=== PATIENT | female | born 1955 | race Caucasian/White ===

== ENCOUNTER 2016-09-06 08:35 | Outpatient (RCR) | payer MEDICAID ==
[~2016-09-06 08:35] MED LIST: ASCO500T PO; ATOR1TAB21 PO; CALC600T57 PO; GABA-279 PO; GLIP5TAB15 PO; LEVA500T PO; LIDO2.5C15 EXT; LOMO2.5T PO; LORA10TA2 PO; LORT5TAB PO; METF-415 PO; METO10TA2 PO; MINO100C PO; OMEP20CA3 PO; POTA10CA PO; VALT500T PO; VITA400C2 PO
== END 2016-10-04 ==
LOC: M ONCR 08:35
PROVIDERS: ATTEND Radiology Radiation Oncology
DX: C50.212 Malignant neoplasm of upper-inner quadrant of left female breast (principal)

== ENCOUNTER 2016-09-11 05:21 | Emergency (ER) | payer MEDICAID ==
[2016-09-11 06:33] LABS: BASO # 0.2 K/mm3 (0.0-0.2); BASO % 1.3 % (0.0-1.0); EOS # 0.2 K/mm3 (0.0-0.50); EOS % 1.3 % (0.0-3.0); LARGE UNSTAINED CELL # 0.3 K/mm3 (0.0-0.4); LARGE UNSTAINED CELL % 2.2 % (0.0-4.0); LYMPH % 12.5 % (24.0-44.0); MEAN CORPUSCULAR HEMOGLOBIN 31.2 pg (27.0-33.0); MEAN CORPUSCULAR HGB CONC 35.1 g/dl (32.0-36.5); MONO # 0.7 K/mm3 (0.0-0.8); MONO % 5.1 % (0.0-5.0); NEUTROPHILS # 10.5 K/mm3 (1.8-7.7); NEUTROPHILS % 77.7 % (36.0-66.0); PLATELET COUNT, AUTOMATED 200 k/mm3 (150-450); WHITE BLOOD COUNT 13.6 K/mm3 (4.0-10.0)
[2016-09-11 06:39] LABS: ALBUMIN 4.1 GM/DL (3.2-5.2); ALBUMIN/GLOBULIN RATIO 1.17 (1.00-1.93); ALKALINE PHOSPHATASE 181 U/L (45-117); ALT/SGPT 24 U/L (12-78); AMYLASE 82 U/L (25-115); ANION GAP 14 MEQ/L (8-16); AST/SGOT 48 U/L (15-37); BILIRUBIN,DIRECT 0.2 MG/DL (0.0-0.2); BILIRUBIN,TOTAL 1.1 MG/DL (0.2-1.0); BLOOD UREA NITROGEN 21 MG/DL (7-18); CALCIUM LEVEL 9.5 MG/DL (8.8-10.2); CARBON DIOXIDE LEVEL 24 MEQ/L (21-32); CHLORIDE LEVEL 104 MEQ/L (98-107); CREATININE FOR GFR 0.91 MG/DL (0.55-1.02); GLOMERULAR FILTRATION RATE > 60.0 (>45); GLUCOSE, FASTING 235 MG/DL (80-110); POTASSIUM SERUM 3.5 MEQ/L (3.5-5.1); SODIUM LEVEL 142 MEQ/L (136-145); TOTAL PROTEIN 7.6 GM/DL (6.4-8.2)
[2016-09-11] MEDS ORDERED: methylPREDNISolone INJ 125 MG/2 ML VIAL (J2930) As Ordered ONE (07:10)
[2016-09-11] MEDS ORDERED: diphenhydrAMINE INJ 50MG/ML VIAL (J1200) As Ordered ONE (07:10)
[2016-09-11] MEDS ORDERED: FAMOTIDINE/NS 20 MG/50 ML BAG (S0028) As Ordered ONE (07:10)
--- NOTE | 2016-09-11 10:22 | EDDOCDS ---
Physician Documentation [facility] Name: Estrellita Ferrari Age: 61 yrs Sex: Female : 1955 Arrival Date: 09/11/2016 Time: 05:21 Bed 13 Private MD: Disposition: 09/11/16 10:03 Discharged to Home/Self Care. Impression: Vomiting, Diarrhea, unspecified, Urticaria, unspecified. - Condition is Stable. - Discharge Instructions: Diarrhea, Hives, Nausea and Vomiting. - Prescriptions for Benadryl 25 mg Oral Capsule - take 1 capsule by ORAL route every 8 hours As needed; 20 tablet. Pepcid 20 mg Oral Tablet - take 1 tablet by ORAL route every 12 hours for 5 days; 10 tablet. Prednisone 20 mg Oral Tablet - take 3 tablet by ORAL route once daily for 5 days; 15 tablet. ZOFRAN ODT 4 mg - dissolve 1 tablet by ORAL route 4 times per day As needed do not chew, do not swallow whole; 10 tablet. - Medication Reconciliation, Local Pharmacy Hours form. - Follow up: Charlee Glass MD; When: 1 - 2 days. - Problem is new. - Symptoms have improved. - Notes: follow up with both of your doctors. return if worsening symptoms Historical: - Allergies: Flagyl; PENICILLINS; SULFA (SULFONAMIDES); breast removal lymph gland removal left side; - Home Meds: 1. Glucotrol Oral once daily 2. Invokana oral 1 tab once daily 3. metformin 500 mg Oral tab 4 tab daily 4. Vitamin C 500 mg Oral tab daily 5. Vitamin E 500mg Oral once daily 6. gabapentin 100 mg Oral tab three times a day 7. cholesterol med - PMHx: Cataracts; Diabetes - NIDDM: controlled; patent ductus; breast cancer; - PSHx: Cholecystectomy; Cataract Surgery- Bilateral; breast and lymph gland removal; - Social history: Smoking status: Patient states former smoker of tobacco. No barriers to communication noted, The patient speaks fluent Surinamese, Speaks appropriately for age. - Family history: No immediate family members are acutely ill. - : The pt / caregiver states he / she is not on anticoagulants. Home medication list is obtained from the patient. - Exposure Risk Screening:: None identified. Vital Signs: 09/11 05:31 BP 137 / 71; Pulse 121; Resp 20; Temp 96.3(T); Pulse Ox 100% on R/A; Weight 58.51 kg / kmg1 128.99 lbs; Height 5 ft. 3 in. (160.02 cm); 05:50 Pulse 108 MON; Pulse Ox 99% ; jc4 07:18 BP 130 / 70 (auto/); jc4 07:32 Pulse 90 MON; Pulse Ox 98% ; jc4 07:33 BP 120 / 58 (auto/); jc4 07:58 BP 123 / 59; Pulse 85; Resp 20; Temp 98.6(TE); Pulse Ox 98% on R/A; Pain 4/10; jc4 08:03 BP 112 / 57 (auto/); jc4 08:04 Pulse 86 MON; Pulse Ox 97% ; jc4 08:17 Pulse 90 MON; Pulse Ox 96% ; jc4 08:18 BP 117 / 56 (auto/); jc4 08:32 Pulse 92 MON; Pulse Ox 94% ; jc4 08:33 BP 119 / 56 (auto/); jc4 08:48 BP 118 / 59 (auto/); jc4 08:48 Pulse 94 MON; Pulse Ox 93% ; jc4 08:51 BP 118 / 59; Pulse 93; Resp 20; Pulse Ox 94% on R/A; Pain 0/10; jc4 09:03 BP 123 / 60 (auto/); jc4 09:03 Pulse 94 MON; Pulse Ox 93% ; jc4 09:18 BP 133 / 59 (auto/); jc4 09:18 Pulse 94 MON; Pulse Ox 92% ; jc4 09:33 BP 113 / 56 (auto/); jc4 09:35 Pulse 92 MON; Pulse Ox 93% ; jc4 09:48 BP 115 / 59 (auto/); jc4 09:48 Pulse 94 MON; Pulse Ox 94% ; jc4 10:20 BP 122 / 59; Pulse 90; Resp 20; Temp 98.5(TE); Pulse Ox 97% on R/A; Pain 0/10; jc4 05:31 Body Mass Index 22.85 (58.51 kg, 160.02 cm) kmg1 MDM: 06:19 IV Saline Lock ordered. mm11 06:19 Undress patient appropriately for examination ordered. mm11 06:19 Amylase Ordered. EDMS 06:19 Basic Metabolic Profile Ordered. EDMS 06:19 CBC with Diff Ordered. EDMS 06:19 Cardiac Injury Profile Ordered. EDMS 06:19 Lipase Ordered. EDMS 06:19 Liver Profile Ordered. EDMS 06:19 Troponin Ordered. EDMS 06:20 NOTHING BY MOUTH+DIET ordered. EDMS 06:48 Basic Metabolic Profile Reviewed. ml 06:48 CBC with Diff Reviewed. ml 06:48 Lipase Reviewed. ml 06:48 Liver Profile Reviewed. ml 06:48 Amylase Reviewed. ml 06:48 Cardiac Injury Profile Reviewed. ml 06:48 Troponin Reviewed. ml 06:49 NS 0.9% 1000 ml IV at bolus once ordered. ml 06:49 Ondansetron 4 mg IVP once ordered. ml 07:06 [employer]/Pulse Ox/q 15 min VS ordered. ml 07:06 Rhythm Strip to chart ordered. ml 07:06 diphenhydrAMINE 50 mg IVP once ordered. ml 07:06 Solu-MEDROL 125 mg IVP once ordered. ml 07:06 Famotidine 20 mg IVPB once over 30 mins; dilute in 50mL of NS ordered. ml 07:53 Financial registration complete. lg 09:33 [facility] Payment Agreement was scanned into [employer] and attached to record. lg Administered Medications: 07:05 Drug: NS 0.9% 1000 ml [sodium chloride 0.9 % intravenous solution] Route: IV; Rate: kmg1 bolus; Site: right antecubital; 08:51 Follow up: BP 118 / 59; Pulse 93 bpm; Resp 20 bpm; Pulse Ox 94% RA; Pain 0/10 Adult; IV jc4 Status: Completed infusion; IV Intake: 1000ml 07:09 Not Given (Patient denies nauseaa): Ondansetron 4 mg IVP once kmg1 07:24 Drug: Famotidine 20 mg [famotidine 10 mg/mL intravenous solution] Route: IVPB; Infused kmg1 Over: 30 mins; Site: right antecubital; 07:59 Follow up: IV Status: Completed infusion; IV Intake: 50ml jc4 07:25 Drug: diphenhydrAMINE 50 mg [diphenhydramine 50 mg/mL injection solution (1 mL)] Route: kmg1 IVP; Site: right antecubital; 07:25 Drug: Solu-MEDROL 125 mg [Solu-Medrol 500 mg intravenous solution (125 mg)] Route: IVP; kmg1 Site: right antecubital; Signatures: Dispatcher [employer] Micaela Pal MD MD ml Ian Bryson RN RN Sandeep Acuna, Pavan Browne lg Cesar Pinon DO DO mm11 Mar Reddy RN RN jc4 Yvonne Zepeda RN kmg1 The chart was reviewed and I authenticate all verbal orders and agree with the evaluation and treatment provided.Corrections: (The following items were deleted from the chart) 05:36 05:30 PSHx: breast removal and lymph gland removal; madan hager Attachments: 09:33 [facility] Payment Agreement lg MTDD
--- NOTE | 2016-09-11 10:22 | EDDOCDS ---
Nurse's Notes [facility] Name: Estrellita Ferrari Age: 61 yrs Sex: Female : 1955 Arrival Date: 09/11/2016 Time: 05:21 Bed 13 Private MD: Diagnosis: Vomiting;Diarrhea, unspecified;Urticaria, unspecified Presentation: 09/11 05:24 Presenting complaint: Patient states: she started with swelling and redness of the body cz a couple of hours ago, pt has history of breast cancer. Adult Sepsis Screening: The patient does not have new or worsening altered mentation. Patient's respiratory rate is less than 22. Systolic blood pressure is greater than 100. Patient has a qSOFA score of 0- Negative Sepsis Screen. Suicide/Homicide risk assessment- the patient denies having any suicidal and/or homicidal ideations and does not present with any other emotional, behavioral or mental health complaints. Status: Patient is not a public services librarian or dependent. Transition of care: patient was not received from another setting of care. 05:24 Acuity: ERICK Level 3 cz 05:24 Method Of Arrival: Walkin/Carried/Asstd cz Triage Assessment: 05:31 General: Appears uncomfortable. Pain: Denies pain. Pt Declines HIV testing. cz Historical: - Allergies: Flagyl; PENICILLINS; SULFA (SULFONAMIDES); breast removal lymph gland removal left side; - Home Meds: 1. Glucotrol Oral once daily 2. Invokana oral 1 tab once daily 3. metformin 500 mg Oral tab 4 tab daily 4. Vitamin C 500 mg Oral tab daily 5. Vitamin E 500mg Oral once daily 6. gabapentin 100 mg Oral tab three times a day 7. cholesterol med - PMHx: Cataracts; Diabetes - NIDDM: controlled; patent ductus; breast cancer; - PSHx: Cholecystectomy; Cataract Surgery- Bilateral; breast and lymph gland removal; - Social history: Smoking status: Patient states former smoker of tobacco. No barriers to communication noted, The patient speaks fluent Algerian, Speaks appropriately for age. - Family history: No immediate family members are acutely ill. - : The pt / caregiver states he / she is not on anticoagulants. Home medication list is obtained from the patient. - Exposure Risk Screening:: None identified. Screenin:57 Screening information is obtained from the patient. Fall risk: No risks identified. jc4 Assistance ADL's: requires no assistance with activities of daily living. Abuse/DV Screen: The patient / caregiver reports he/she is: not in a situation that causes fear, pain or injury. Nutritional screening: No deficits noted. Advance Directives: Currently, there is no health care proxy. There is no active DNR order. There is no living will. There is no Power of Cotton Roll Packer. home support is adequate. Assessment: 05:51 General: Appears in no apparent distress, comfortable, Behavior is appropriate for age, kmg1 cooperative. Respiratory: Airway is patent Respiratory effort is even, unlabored, Respiratory pattern is regular, symmetrical. GI: Abdomen is non- distended Bowel sounds present X 4 quads. Abd is soft and non tender X 4 quads. Reports nausea, vomiting. Derm: Rash noted that is red, raised, on chest, right arm and left arm Swollen area noted on left femoral area, left inguinal area, left iliac crest, left arm and left hand. 07:55 General: Appears in no apparent distress, comfortable, Behavior is cooperative. jc4 Neurological: Level of Consciousness is awake, alert, Oriented to person, place, time. EENT: no difficulty accommodating own saliva. Reports "feels a lump in my throat that doesn't want to go anywhere". Respiratory: Airway is patent Respiratory effort is even, unlabored, Respiratory pattern is regular, symmetrical. GI: Reports "feeling queasy". Derm: Skin is pink, warm & dry. redness and swelling noted to left arm. Redness noted to lower abdomen and left leg, patient states is improved since time of arrival. 08:31 General: Pt resting on stretcher with eyes closed. Respirations easy and full. No jc4 distress noted at this time. Significant other at bedside. IVF infusing well, site clear. Call santoro in reach. 09:48 General: Pt resting on stretcher. Denies any nausea, or abdominal cramping. Color pink, jc4 skin warm and dry. Respirations easy and full. control clerk - sinus rhythm without ectopy. Saline lock in place. Pt tolerating ice chips well. 10:19 General: Appears in no apparent distress, comfortable, Behavior is cooperative. Pain: jc4 Denies pain. Neurological: Level of Consciousness is awake, alert, Oriented to person, place, time. Respiratory: Airway is patent Respiratory effort is even, unlabored, Respiratory pattern is regular, symmetrical. GI: Denies cramping, nausea. Derm: Skin is pink, warm & dry. mild erythema noted to lower abdomen, left arm, left leg. Vital Signs: 05:31 BP 137 / 71; Pulse 121; Resp 20; Temp 96.3(T); Pulse Ox 100% on R/A; Weight 58.51 kg; kmg1 Height 5 ft. 3 in. (160.02 cm); 05:50 Pulse 108 MON; Pulse Ox 99% ; jc4 07:18 BP 130 / 70 (auto/); jc4 07:32 Pulse 90 MON; Pulse Ox 98% ; jc4 07:33 BP 120 / 58 (auto/); jc4 07:58 BP 123 / 59; Pulse 85; Resp 20; Temp 98.6(TE); Pulse Ox 98% on R/A; Pain 4/10; jc4 08:03 BP 112 / 57 (auto/); jc4 08:04 Pulse 86 MON; Pulse Ox 97% ; jc4 08:17 Pulse 90 MON; Pulse Ox 96% ; jc4 08:18 BP 117 / 56 (auto/); jc4 08:32 Pulse 92 MON; Pulse Ox 94% ; jc4 08:33 BP 119 / 56 (auto/); jc4 08:48 BP 118 / 59 (auto/); jc4 08:48 Pulse 94 MON; Pulse Ox 93% ; jc4 08:51 BP 118 / 59; Pulse 93; Resp 20; Pulse Ox 94% on R/A; Pain 0/10; jc4 09:03 BP 123 / 60 (auto/); jc4 09:03 Pulse 94 MON; Pulse Ox 93% ; jc4 09:18 BP 133 / 59 (auto/); jc4 09:18 Pulse 94 MON; Pulse Ox 92% ; jc4 09:33 BP 113 / 56 (auto/); jc4 09:35 Pulse 92 MON; Pulse Ox 93% ; jc4 09:48 BP 115 / 59 (auto/); jc4 09:48 Pulse 94 MON; Pulse Ox 94% ; jc4 10:20 BP 122 / 59; Pulse 90; Resp 20; Temp 98.5(TE); Pulse Ox 97% on R/A; Pain 0/10; jc4 05:31 Body Mass Index 22.85 (58.51 kg, 160.02 cm) kmg1 Vitals: 05:31 Log In Time: September 11, 2016 at 05:21. cz ED Course: 05:23 Patient visited by Deonna Medrano. gjb 05:23 Patient moved to Waiting gjb 05:28 Triage Initiated cz 05:32 Patient moved to 13 cz 06:11 Patient visited by Yvonne Zepeda, JOSE CARLOS. kmg1 06:20 Amylase Sent. kmg1 06:20 Basic Metabolic Profile Sent. kmg1 06:20 CBC with Diff Sent. kmg1 06:20 Cardiac Injury Profile Sent. kmg1 06:20 Lipase Sent. kmg1 06:20 Liver Profile Sent. kmg1 06:20 Troponin Sent. kmg1 06:20 Inserted saline lock: 20 gauge in right antecubital area. Labs drawn. (by ED staff). kmg1 Sent per order to lab. 06:21 Patient visited by Yvonne Zepeda RN. kmg1 06:59 Micaela Tapia MD is Attending Physician. ml 06:59 Patient visited by Micaela Tapia MD. ml 07:15 The patient / caregiver is instructed regarding the plan of care and ED course. jc4 07:54 Patient visited by Mar Reddy RN. jc4 08:00 Patient visited by Mar Reddy RN. jc4 08:31 Patient visited by Mar Reddy RN. jc4 08:50 Patient visited by Mar Reddy RN. jc4 09:33 [facility] Payment Agreement was scanned into [employer] and attached to record. lg 09:48 Patient visited by Mar Reddy RN. jc4 09:50 Patient visited by Mar Reddy RN. jc4 10:02 Charlee Glass MD is Referral Physician. ml 10:20 Discontinued lock intact, bleeding controlled, pressure dressing applied, No jc4 redness/swelling at site. No procedures done that require assistance. Administered Medications: 07:05 Drug: NS 0.9% 1000 ml [sodium chloride 0.9 % intravenous solution] Route: IV; Rate: kmg1 bolus; Site: right antecubital; 08:51 Follow up: BP 118 / 59; Pulse 93 bpm; Resp 20 bpm; Pulse Ox 94% RA; Pain 0/10 Adult; IV jc4 Status: Completed infusion; IV Intake: 1000ml 07:09 Not Given (Patient denies nauseaa): Ondansetron 4 mg IVP once kmg1 07:24 Drug: Famotidine 20 mg [famotidine 10 mg/mL intravenous solution] Route: IVPB; Infused kmg1 Over: 30 mins; Site: right antecubital; 07:59 Follow up: IV Status: Completed infusion; IV Intake: 50ml jc4 07:25 Drug: diphenhydrAMINE 50 mg [diphenhydramine 50 mg/mL injection solution (1 mL)] Route: kmg1 IVP; Site: right antecubital; 07:25 Drug: Solu-MEDROL 125 mg [Solu-Medrol 500 mg intravenous solution (125 mg)] Route: IVP; kmg1 Site: right antecubital; Intake: 07:59 IV: 50.00ml; Total: 50.00ml. jc4 08:51 IV: 1000.00ml; Total: 1050.00ml. jc4 Order Results: Lab Order: Amylase; SPEC'M 09/11/16 05:50 Test: AMYLASE; Value: 82; Range: 25-115; Units: U/L; Status: F Lab Order: Basic Metabolic Profile; SPEC'M 09/11/16 05:50 Test: GLUCOSE, FASTING; Value: 235; Range: 80-110; Abnormal: Above high normal; Units: MG/DL; Status: F Test: BLOOD UREA NITROGEN; Value: 21; Range: 7-18; Abnormal: Above high normal; Units: MG/DL; Status: F Test: CREATININE FOR GFR; Value: 0.91; Range: 0.55-1.02; Units: MG/DL; Status: F Test: GLOMERULAR FILTRATION RATE; Value: > 60.0; Range: >45; Status: F Test: SODIUM LEVEL; Value: 142; Range: 136-145; Units: MEQ/L; Status: F Test: POTASSIUM SERUM; Value: 3.5; Range: 3.5-5.1; Units: MEQ/L; Status: F Test: CHLORIDE LEVEL; Value: 104; Range: 98-107; Units: MEQ/L; Status: F Test: CARBON DIOXIDE LEVEL; Value: 24; Range: 21-32; Units: MEQ/L; Status: F Test: ANION GAP; Value: 14; Range: 8-16; Units: MEQ/L; Status: F Test: CALCIUM LEVEL; Value: 9.5; Range: 8.8-10.2; Units: MG/DL; Status: F Test Note: ; Units are mL/min/1.73 m2 Chronic Kidney Disease Staging per NKF: Stage I & II GFR >=60 Normal to Mildly Decreased Stage III GFR 30-59 Moderately Decreased Stage IV GFR 15-29 Severely Decreased Stage V GFR <15 Very Little GFR Left ESRD GFR <15 on HIGH CLIMBER Lab Order: CBC with Diff; SPEC'M 09/11/16 05:50 Test: WHITE BLOOD COUNT; Value: 13.6; Range: 4.0-10.0; Abnormal: Above high normal; Units: K/mm3; Status: F Test: RED BLOOD COUNT; Value: 5.64; Range: 4.00-5.40; Abnormal: Above high normal; Units: M/mm3; Status: F Test: HEMOGLOBIN; Value: 17.6; Range: 12.0-16.0; Abnormal: Above high normal; Units: g/dl; Status: F Test: HEMATOCRIT; Value: 50.2; Range: 36.0-47.0; Abnormal: Above high normal; Units: %; Status: F Test: MEAN CORPUSCULAR VOLUME; Value: 89.0; Range: 80.0-96.0; Units: fl; Status: F Test: MEAN CORPUSCULAR HEMOGLOBIN; Value: 31.2; Range: 27.0-33.0; Units: pg; Status: F Test: MEAN CORPUSCULAR HGB CONC; Value: 35.1; Range: 32.0-36.5; Units: g/dl; Status: F Test: RED CELL DISTRIBUTION WIDTH; Value: 14.0; Range: 11.5-14.5; Units: %; Status: F Test: PLATELET COUNT, AUTOMATED; Value: 200; Range: 150-450; Units: k/mm3; Status: F Test: NEUTROPHILS %; Value: 77.7; Range: 36.0-66.0; Abnormal: Above high normal; Units: %; Status: F Test: LYMPH %; Value: 12.5; Range: 24.0-44.0; Abnormal: Below low normal; Units: %; Status: F Test: MONO %; Value: 5.1; Range: 0.0-5.0; Abnormal: Above high normal; Units: %; Status: F Test: EOS %; Value: 1.3; Range: 0.0-3.0; Units: %; Status: F Test: BASO %; Value: 1.3; Range: 0.0-1.0; Abnormal: Above high normal; Units: %; Status: F Test: LARGE UNSTAINED CELL %; Value: 2.2; Range: 0.0-4.0; Units: %; Status: F Test: NEUTROPHILS #; Value: 10.5; Range: 1.8-7.7; Abnormal: Above high normal; Units: K/mm3; Status: F Test: LYMPH #; Value: 2.0; Range: 1.5-4.5; Units: K/mm3; Status: F Test: MONO #; Value: 0.7; Range: 0.0-0.8; Units: K/mm3; Status: F Test: EOS #; Value: 0.2; Range: 0.0-0.50; Units: K/mm3; Status: F Test: BASO #; Value: 0.2; Range: 0.0-0.2; Units: K/mm3; Status: F Test: LARGE UNSTAINED CELL #; Value: 0.3; Range: 0.0-0.4; Units: K/mm3; Status: F Lab Order: Cardiac Injury Profile; SPEC' 09/11/16 05:50 Test: CPK CREATINE PHOSPHOKINASE; Value: 65; Range: 26-192; Units: U/L; Status: F Test: CK-MB VALUE MASS; Value: 1.1; Range: 0.0-3.6; Units: NG/ML; Status: F Test: MB/CK RELATIVE INDEX; Value: 1.69; Range: < OR =4; Status: F Test Note: ; DIAGNOSIS CRITERIA MMB ng/ml Relative Index (RI) NON-AMI < or = 5 N/A DAVID ZONE > 5 < or = 4 AMI > 5 > 4 Lab Order: Lipase; SPEC'M 09/11/16 05:50 Test: LIPASE; Value: 462; Range: 73-393; Abnormal: Above high normal; Units: U/L; Status: F Lab Order: Liver Profile; SPEC'M 09/11/16 05:50 Test: AST/SGOT; Value: 48; Range: 15-37; Abnormal: Above high normal; Units: U/L; Status: F Test: ALT/SGPT; Value: 24; Range: 12-78; Units: U/L; Status: F Test: ALKALINE PHOSPHATASE; Value: 181; Range: 45-117; Abnormal: Above high normal; Units: U/L; Status: F Test: BILIRUBIN,TOTAL; Value: 1.1; Range: 0.2-1.0; Abnormal: Above high normal; Units: MG/DL; Status: F Test: BILIRUBIN,DIRECT; Value: 0.2; Range: 0.0-0.2; Units: MG/DL; Status: F Test: TOTAL PROTEIN; Value: 7.6; Range: 6.4-8.2; Units: GM/DL; Status: F Test: ALBUMIN; Value: 4.1; Range: 3.2-5.2; Units: GM/DL; Status: F Test: ALBUMIN/GLOBULIN RATIO; Value: 1.17; Range: 1.00-1.93; Status: F Lab Order: Troponin; SPEC'M 09/11/16 05:50 Test: TROPONIN I; Value: < 0.02; Range: < 0.10; Units: NG/ML; Status: F Test Note: ; Troponin I Reference Interval for [place] LOCI: 99th Percentile= 0.00-0.045 ng/ml Risk Stratification: <= 0.10 ng/ml Decreased Risk for Adverse Clinical Events. 0.10-1.50 ng/ml Increased Risk for Adverse Clinical Events. Evaluation of additional criterion and/or repeat testing in 2-6 hours is suggested to rule out myocardial damage. >= 1.50 ng/ml Indicative of Myocardial Injury. Outcome: 10:03 Discharge ordered by Provider. ml 10:20 Discharge Assessment: Patient awake, alert and oriented x 3. No cognitive and/or jc4 functional deficits noted. Patient verbalized understanding of disposition instructions. patient administered narcotics - no. The following High Risk Discharge criteria are identified: None. Discharged to home ambulatory, with significant other. Condition: stable. Discharge instructions given to patient, Instructed on discharge instructions, follow up and referral plans. medication usage, Demonstrated understanding of instructions, medications, Pt was receptive of discharge instructions/ teaching. No special radiology studies were completed. Property :Personal belongings accompany Pt. 10:21 Patient left the ED. jc4 Signatures: Micaela Tapia MD MD ml Garrison, Kelly RN RN kmg1 Ian Bryson RN RN Sandeep Meyer, Mar Salmon lg, RN RN jc4 Deonna Medrano Corrections: (The following items were deleted from the chart) 05:36 05:30 PSHx: breast removal and lymph gland removal; cz cz 06:06 05:31 BP 137 / 71; Pulse 121bpm; Resp 20bpm; Temp 96.3F Tympanic; 58.51 kg; Height 5 kmg1 ft. 3 in.; BMI: 22.8; cz 06:10 05:51 Derm: Rash noted that is red, raised, on chest, right arm and [place] [id number] MTDD
--- NOTE | 2016-09-13 12:40 | EDDOCDS ---
Nurse's Notes [facility] Name: Estrellita Ferrari Age: 61 yrs Sex: Female : 1955 Arrival Date: 09/11/2016 Time: 05:21 Bed 13 Private MD: Diagnosis: Vomiting;Diarrhea, unspecified;Urticaria, unspecified Presentation: 09/11 05:24 Presenting complaint: Patient states: she started with swelling and redness of the body cz a couple of hours ago, pt has history of breast cancer. Adult Sepsis Screening: The patient does not have new or worsening altered mentation. Patient's respiratory rate is less than 22. Systolic blood pressure is greater than 100. Patient has a qSOFA score of 0- Negative Sepsis Screen. Suicide/Homicide risk assessment- the patient denies having any suicidal and/or homicidal ideations and does not present with any other emotional, behavioral or mental health complaints. Status: Patient is not a service advocate contact or dependent. Transition of care: patient was not received from another setting of care. 05:24 Acuity: ERICK Level 3 cz 05:24 Method Of Arrival: Walkin/Carried/Asstd cz Triage Assessment: 05:31 General: Appears uncomfortable. Pain: Denies pain. Pt Declines HIV testing. cz Historical: - Allergies: Flagyl; PENICILLINS; SULFA (SULFONAMIDES); breast removal lymph gland removal left side; - Home Meds: 1. Glucotrol Oral once daily 2. Invokana oral 1 tab once daily 3. metformin 500 mg Oral tab 4 tab daily 4. Vitamin C 500 mg Oral tab daily 5. Vitamin E 500mg Oral once daily 6. gabapentin 100 mg Oral tab three times a day 7. cholesterol med - PMHx: Cataracts; Diabetes - NIDDM: controlled; patent ductus; breast cancer; - PSHx: Cholecystectomy; Cataract Surgery- Bilateral; breast and lymph gland removal; - Social history: Smoking status: Patient states former smoker of tobacco. No barriers to communication noted, The patient speaks fluent French, Speaks appropriately for age. - Family history: No immediate family members are acutely ill. - : The pt / caregiver states he / she is not on anticoagulants. Home medication list is obtained from the patient. - Exposure Risk Screening:: None identified. Screenin:57 Screening information is obtained from the patient. Fall risk: No risks identified. jc4 Assistance ADL's: requires no assistance with activities of daily living. Abuse/DV Screen: The patient / caregiver reports he/she is: not in a situation that causes fear, pain or injury. Nutritional screening: No deficits noted. Advance Directives: Currently, there is no health care proxy. There is no active DNR order. There is no living will. There is no Power of Beef Breaker. home support is adequate. Assessment: 05:51 General: Appears in no apparent distress, comfortable, Behavior is appropriate for age, kmg1 cooperative. Respiratory: Airway is patent Respiratory effort is even, unlabored, Respiratory pattern is regular, symmetrical. GI: Abdomen is non- distended Bowel sounds present X 4 quads. Abd is soft and non tender X 4 quads. Reports nausea, vomiting. Derm: Rash noted that is red, raised, on chest, right arm and left arm Swollen area noted on left femoral area, left inguinal area, left iliac crest, left arm and left hand. 07:55 General: Appears in no apparent distress, comfortable, Behavior is cooperative. jc4 Neurological: Level of Consciousness is awake, alert, Oriented to person, place, time. EENT: no difficulty accommodating own saliva. Reports "feels a lump in my throat that doesn't want to go anywhere". Respiratory: Airway is patent Respiratory effort is even, unlabored, Respiratory pattern is regular, symmetrical. GI: Reports "feeling queasy". Derm: Skin is pink, warm & dry. redness and swelling noted to left arm. Redness noted to lower abdomen and left leg, patient states is improved since time of arrival. 08:31 General: Pt resting on stretcher with eyes closed. Respirations easy and full. No jc4 distress noted at this time. Significant other at bedside. IVF infusing well, site clear. Call santoro in reach. 09:48 General: Pt resting on stretcher. Denies any nausea, or abdominal cramping. Color pink, jc4 skin warm and dry. Respirations easy and full. patient monitor - sinus rhythm without ectopy. Saline lock in place. Pt tolerating ice chips well. 10:19 General: Appears in no apparent distress, comfortable, Behavior is cooperative. Pain: jc4 Denies pain. Neurological: Level of Consciousness is awake, alert, Oriented to person, place, time. Respiratory: Airway is patent Respiratory effort is even, unlabored, Respiratory pattern is regular, symmetrical. GI: Denies cramping, nausea. Derm: Skin is pink, warm & dry. mild erythema noted to lower abdomen, left arm, left leg. Vital Signs: 05:31 BP 137 / 71; Pulse 121; Resp 20; Temp 96.3(T); Pulse Ox 100% on R/A; Weight 58.51 kg; kmg1 Height 5 ft. 3 in. (160.02 cm); 05:50 Pulse 108 MON; Pulse Ox 99% ; jc4 07:18 BP 130 / 70 (auto/); jc4 07:32 Pulse 90 MON; Pulse Ox 98% ; jc4 07:33 BP 120 / 58 (auto/); jc4 07:58 BP 123 / 59; Pulse 85; Resp 20; Temp 98.6(TE); Pulse Ox 98% on R/A; Pain 4/10; jc4 08:03 BP 112 / 57 (auto/); jc4 08:04 Pulse 86 MON; Pulse Ox 97% ; jc4 08:17 Pulse 90 MON; Pulse Ox 96% ; jc4 08:18 BP 117 / 56 (auto/); jc4 08:32 Pulse 92 MON; Pulse Ox 94% ; jc4 08:33 BP 119 / 56 (auto/); jc4 08:48 BP 118 / 59 (auto/); jc4 08:48 Pulse 94 MON; Pulse Ox 93% ; jc4 08:51 BP 118 / 59; Pulse 93; Resp 20; Pulse Ox 94% on R/A; Pain 0/10; jc4 09:03 BP 123 / 60 (auto/); jc4 09:03 Pulse 94 MON; Pulse Ox 93% ; jc4 09:18 BP 133 / 59 (auto/); jc4 09:18 Pulse 94 MON; Pulse Ox 92% ; jc4 09:33 BP 113 / 56 (auto/); jc4 09:35 Pulse 92 MON; Pulse Ox 93% ; jc4 09:48 BP 115 / 59 (auto/); jc4 09:48 Pulse 94 MON; Pulse Ox 94% ; jc4 10:20 BP 122 / 59; Pulse 90; Resp 20; Temp 98.5(TE); Pulse Ox 97% on R/A; Pain 0/10; jc4 05:31 Body Mass Index 22.85 (58.51 kg, 160.02 cm) kmg1 Vitals: 05:31 Log In Time: September 11, 2016 at 05:21. cz ED Course: 05:23 Patient visited by Deonna Medrano. gjb 05:23 Patient moved to Waiting gjb 05:28 Triage Initiated cz 05:32 Patient moved to 13 cz 06:11 Patient visited by Yvonne Zepeda, JOSE CARLOS. kmg1 06:20 Amylase Sent. kmg1 06:20 Basic Metabolic Profile Sent. kmg1 06:20 CBC with Diff Sent. kmg1 06:20 Cardiac Injury Profile Sent. kmg1 06:20 Lipase Sent. kmg1 06:20 Liver Profile Sent. kmg1 06:20 Troponin Sent. kmg1 06:20 Inserted saline lock: 20 gauge in right antecubital area. Labs drawn. (by ED staff). kmg1 Sent per order to lab. 06:21 Patient visited by Yvonne Zepeda RN. kmg1 06:59 Micaela Tapia MD is Attending Physician. ml 06:59 Patient visited by Micaela Tapia MD. ml 07:15 The patient / caregiver is instructed regarding the plan of care and ED course. jc4 07:54 Patient visited by Mar Reddy RN. jc4 08:00 Patient visited by Mar Reddy RN. jc4 08:31 Patient visited by Mar Reddy RN. jc4 08:50 Patient visited by Mar Reddy RN. jc4 09:33 [facility] [place] Agreement was scanned into [employer] and attached to record. lg 09:48 Patient visited by Mar Reddy RN. jc4 09:50 Patient visited by Mar Reddy RN. jc4 10:02 Charlee Glass MD is Referral Physician. ml 10:20 Discontinued lock intact, bleeding controlled, pressure dressing applied, No jc4 redness/swelling at site. No procedures done that require assistance. 12:15 Trend VS was scanned into WEbook and attached to record. gb 13:42 T-Sheet-- Draft Copy was scanned into WEbook and attached to record. seh Administered Medications: 07:05 Drug: NS 0.9% 1000 ml [sodium chloride 0.9 % intravenous solution] Route: IV; Rate: kmg1 bolus; Site: right antecubital; 08:51 Follow up: BP 118 / 59; Pulse 93 bpm; Resp 20 bpm; Pulse Ox 94% RA; Pain 0/10 Adult; IV jc4 Status: Completed infusion; IV Intake: 1000ml 07:09 Not Given (Patient denies nauseaa): Ondansetron 4 mg IVP once kmg1 07:24 Drug: Famotidine 20 mg [famotidine 10 mg/mL intravenous solution] Route: IVPB; Infused kmg1 Over: 30 mins; Site: right antecubital; 07:59 Follow up: IV Status: Completed infusion; IV Intake: 50ml jc4 07:25 Drug: diphenhydrAMINE 50 mg [diphenhydramine 50 mg/mL injection solution (1 mL)] Route: kmg1 IVP; Site: right antecubital; 07:25 Drug: Solu-MEDROL 125 mg [Solu-Medrol 500 mg intravenous solution (125 mg)] Route: IVP; kmg1 Site: right antecubital; Attachments: 12:15 Trend VS gb Intake: 07:59 IV: 50.00ml; Total: 50.00ml. jc4 08:51 IV: 1000.00ml; Total: 1050.00ml. jc4 Order Results: Lab Order: Amylase; SPEC'M 09/11/16 05:50 Test: AMYLASE; Value: 82; Range: 25-115; Units: U/L; Status: F Lab Order: Basic Metabolic Profile; SPEC'M 09/11/16 05:50 Test: GLUCOSE, FASTING; Value: 235; Range: 80-110; Abnormal: Above high normal; Units: MG/DL; Status: F Test: BLOOD UREA NITROGEN; Value: 21; Range: 7-18; Abnormal: Above high normal; Units: MG/DL; Status: F Test: CREATININE FOR GFR; Value: 0.91; Range: 0.55-1.02; Units: MG/DL; Status: F Test: GLOMERULAR FILTRATION RATE; Value: > 60.0; Range: >45; Status: F Test: SODIUM LEVEL; Value: 142; Range: 136-145; Units: MEQ/L; Status: F Test: POTASSIUM SERUM; Value: 3.5; Range: 3.5-5.1; Units: MEQ/L; Status: F Test: CHLORIDE LEVEL; Value: 104; Range: 98-107; Units: MEQ/L; Status: F Test: CARBON DIOXIDE LEVEL; Value: 24; Range: 21-32; Units: MEQ/L; Status: F Test: ANION GAP; Value: 14; Range: 8-16; Units: MEQ/L; Status: F Test: CALCIUM LEVEL; Value: 9.5; Range: 8.8-10.2; Units: MG/DL; Status: F Test Note: ; Units are mL/min/1.73 m2 Chronic Kidney Disease Staging per NKF: Stage I & II GFR >=60 Normal to Mildly Decreased Stage III GFR 30-59 Moderately Decreased Stage IV GFR 15-29 Severely Decreased Stage V GFR <15 Very Little GFR Left ESRD GFR <15 on PUMPER BREWERY Lab Order: CBC with Diff; SPEC'M 09/11/16 05:50 Test: WHITE BLOOD COUNT; Value: 13.6; Range: 4.0-10.0; Abnormal: Above high normal; Units: K/mm3; Status: F Test: RED BLOOD COUNT; Value: 5.64; Range: 4.00-5.40; Abnormal: Above high normal; Units: M/mm3; Status: F Test: HEMOGLOBIN; Value: 17.6; Range: 12.0-16.0; Abnormal: Above high normal; Units: g/dl; Status: F Test: HEMATOCRIT; Value: 50.2; Range: 36.0-47.0; Abnormal: Above high normal; Units: %; Status: F Test: MEAN CORPUSCULAR VOLUME; Value: 89.0; Range: 80.0-96.0; Units: fl; Status: F Test: MEAN CORPUSCULAR HEMOGLOBIN; Value: 31.2; Range: 27.0-33.0; Units: pg; Status: F Test: MEAN CORPUSCULAR HGB CONC; Value: 35.1; Range: 32.0-36.5; Units: g/dl; Status: F Test: RED CELL DISTRIBUTION WIDTH; Value: 14.0; Range: 11.5-14.5; Units: %; Status: F Test: PLATELET COUNT, AUTOMATED; Value: 200; Range: 150-450; Units: k/mm3; Status: F Test: NEUTROPHILS %; Value: 77.7; Range: 36.0-66.0; Abnormal: Above high normal; Units: %; Status: F Test: LYMPH %; Value: 12.5; Range: 24.0-44.0; Abnormal: Below low normal; Units: %; Status: F Test: MONO %; Value: 5.1; Range: 0.0-5.0; Abnormal: Above high normal; Units: %; Status: F Test: EOS %; Value: 1.3; Range: 0.0-3.0; Units: %; Status: F Test: BASO %; Value: 1.3; Range: 0.0-1.0; Abnormal: Above high normal; Units: %; Status: F Test: LARGE UNSTAINED CELL %; Value: 2.2; Range: 0.0-4.0; Units: %; Status: F Test: NEUTROPHILS #; Value: 10.5; Range: 1.8-7.7; Abnormal: Above high normal; Units: K/mm3; Status: F Test: LYMPH #; Value: 2.0; Range: 1.5-4.5; Units: K/mm3; Status: F Test: MONO #; Value: 0.7; Range: 0.0-0.8; Units: K/mm3; Status: F Test: EOS #; Value: 0.2; Range: 0.0-0.50; Units: K/mm3; Status: F Test: BASO #; Value: 0.2; Range: 0.0-0.2; Units: K/mm3; Status: F Test: LARGE UNSTAINED CELL #; Value: 0.3; Range: 0.0-0.4; Units: K/mm3; Status: F Lab Order: Cardiac Injury Profile; SPEC'M 09/11/16 05:50 Test: CPK CREATINE PHOSPHOKINASE; Value: 65; Range: 26-192; Units: U/L; Status: F Test: CK-MB VALUE MASS; Value: 1.1; Range: 0.0-3.6; Units: NG/ML; Status: F Test: MB/CK RELATIVE INDEX; Value: 1.69; Range: < OR =4; Status: F Test Note: ; DIAGNOSIS CRITERIA MMB ng/ml Relative Index (RI) NON-AMI < or = 5 N/A DAVID ZONE > 5 < or = 4 AMI > 5 > 4 Lab Order: Lipase; SPEC'M 09/11/16 05:50 Test: LIPASE; Value: 462; Range: 73-393; Abnormal: Above high normal; Units: U/L; Status: F Lab Order: Liver Profile; SPEC'M 09/11/16 05:50 Test: AST/SGOT; Value: 48; Range: 15-37; Abnormal: Above high normal; Units: U/L; Status: F Test: ALT/SGPT; Value: 24; Range: 12-78; Units: U/L; Status: F Test: ALKALINE PHOSPHATASE; Value: 181; Range: 45-117; Abnormal: Above high normal; Units: U/L; Status: F Test: BILIRUBIN,TOTAL; Value: 1.1; Range: 0.2-1.0; Abnormal: Above high normal; Units: MG/DL; Status: F Test: BILIRUBIN,DIRECT; Value: 0.2; Range: 0.0-0.2; Units: MG/DL; Status: F Test: TOTAL PROTEIN; Value: 7.6; Range: 6.4-8.2; Units: GM/DL; Status: F Test: ALBUMIN; Value: 4.1; Range: 3.2-5.2; Units: GM/DL; Status: F Test: ALBUMIN/GLOBULIN RATIO; Value: 1.17; Range: 1.00-1.93; Status: F Lab Order: Troponin; SPEC'M 09/11/16 05:50 Test: TROPONIN I; Value: < 0.02; Range: < 0.10; Units: NG/ML; Status: F Test Note: ; Troponin I Reference Interval for [email or web address] LOCI: 99th Percentile= 0.00-0.045 ng/ml Risk Stratification: <= 0.10 ng/ml Decreased Risk for Adverse Clinical Events. 0.10-1.50 ng/ml Increased Risk for Adverse Clinical Events. Evaluation of additional criterion and/or repeat testing in 2-6 hours is suggested to rule out myocardial damage. >= 1.50 ng/ml Indicative of Myocardial Injury. Outcome: 10:03 Discharge ordered by Provider. ml 10:20 Discharge Assessment: Patient awake, alert and oriented x 3. No cognitive and/or jc4 functional deficits noted. Patient verbalized understanding of disposition instructions. patient administered narcotics - no. The following High Risk Discharge criteria are identified: None. Discharged to home ambulatory, with significant other. Condition: stable. Discharge instructions given to patient, Instructed on discharge instructions, follow up and referral plans. medication usage, Demonstrated understanding of instructions, medications, Pt was receptive of discharge instructions/ teaching. No special radiology studies were completed. Property :Personal belongings accompany Pt. 10:21 Patient left the ED. jc4 Signatures: Micaela Tapia MD MD Yvonne Zepeda, RN RN kmg1 Ian Bryson RN RN cz Aspen Garcia, Reg Reg gb Sandeep Meyer, Reg Reg lg Mar Reddy RN RN jc4 Deonna Medrano Sarah seh Corrections: (The following items were deleted from the chart) 05:36 05:30 PSHx: breast removal and lymph gland removal; cz cz 06:06 05:31 BP 137 / 71; Pulse 121bpm; Resp 20bpm; Temp 96.3F Tympanic; 58.51 kg; Height 5 kmg1 ft. 3 in.; BMI: 22.8; cz 06:10 05:51 Derm: Rash noted that is red, raised, on chest, right arm and left arm kmg1 kmg1 Chart Complete MTDD
--- NOTE | 2016-09-13 12:40 | EDDOCDS ---
Physician Documentation [facility] Name: Estrellita Ferrari Age: 61 yrs Sex: Female : 1955 Arrival Date: 09/11/2016 Time: 05:21 Bed 13 Private MD: Disposition: 09/11/16 10:03 Discharged to Home/Self Care. Impression: Vomiting, Diarrhea, unspecified, Urticaria, unspecified. - Condition is Stable. - Discharge Instructions: Diarrhea, Hives, Nausea and Vomiting. - Prescriptions for Benadryl 25 mg Oral Capsule - take 1 capsule by ORAL route every 8 hours As needed; 20 tablet. Pepcid 20 mg Oral Tablet - take 1 tablet by ORAL route every 12 hours for 5 days; 10 tablet. Prednisone 20 mg Oral Tablet - take 3 tablet by ORAL route once daily for 5 days; 15 tablet. ZOFRAN ODT 4 mg - dissolve 1 tablet by ORAL route 4 times per day As needed do not chew, do not swallow whole; 10 tablet. - Medication Reconciliation, Local Pharmacy Hours form. - Follow up: Charlee Glass MD; When: 1 - 2 days. - Problem is new. - Symptoms have improved. - Notes: follow up with both of your doctors. return if worsening symptoms Historical: - Allergies: Flagyl; PENICILLINS; SULFA (SULFONAMIDES); breast removal lymph gland removal left side; - Home Meds: 1. Glucotrol Oral once daily 2. Invokana oral 1 tab once daily 3. metformin 500 mg Oral tab 4 tab daily 4. Vitamin C 500 mg Oral tab daily 5. Vitamin E 500mg Oral once daily 6. gabapentin 100 mg Oral tab three times a day 7. cholesterol med - PMHx: Cataracts; Diabetes - NIDDM: controlled; patent ductus; breast cancer; - PSHx: Cholecystectomy; Cataract Surgery- Bilateral; breast and lymph gland removal; - Social history: Smoking status: Patient states former smoker of tobacco. No barriers to communication noted, The patient speaks fluent Kosovan, Speaks appropriately for age. - Family history: No immediate family members are acutely ill. - : The pt / caregiver states he / she is not on anticoagulants. Home medication list is obtained from the patient. - Exposure Risk Screening:: None identified. Vital Signs: 09/11 05:31 BP 137 / 71; Pulse 121; Resp 20; Temp 96.3(T); Pulse Ox 100% on R/A; Weight 58.51 kg / kmg1 128.99 lbs; Height 5 ft. 3 in. (160.02 cm); 05:50 Pulse 108 MON; Pulse Ox 99% ; jc4 07:18 BP 130 / 70 (auto/); jc4 07:32 Pulse 90 MON; Pulse Ox 98% ; jc4 07:33 BP 120 / 58 (auto/); jc4 07:58 BP 123 / 59; Pulse 85; Resp 20; Temp 98.6(TE); Pulse Ox 98% on R/A; Pain 4/10; jc4 08:03 BP 112 / 57 (auto/); jc4 08:04 Pulse 86 MON; Pulse Ox 97% ; jc4 08:17 Pulse 90 MON; Pulse Ox 96% ; jc4 08:18 BP 117 / 56 (auto/); jc4 08:32 Pulse 92 MON; Pulse Ox 94% ; jc4 08:33 BP 119 / 56 (auto/); jc4 08:48 BP 118 / 59 (auto/); jc4 08:48 Pulse 94 MON; Pulse Ox 93% ; jc4 08:51 BP 118 / 59; Pulse 93; Resp 20; Pulse Ox 94% on R/A; Pain 0/10; jc4 09:03 BP 123 / 60 (auto/); jc4 09:03 Pulse 94 MON; Pulse Ox 93% ; jc4 09:18 BP 133 / 59 (auto/); jc4 09:18 Pulse 94 MON; Pulse Ox 92% ; jc4 09:33 BP 113 / 56 (auto/); jc4 09:35 Pulse 92 MON; Pulse Ox 93% ; jc4 09:48 BP 115 / 59 (auto/); jc4 09:48 Pulse 94 MON; Pulse Ox 94% ; jc4 10:20 BP 122 / 59; Pulse 90; Resp 20; Temp 98.5(TE); Pulse Ox 97% on R/A; Pain 0/10; jc4 05:31 Body Mass Index 22.85 (58.51 kg, 160.02 cm) kmg1 MDM: 06:19 IV Saline Lock ordered. mm11 06:19 Undress patient appropriately for examination ordered. mm11 06:19 Amylase Ordered. EDMS 06:19 Basic Metabolic Profile Ordered. EDMS 06:19 CBC with Diff Ordered. EDMS 06:19 Cardiac Injury Profile Ordered. EDMS 06:19 Lipase Ordered. EDMS 06:19 Liver Profile Ordered. EDMS 06:19 Troponin Ordered. EDMS 06:20 NOTHING BY MOUTH+DIET ordered. EDMS 06:48 Basic Metabolic Profile Reviewed. ml 06:48 CBC with Diff Reviewed. ml 06:48 Lipase Reviewed. ml 06:48 Liver Profile Reviewed. ml 06:48 Amylase Reviewed. ml 06:48 Cardiac Injury Profile Reviewed. ml 06:48 Troponin Reviewed. ml 06:49 NS 0.9% 1000 ml IV at bolus once ordered. ml 06:49 Ondansetron 4 mg IVP once ordered. ml 07:06 Tanyard Worker/Pulse Ox/q 15 min VS ordered. ml 07:06 Rhythm Strip to chart ordered. ml 07:06 diphenhydrAMINE 50 mg IVP once ordered. ml 07:06 Solu-MEDROL 125 mg IVP once ordered. ml 07:06 Famotidine 20 mg IVPB once over 30 mins; dilute in 50mL of NS ordered. ml 07:53 Financial registration complete. lg 09:33 [facility] [place] Agreement was scanned into [employer] and attached to record. lg 12:15 Trend VS was scanned into [employer] and attached to record. gb 13:42 T-Sheet-- Draft Copy was scanned into [employer] and attached to record. [facility] Administered Medications: 07:05 Drug: NS 0.9% 1000 ml [sodium chloride 0.9 % intravenous solution] Route: IV; Rate: kmg1 bolus; Site: right antecubital; 08:51 Follow up: BP 118 / 59; Pulse 93 bpm; Resp 20 bpm; Pulse Ox 94% RA; Pain 0/10 Adult; IV jc4 Status: Completed infusion; IV Intake: 1000ml 07:09 Not Given (Patient denies nauseaa): Ondansetron 4 mg IVP once kmg1 07:24 Drug: Famotidine 20 mg [famotidine 10 mg/mL intravenous solution] Route: IVPB; Infused kmg1 Over: 30 mins; Site: right antecubital; 07:59 Follow up: IV Status: Completed infusion; IV Intake: 50ml jc4 07:25 Drug: diphenhydrAMINE 50 mg [diphenhydramine 50 mg/mL injection solution (1 mL)] Route: kmg1 IVP; Site: right antecubital; 07:25 Drug: Solu-MEDROL 125 mg [Solu-Medrol 500 mg intravenous solution (125 mg)] Route: IVP; kmg1 Site: right antecubital; Signatures: Dispatcher [employer] Micaela Pal MD MD Ian Bryson RN RN cz Aspen Garcia, Reg Reg gb Sandeep Meyer, Reg Reg lg Cesar Pinon, DO mm11 Mar Reddy RN RN jc4 Dayna Strange Kelly RN kmg1 The chart was reviewed and I authenticate all verbal orders and agree with the evaluation and treatment provided.Corrections: (The following items were deleted from the chart) 05:36 05:30 PSHx: breast removal and lymph gland removal; madan hager Attachments: 09:33 [facility] Payment Agreement lg 13:42 T-Sheet-- Draft Copy [facility] Chart Complete MTDD
--- NOTE | 2016-09-13 12:41 | EDDOCDS ---
Physician Documentation [facility] Name: Estrellita Ferrari Age: 61 yrs Sex: Female : 1955 Arrival Date: 09/11/2016 Time: 05:21 Bed 13 Private MD: Disposition: 09/11/16 10:03 Discharged to Home/Self Care. Impression: Vomiting, Diarrhea, unspecified, Urticaria, unspecified. - Condition is Stable. - Discharge Instructions: Diarrhea, Hives, Nausea and Vomiting. - Prescriptions for Benadryl 25 mg Oral Capsule - take 1 capsule by ORAL route every 8 hours As needed; 20 tablet. Pepcid 20 mg Oral Tablet - take 1 tablet by ORAL route every 12 hours for 5 days; 10 tablet. Prednisone 20 mg Oral Tablet - take 3 tablet by ORAL route once daily for 5 days; 15 tablet. ZOFRAN ODT 4 mg - dissolve 1 tablet by ORAL route 4 times per day As needed do not chew, do not swallow whole; 10 tablet. - Medication Reconciliation, Local Pharmacy Hours form. - Follow up: Charlee Glass MD; When: 1 - 2 days. - Problem is new. - Symptoms have improved. - Notes: follow up with both of your doctors. return if worsening symptoms Historical: - Allergies: Flagyl; PENICILLINS; SULFA (SULFONAMIDES); breast removal lymph gland removal left side; - Home Meds: 1. Glucotrol Oral once daily 2. Invokana oral 1 tab once daily 3. metformin 500 mg Oral tab 4 tab daily 4. Vitamin C 500 mg Oral tab daily 5. Vitamin E 500mg Oral once daily 6. gabapentin 100 mg Oral tab three times a day 7. cholesterol med - PMHx: Cataracts; Diabetes - NIDDM: controlled; patent ductus; breast cancer; - PSHx: Cholecystectomy; Cataract Surgery- Bilateral; breast and lymph gland removal; - Social history: Smoking status: Patient states former smoker of tobacco. No barriers to communication noted, The patient speaks fluent Jamaican, Speaks appropriately for age. - Family history: No immediate family members are acutely ill. - : The pt / caregiver states he / she is not on anticoagulants. Home medication list is obtained from the patient. - Exposure Risk Screening:: None identified. Vital Signs: 09/11 05:31 BP 137 / 71; Pulse 121; Resp 20; Temp 96.3(T); Pulse Ox 100% on R/A; Weight 58.51 kg / kmg1 128.99 lbs; Height 5 ft. 3 in. (160.02 cm); 05:50 Pulse 108 MON; Pulse Ox 99% ; jc4 07:18 BP 130 / 70 (auto/); jc4 07:32 Pulse 90 MON; Pulse Ox 98% ; jc4 07:33 BP 120 / 58 (auto/); jc4 07:58 BP 123 / 59; Pulse 85; Resp 20; Temp 98.6(TE); Pulse Ox 98% on R/A; Pain 4/10; jc4 08:03 BP 112 / 57 (auto/); jc4 08:04 Pulse 86 MON; Pulse Ox 97% ; jc4 08:17 Pulse 90 MON; Pulse Ox 96% ; jc4 08:18 BP 117 / 56 (auto/); jc4 08:32 Pulse 92 MON; Pulse Ox 94% ; jc4 08:33 BP 119 / 56 (auto/); jc4 08:48 BP 118 / 59 (auto/); jc4 08:48 Pulse 94 MON; Pulse Ox 93% ; jc4 08:51 BP 118 / 59; Pulse 93; Resp 20; Pulse Ox 94% on R/A; Pain 0/10; jc4 09:03 BP 123 / 60 (auto/); jc4 09:03 Pulse 94 MON; Pulse Ox 93% ; jc4 09:18 BP 133 / 59 (auto/); jc4 09:18 Pulse 94 MON; Pulse Ox 92% ; jc4 09:33 BP 113 / 56 (auto/); jc4 09:35 Pulse 92 MON; Pulse Ox 93% ; jc4 09:48 BP 115 / 59 (auto/); jc4 09:48 Pulse 94 MON; Pulse Ox 94% ; jc4 10:20 BP 122 / 59; Pulse 90; Resp 20; Temp 98.5(TE); Pulse Ox 97% on R/A; Pain 0/10; jc4 05:31 Body Mass Index 22.85 (58.51 kg, 160.02 cm) kmg1 MDM: 06:19 IV Saline Lock ordered. mm11 06:19 Undress patient appropriately for examination ordered. mm11 06:19 Amylase Ordered. EDMS 06:19 Basic Metabolic Profile Ordered. EDMS 06:19 CBC with Diff Ordered. EDMS 06:19 Cardiac Injury Profile Ordered. EDMS 06:19 Lipase Ordered. EDMS 06:19 Liver Profile Ordered. EDMS 06:19 Troponin Ordered. EDMS 06:20 NOTHING BY MOUTH+DIET ordered. EDMS 06:48 Basic Metabolic Profile Reviewed. ml 06:48 CBC with Diff Reviewed. ml 06:48 Lipase Reviewed. ml 06:48 Liver Profile Reviewed. ml 06:48 Amylase Reviewed. ml 06:48 Cardiac Injury Profile Reviewed. ml 06:48 Troponin Reviewed. ml 06:49 NS 0.9% 1000 ml IV at bolus once ordered. ml 06:49 Ondansetron 4 mg IVP once ordered. ml 07:06 Product Design Engineer/Pulse Ox/q 15 min VS ordered. ml 07:06 Rhythm Strip to chart ordered. ml 07:06 diphenhydrAMINE 50 mg IVP once ordered. ml 07:06 Solu-MEDROL 125 mg IVP once ordered. ml 07:06 Famotidine 20 mg IVPB once over 30 mins; dilute in 50mL of NS ordered. ml 07:53 Financial registration complete. lg 09:33 [facility] Payment Agreement was scanned into [employer] and attached to record. lg 12:15 Trend VS was scanned into [employer] and attached to record. gb 13:42 T-Sheet-- Draft Copy was scanned into [employer] and attached to record. [facility] Administered Medications: 07:05 Drug: NS 0.9% 1000 ml [sodium chloride 0.9 % intravenous solution] Route: IV; Rate: kmg1 bolus; Site: right antecubital; 08:51 Follow up: BP 118 / 59; Pulse 93 bpm; Resp 20 bpm; Pulse Ox 94% RA; Pain 0/10 Adult; IV jc4 Status: Completed infusion; IV Intake: 1000ml 07:09 Not Given (Patient denies nauseaa): Ondansetron 4 mg IVP once kmg1 07:24 Drug: Famotidine 20 mg [famotidine 10 mg/mL intravenous solution] Route: IVPB; Infused kmg1 Over: 30 mins; Site: right antecubital; 07:59 Follow up: IV Status: Completed infusion; IV Intake: 50ml jc4 07:25 Drug: diphenhydrAMINE 50 mg [diphenhydramine 50 mg/mL injection solution (1 mL)] Route: kmg1 IVP; Site: right antecubital; 07:25 Drug: Solu-MEDROL 125 mg [Solu-Medrol 500 mg intravenous solution (125 mg)] Route: IVP; kmg1 Site: right antecubital; Signatures: Dispatcher [employer] Micaela Pal MD MD Ian Bryson RN RN cz Aspen Garcia, Reg Reg gb Sandeep Meyer, Reg Reg lg Cesar Pinon, DO mm11 Mar Reddy RN RN jc4 Dayna Strange Kelly RN kmg1 The chart was reviewed and I authenticate all verbal orders and agree with the evaluation and treatment provided.Corrections: (The following items were deleted from the chart) 05:36 05:30 PSHx: breast removal and lymph gland removal; madan hager Attachments: 09:33 [facility] Payment Agreement lg 13:42 T-Sheet-- Draft Copy [facility] Chart Complete MTDD
== END 2016-09-11 10:21 | disposition home or self-care (01) ==
LOC: M ED 05:21
DX: R11.10 Vomiting, unspecified (principal); L50.9 Urticaria, unspecified; R19.7 Diarrhea, unspecified; E11.9 Type 2 diabetes mellitus without complications; Q25.0 Patent ductus arteriosus; Z85.3 Personal history of malignant neoplasm of breast; H26.9 Unspecified cataract; Z87.891 Personal history of nicotine dependence; Z79.84 Long term (current) use of oral hypoglycemic drugs; Z79.899 Other long term (current) drug therapy; Z88.0 Allergy status to penicillin; Z88.2 Allergy status to sulfonamides; Z88.8 Allergy status to other drugs, medicaments and biological substances
CPT/HCPCS: 36415; 80048; 80076; 82150; 82550; 82553; 83690; 85025; 93041; 96361; 96365; 96375; 99284; J1200; J2930

== ENCOUNTER → 2016-09-14 | Outpatient (CLI) | payer MEDICAID ==
--- NOTE | 2016-09-15 15:06 | ECHO ---
DATE OF PROCEDURE: 09/14/2016 REFERRING PHYSICIAN: Alla Andujar MD INDICATION: Chemotherapy drugs that may affect the heart. HEIGHT: 63 inches WEIGHT: 128 pounds MEASUREMENTS: Left atrium: 3.4 cm Ventricular septum: 0.93 cm Posterior wall: 0.93 cm Left ventricle diastole: 3.8 cm Aortic root: 2.5 cm LVOT: 1.8 cm Inferior vena cava: 2.2 cm (more than 50% respiratory variation). DOPPLER MEASUREMENTS: Aortic valve velocity: 172 cm/s LVOT velocity: 70.7 cm/s LVOT VTI: 17.0 cm Mild mitral regurgitation. Mitral E velocity: 116 cm/s Mitral A velocicity: 76.5 cm/s Mitral deceleration time: 144 ms Very mild tricuspid regurgitation. Estimated right ventricle systolic pressure 35 mmHg assuming a right atrial pressure of 5 mmHg. DESCRIPTION: Rhythm was sinus. Image quality was fair. No pericardial effusion. This is a 2D, M-mode, color flow Doppler and pulse wave Doppler examination that included mitral annular tissue Doppler. CONCLUSIONS: 1. Normal left ventricle internal dimensions and wall thickness. Normal left ventricle (LV) wall motion and wall thickening. Normal LV systolic function. Left ventricular ejection fraction (LVEF) 65% by visual estimate. 2. Mild aortic valve sclerosis of a three-cuspid aortic valve. 3. Mild mitral annular calcification. Mild mitral regurgitation. 4. Suggestive of mild elevation of estimated right ventricle systolic pressure. 5. No pericardial effusion.
== END ==
LOC: M CARPUL 10:24
PROVIDERS: ATTEND Internal Medicine Hematology & Oncology
DX: Z79.899 Other long term (current) drug therapy (principal)

== ENCOUNTER 2016-09-29 09:52 | Outpatient (RCR) | payer MEDICAID | END 2016-10-04 | LOC: M PT 09:52 | PROVIDERS: ATTEND Internal Medicine Hematology & Oncology | DX: Z51.89 Encounter for other specified aftercare (principal); I89.0 Lymphedema, not elsewhere classified; C50.912 Malignant neoplasm of unspecified site of left female breast; G62.9 Polyneuropathy, unspecified; M54.6 Pain in thoracic spine ==

== ENCOUNTER → 2016-10-04 | Outpatient (CLI) | payer MEDICAID ==
--- NOTE | 2016-10-18 01:49 | ECWPNPC ---
PATIENT NAME: DREW MENJIVAR : 1955 GENDER: FEMALE VISIT DATE: 10/04/2016 DISCHARGE DATE: 10/04/16 1231 VISIT LOCKED DATE TIME: PHYSICIAN: JUANITA NICK RESOURCE: JUANITA NICK REASON FOR APPOINTMENT 1. BACK PAIN HISTORY OF PRESENT ILLNESS NEW PATIENT CONSULT: WHEN DID YOUR PAIN FIRST START? . BRIEFLY DESCRIBE HOW YOUR PAIN STARTED? . HOW DOES YOUR PAIN CHANGE WITH TIME? . DOES YOUR PAIN AWAKEN YOU FROM SLEEP? . HOW MANY HOURS OF SLEEP DO YOU NORMALLY GET? . ANY DIAGNOSTIC TESTING? . FACILITY WHERE TESTS WERE DONE? ____. PAIN TREATMENT TREATMENT YES CANCER HAVE YOU EVER HAD ANY TYPE OF CANCER?NO NO. 61 Y/O FEMALE WITH 6MOS HX OF LOW BACK AND THORACIC BACK PAIN.NOTICED PAIN AFTER FINISHING RADIATION THERAPY FOR LEFT BREAST CANCER 4 MONTHS AGO.CURRENTLY RECIEVING HIRCEPTIN ON A MONTHLY BASIS FOR CHEMOTHERAPY.RATING PAIN VAS 6/10.PAIN IS AGGREVATED WITH INCREASD USE OF ARMS AND WEATHER CHANGE.DESCRIBES PAIN A CONTINUOUS ACHE IN LUMBAR AND THORACIC REGION.RELIEVED SOMEWHAT WITH REST.PAIN IS AGGREVATED BY PROLONGED STANDING OR SITTING. PAIN SCREENING: PATIENT HAS A COMPLAINT OF ACUTE OR CHRONIC PAIN YES FALL RISK SCREENING: SCREENING :NO FALLS IN THE PAST YEAR GUERRA INVENTORY: QUESTIONNAIRE ASSESSEDTBD SCORE VALUE CALCULATED TBD CURRENT MEDICATIONS TAKING VITAMIN C 500 MG TABLET 1 TAB(S) ORALLY DAILY TAKING VITAMIN E 400 UNIT CAPSULE 1 CAP(S) ORALLY DAILY TAKING GLUCOPHAGE 500 MG TABLET 4 TABLETS ORALLY ONCE A DAY TAKING GLUCOTROL 5 MG TABLET 1 TABLET ORALLY ONCE A DAY TAKING LIPITOR 10 MG TABLET 1 TABLET ORALLY ONCE A DAY TAKING CALCIUM 1000 + D 1000-800 MG-UNIT TABLET 1 TABLET ORALLY ONCE A DAY TAKING INVOKANA 100 MG TABLET 1 TABLET ORALLY ONCE A DAY TAKING GABAPENTIN 100 MG CAPSULE 2 ORALLY TID TAKING ATORVASTATIN CALCIUM 10 MG TABLET 1 TABLET ORALLY ONCE A DAY TAKING TURMERIC 500 MG CAPSULE ORALLY NOT-TAKING ESTRACE 0.5 MG TABLET 1 TABLET ORALLY DAILY NOT-TAKING CINNAMON OTC CAPSULE 1 CAP(S) ORALLY DAILY MEDICATION LIST REVIEWED AND RECONCILED WITH THE PATIENT PAST MEDICAL HISTORY NIDDM HYPERLIPIDEMIA BREAST CANCER ALLERGIES FLAGYL: SWELLING: ALLERGY FOSAMAX: SENSATION OF THROAT SWELLING: ALLERGY PENICILLIN (FOR ALLERGIES USE ONLY): SWELLING: ALLERGY SULFA (FOR ALLERGY USE ONLY): SWELLING: ALLERGY SURGICAL HISTORY CARDIAC 195 LEFT MASTECTOMY 2016 LEFT BREAST IMPLANT 1979EFT BREAST IMPLANT REMOVED HYSTERECTOMY 1979 [facility] PORT RIGHT 2016 SOCIAL HISTORY GENERAL: PAIN CLINIC PFS, CLERGY, PUBLIC HEALTH REFERRALS PFS REFERRAL NEEDED?NO NO ADVANCE DIRECTIVES CLERGY REFERRAL NEEDED?NO PUBLIC HEALTH REFERRAL NEEDED?NO WAS THE PROVIDER NOTIFIED OF ANY PERTINENT INFO?NO PSYCHOLOGICAL HX TREATMENTNO ALCOHOL OR DRUG TREATMENTNO PATIENT: ____. ADVANCED DIRECTIVES HEALTH CARE PROXY?NO POWER OF SLAB CONDITIONER SUPERVISOR?NO SCREENING/ASSESSMENT TOOL NUTRITION ASSESSEDYES ARE YOU ON ANY SPECIAL DIET?NO ANY SIGNIFICANT CHANGES RELATED TO EATING, WEIGHT GAIN/LOSS, OR BOWEL HABITS?NO IF YES, IS YOUR PRIMARY CARE PROVIDER AWARE OF THIS?NO SPECIAL NEEDS LEVEL OF CARE? SELF, GLASSES: NO, CONTACTS: NO, HEARING AIDS: NO, DENTURES: NO, WALKER: NO, CANE: NO, WHEELCHAIR: NO, REFERRALS NEEDED: NO. TOBACCO USE ARE YOU A:NONSMOKER CAFFEINE CAFFEINE USE?NO RECREATIONAL DRUG USE DRUG USE?NO REVIEW OF SYSTEMS CONSTITUTIONAL: RECENT ILLNESS DENIES . ANY CHANGE IN YOUR MEDICAL CONDITION? NO . CHILLS NO . FEVER NO, DENIES . WEIGHT LOSS DENIES . INFECTION: DO YOU HAVE NEW INFECTIONS? NO . DO YOU HAVE HISTORY OF MRSA? NO . MUSCULOSKELETAL: ANY NEW PATTERNS OF PAIN OR NUMBNESS? NO . SYTEMIC LUPUS NO . JOINT PAIN DENIES . JOINT STIFFNESS DENIES . GASTROENTEROLOGY: BOWEL INCONTINENCE DENIES . ANY NEW CHANGE IN BOWEL CONTROL? NO . BARRETTS ESOPHAGUS NO . CIRRHOSIS NO . HEPATITIS NO . LIVER FAILURE NO . ACID REFLUX NO . BLOOD IN STOOL DENIES . UNEXPLAINED WEIGHT LOSS NO . GENITOURINARY: ANY NEW CHANGE IN BLADDER CONTROL? NO . IS THERE A CHANCE YOU COULD BE ? NO . HEMATOLOGY/LYMPH: DENIES . BLEEDING DISORDER DENIES . DO YOU TAKE ANY BLOOD THINNERS? (FOR EXAMPLE- COUMADIN, PLAVIX, AGGRENOX, PLATEL, PRADAXA, OR XARELTO) NO . WHEN WAS YOUR LAST DOSE? DATE: TIME: . LOW PLATELET COUNT NO . SICKLE CELL DISEASE NO . VON WILLIEBRANDS NO . FACTOR V LEIDEN NO . THALLASEMIA NO . ANEMIA NO . EASY BRUISING NO . NEUROLOGY: HAVE YOU FALLEN IN THE PAST 6 MONTHS? NO . ANY NEW EXTREMITY NUMBNESS OR WEAKNESS? NO . HEAD INJURY NO . DEMENTIA NO . CEREBRAL PALSY NO . MULTIPLE SCLEROSIS NO . DIZZINESS NO . HEADACHE NO, DENIES . SEIZURES DENIES . STROKES NO . VERTIGO NO . CARDIOLOGY: DO YOU HAVE A PACEMAKER OR DEFIBRILLATOR? NO . ANGINA NO . HEART ATTACK NO . HEART SURGERY NO . CONGESTIVE HEART FAILURE/FLUID OVERLOAD NO . CHEST PAIN NO, DENIES . HIGH BLOOD PRESSURE NO . IRREGULAR HEART BEAT NO . SHORTNESS OF BREATH DENIES . RESPIRATORY: HAVE YOU BEEN SICK IN THE PAST WEEK? NO . FEVER NO . FLU LIKE SYMPTOMS? NO . CPAP NO . BYPAP NO . ASTHMA NO . EMPHYSEMA NO . CHRONIC LUNG DISEASES NO . SHORTNESS OF BREATH ON EXERTION NO . DO YOU USE ANY TYPE OF TOBACCO (SMOKE, SMOKELESS, CHEW)? NO . COUGH NO, DENIES . SHORTNESS OF BREATH DENIES . SNORING NO . INTEGUMENTARY: DO YOU HAVE ANY RASHES OR OPEN SORES? NO . ALLERGIC/IMMUNO: ARE YOU ALLERGIC TO SHELLFISH OR IV DYE? NO . ANY NEW ALLERGIES? NO . PSYCHIATRIC: DO YOU HAVE THOUGHTS OF HURTING YOURSELF OR SOMEONE ELSE? NO . ARE YOU ABUSED, NEGLECTED, OR IN AN UNSAFE ENVIRONMENT? NO . ENDOCRINOLOGY: THYROID DISEASE DENIES . ARE YOU DIABETIC? NO . DIABETES DENIES . THYROID DISORDER NO . OTHER: DO YOU NEED ANY PRESCRIPTIONS? NO . IF YES, PLEASE LIST: ____ . ANY NEW PROBLEMS WITH YOUR MEDICATIONS? NO . WHEN DID YOU LAST EAT? ____ . WHEN DID YOU LAST DRINK? ____ . WHAT DID YOU LAST DRINK? ____ . NAME OF PERSON DRIVING YOU HOME? ____ . DO YOU HAVE ANY OTHER QUESTIONS OR CONCERNS NO . HEENT: CHANGE IN VISION DENIES . LOSS OF HEARING DENIES . TROUBLE SWALLOWING DENIES . PSYCHOLOGY: ANXIETY DENIES . DEPRESSION DENIES . UROLOGY: URINARY INCONTINENCE DENIES . BLOOD IN URINE DENIES . REVIEWED BY: PROVIDER: JUANITA YOUNG . EXAMINATION GENERAL EXAMINATION: HEENT:HEAD:, NORMOCEPHALIC, EYES:, EYES NORMAL, NOSE:, NOSE CLEAR, THROAT: NORMAL. LUNGS:LUNG SOUNDS ARE CLEAR. HEART:HEART RATE REGULAR. ABDOMEN:SOFT AND NOT TENDER, NON-DISTENDED. MUSCULOSKELETAL:*. LUMBAR SACRAL SPINEMUSCLE STRENGTH TESTING 5/5 BILATERAL LOWER EXTREMITIES. PALPATION: + FOR PAIN OVER L/S SPINE. +FOR PAIN OVER L/S PARSPINALS. THORACIC SPINEPOSITIVE FOR PAIN WITH PALPATION OF THORACIC SPINE. POSITIVE FOR PAIN WITH PALPATION OF THORACIC PARASPINAL. CERVICALNEGATIVE FOR PAIN WITH PALPATION OF CERVICAL SPINE. NEGATIVE FOR PAIN WITH PALPATION OF CERVICAL PARASPINALS. NEGATIVE FOR PAIN WITH PALPATION OF TRAPEZIUS BILAT. SKIN:NORMAL, NO RASH. NEUROLOGIC EXAM:ALERT AND ORIENTED X 3, DTRS 1-2+ IN ALL 4 EXTREMITIES, DENIES UPPER EXTREMETIES SENSORY LOSS, DENIES LOWER EXTREMETIES SENSORY LOSS. DIAGNOSTIC:MRI THORACIC AND LUMBAR WITH AND WITHOUT CONTRAST 08-23-16-REVIEWED. ASSESSMENTS PAIN IN THORACIC SPINE - M54.6 (PRIMARY) OSTEOARTHRITIS OF LUMBAR SPINE, UNSPECIFIED SPINAL OSTEOARTHRITIS COMPLICATION STATUS - M47.816 MALIGNANT NEOPLASM OF LEFT FEMALE BREAST, UNSPECIFIED SITE OF BREAST - C50.912 TREATMENT PAIN IN THORACIC SPINE START MELOXICAM TABLET, 7.5 MG, 1 TABLET, ORALLY, BID, 30 DAY(S), 60 TABLET, REFILLS 2 [facility]:BREAST CA W THORACIC BACK PAIN AND LBP OTHERS CLINICAL NOTES:. PROCEDURE CODES FA211 ESTABILISHED PATIENT [facility] FACILITY CHARGE FOLLOW UP 6 WEEKS ELECTRONICALLY SIGNED BY HANNAH BENAVIDEZ ON 10/17/2016 AT 06:10 PM EST DISCLAIMER : THIS IS A VISIT SUMMARY EXTRACTED FROM THE [employer] CHART. IT IS NOT A COPY OF THE [employer] PROGRESS NOTE. MTDD
== END ==
LOC: M PAIN 11:20
PROVIDERS: ATTEND Nurse Practitioner Family
DX: G89.29 Other chronic pain (principal); M54.6 Pain in thoracic spine; M47.816 Spondylosis without myelopathy or radiculopathy, lumbar region; C50.912 Malignant neoplasm of unspecified site of left female breast; E11.9 Type 2 diabetes mellitus without complications; E78.5 Hyperlipidemia, unspecified; Z88.8 Allergy status to other drugs, medicaments and biological substances; Z88.0 Allergy status to penicillin; Z88.2 Allergy status to sulfonamides; Z79.84 Long term (current) use of oral hypoglycemic drugs; Z79.899 Other long term (current) drug therapy

== ENCOUNTER 2016-10-07 10:00 | Outpatient (RCR) | payer MEDICAID ==
[2016-11-04] MEDS ORDERED: FAMO1TAB25 PO (09:35)
[2016-11-04] MEDS ORDERED: PRED20TA PO (09:35)
[2016-11-04] MEDS ORDERED: BENA25TA9 PO (09:35)
[2016-11-04] MEDS ORDERED: MELO7.5T6 PO (09:35)
[2016-11-04] MEDS ORDERED: TURM500C3 PO (09:36)
[2016-11-04] MEDS ORDERED: HERC440I2 IV (09:56)
== END 2016-11-01 ==
LOC: M PT 10:00
PROVIDERS: ATTEND Internal Medicine Hematology & Oncology
DX: Z51.89 Encounter for other specified aftercare (principal); G62.9 Polyneuropathy, unspecified; I89.0 Lymphedema, not elsewhere classified; C50.212 Malignant neoplasm of upper-inner quadrant of left female breast

== ENCOUNTER 2016-10-11 03:23 | Emergency (ER) | payer MEDICAID ==
[2016-10-11] MEDS ORDERED: diphenhydrAMINE INJ 50MG/ML VIAL (J1200) As Ordered ONE (04:00)
[2016-10-11] MEDS ORDERED: dexameTHASONE 20 MG/5 ML VIAL (J1100) As Ordered ONE (04:00)
--- NOTE | 2016-10-11 05:09 | EDDOCDS ---
Physician Documentation [facility] Name: Estrellita Ferrari Age: 61 yrs Sex: Female : 1955 Arrival Date: 10/11/2016 Time: 03:23 Bed 4 Private MD: Disposition: 10/11/16 04:55 Discharged to Home/Self Care. Impression: Allergy status to unspecified drugs, medicaments and biological substances status. - Condition is Stable. - Prescriptions for Prednisone 20 mg Oral Tablet - take 3 tablet by ORAL route once daily for 5 days; 15 tablet. - Medication Reconciliation, Local Pharmacy Hours form. - Follow up: Private Physician; When: Call to arrange an appointment; Reason: Recheck today's complaints. - Problem is an ongoing problem. - Symptoms have improved. Historical: - Allergies: Flagyl; PENICILLINS; SULFA (SULFONAMIDES); - Home Meds: 1. atorvastatin 20 mg oral tab 1 tab once daily 2. gabapentin 200mg Oral tab three times a day 3. Glucotrol Oral once daily 4. Invokana oral 1 tab once daily 5. metformin 500 mg Oral tab 4 tab daily 6. Vitamin C 500 mg Oral tab daily 7. Vitamin E 500mg Oral once daily 8. meloxicam 7.5 mg oral tab 1 tab twice a day 9. herpaceptin (Chemo) - PMHx: breast cancer; Cataracts; Diabetes - NIDDM: controlled; patent ductus; High Cholesterol; - PSHx: Cataract Surgery- Bilateral; Appendectomy; Hysterectomy; Mastectomy- Left; - Social history: Smoking status: Patient states former smoker of tobacco. No barriers to communication noted, The patient speaks fluent Albanian, Speaks appropriately for age, Preferred Language: Albanian. - Family history: Not pertinent. - : The pt / caregiver states he / she is not on anticoagulants. Home medication list is obtained from the patient. - Exposure Risk Screening:: None identified. Vital Signs: 10/11 03:28 BP 144 / 67; Pulse 98; Resp 20; Temp 100.0(TE); Pulse Ox 98% on R/A; Weight 58.51 kg / lf1 128.99 lbs (R); Height 5 ft. 3 in. (160.02 cm); Pain 0/10; 03:58 BP 124 / 53 (auto/); mv5 03:58 Pulse 80 MON; Pulse Ox 100% ; mv5 04:13 BP 116 / 55 (auto/); mv5 04:13 Pulse 80 MON; Pulse Ox 99% ; mv5 04:28 BP 105 / 56 (auto/); mv5 04:28 Pulse 78 MON; Pulse Ox 100% ; mv5 04:58 BP 103 / 58; Pulse 83; Resp 18; Temp 98.6(TE); Pulse Ox 97% on R/A; Pain 0/10; dane 03:28 Body Mass Index 22.85 (58.51 kg, 160.02 cm) lf1 MDM: 03:43 IV Saline Lock ordered. cs11 03:43 diphenhydrAMINE 25 mg IVP once ordered. cs11 03:43 Dexamethasone 15 mg IV at bolus once ordered. cs11 04:48 Financial registration complete. pm4 04:54 [facility] Payment Agreement was scanned into [employer] and attached to record. pm4 Administered Medications: 04:10 Drug: diphenhydrAMINE 25 mg [diphenhydramine 50 mg/mL injection solution (0.5 mL)] mv5 Route: IVP; Site: right antecubital; 05:08 Follow up: Response: No Adverse Reaction mv5 04:10 Drug: Dexamethasone 15 mg [dexamethasone 4 mg/mL injection solution] Route: IV; Rate: mv5 bolus; Site: right antecubital; 05:07 Follow up: Response: No Adverse Reaction; IV Status: Completed infusion mv5 Signatures: Joclein Gutierrez,RN RN lf1 Jose Armando Elizabeth DO DO cs11 Stephane Ortiz, Reg Reg pm4 Stephie ClarkRN RN mv5 The chart was reviewed and I authenticate all verbal orders and agree with the evaluation and treatment provided.Attachments: 04:54 [facility] Payment Agreement pm4 MTDD
--- NOTE | 2016-10-11 05:09 | EDDOCDS ---
Nurse's Notes [facility] Name: Estrellita Ferrari Age: 61 yrs Sex: Female : 1955 Arrival Date: 10/11/2016 Time: 03:23 Bed 4 Private MD: Diagnosis: Allergy status to unspecified drugs, medicaments and biological substances status Presentation: 10/11 03:28 Presenting complaint: Patient states: Pt. reports she received Herceptin Chemo lf1 treatment in [facility] on September 30, 2016 (3 of 13) of for breast cancer. She reports that she woke up tonight with diarrhea and vomiting, swelling to face arms and diffuse rash to groin, torso and face. Pt. denies shortness of breath. Onset: The symptoms/episode began/occurred suddenly. The patient has a history of a previous allergic reaction. The previous reaction involved swelling. rash and redness. Anaphylaxis evaluation, the patient reports or I have noted the following symptoms which indicate a significant risk of anaphylaxis: no signs or symptoms of anaphylaxis were noted. Adult Sepsis Screening: The patient does not have new or worsening altered mentation. Patient's respiratory rate is less than 22. Systolic blood pressure is greater than 100. Patient has a qSOFA score of 0- Negative Sepsis Screen. Suicide/Homicide risk assessment- the patient denies having any suicidal and/or homicidal ideations and does not present with any other emotional, behavioral or mental health complaints. Status: Patient is not a service desk agent or dependent. Transition of care: patient was not received from another setting of care. 03:28 Acuity: ERICK Level 2 lf1 03:28 Method Of Arrival: Walkin/Carried/Asstd lf1 Triage Assessment: 03:39 General: Appears in no apparent distress, comfortable, Behavior is cooperative. Pain: lf1 Denies pain. HIV screening NA for this visit. The patient is triaged at the bedside. See Assessment in Nurses Notes section of ED record. Neurological: Level of Consciousness is awake, alert. EENT: swelling noted no eyelids. Cardiovascular: Chest pain is denied. Respiratory: Respiratory effort is even, unlabored, Denies shortness of breath. Derm: Rash noted that is red, Swollen area noted on right arm, right hand, left arm and left hand. Historical: - Allergies: Flagyl; PENICILLINS; SULFA (SULFONAMIDES); - Home Meds: 1. atorvastatin 20 mg oral tab 1 tab once daily 2. gabapentin 200mg Oral tab three times a day 3. Glucotrol Oral once daily 4. Invokana oral 1 tab once daily 5. metformin 500 mg Oral tab 4 tab daily 6. Vitamin C 500 mg Oral tab daily 7. Vitamin E 500mg Oral once daily 8. meloxicam 7.5 mg oral tab 1 tab twice a day 9. herpaceptin (Chemo) - PMHx: breast cancer; Cataracts; Diabetes - NIDDM: controlled; patent ductus; High Cholesterol; - PSHx: Cataract Surgery- Bilateral; Appendectomy; Hysterectomy; Mastectomy- Left; - Social history: Smoking status: Patient states former smoker of tobacco. No barriers to communication noted, The patient speaks fluent Japanese, Speaks appropriately for age, Preferred Language: Japanese. - Family history: Not pertinent. - : The pt / caregiver states he / she is not on anticoagulants. Home medication list is obtained from the patient. - Exposure Risk Screening:: None identified. Screenin:10 Screening information is obtained from the patient. Fall risk: No risks identified. mv5 Assistance ADL's: requires no assistance with activities of daily living. Abuse/DV Screen: The patient / caregiver reports he/she is: not in a situation that causes fear, pain or injury. Nutritional screening: No deficits noted. Advance Directives: There is no active DNR order. home support is adequate. Assessment: 04:10 General: Appears in no apparent distress, well nourished, Behavior is appropriate for mv5 age, cooperative, pleasant, Appears. Pain: Denies pain. Neurological: Level of Consciousness is awake, alert, Oriented to person, place, time. Cardiovascular: Capillary refill < 3 seconds Heart tones S1 S2 present Rhythm is sinus rhythm. Respiratory: Airway is patent Respiratory effort is even, unlabored, Respiratory pattern is regular, symmetrical, Breath sounds are clear bilaterally. Derm: Skin is flushed, Rash noted that is itchy, red. 04:36 General: Appears in no apparent distress, Behavior is cooperative, pleasant, Appears. mv5 General: Pt resting with eyes closed, reports some drowsiness from administered meds.. Pain: Denies pain. Neurological: Level of Consciousness is awake, alert, Oriented to person, place, time. Cardiovascular: Rhythm is sinus rhythm No ectopy. Respiratory: Airway is patent Respiratory effort is even, unlabored, Respiratory pattern is regular, symmetrical. Derm: Skin is flushed, mild improvement of reddened rash. 05:05 General: Appears in no apparent distress, Appears. Pain: Denies pain. Neurological: mv5 Level of Consciousness is awake, alert, Oriented to person, place, time. Cardiovascular: Rhythm is sinus rhythm No ectopy. Respiratory: Airway is patent Respiratory effort is even, unlabored, Respiratory pattern is regular, symmetrical. Derm: Rash noted that is improving redness and itching. Vital Signs: 03:28 BP 144 / 67; Pulse 98; Resp 20; Temp 100.0(TE); Pulse Ox 98% on R/A; Weight 58.51 kg lf1 (R); Height 5 ft. 3 in. (160.02 cm); Pain 0/10; 03:58 BP 124 / 53 (auto/); mv5 03:58 Pulse 80 MON; Pulse Ox 100% ; mv5 04:13 BP 116 / 55 (auto/); mv5 04:13 Pulse 80 MON; Pulse Ox 99% ; mv5 04:28 BP 105 / 56 (auto/); mv5 04:28 Pulse 78 MON; Pulse Ox 100% ; mv5 04:58 BP 103 / 58; Pulse 83; Resp 18; Temp 98.6(TE); Pulse Ox 97% on R/A; Pain 0/10; dane 03:28 Body Mass Index 22.85 (58.51 kg, 160.02 cm) [facility] Vitals: 03:28 Log In Time: October 11, 2016 at 03:24. 1 ED Course: 03:24 Patient visited by Blanche Duran Reg. hs2 03:24 Patient moved to Waiting hs2 03:26 Patient moved to Triage 2 lf1 03:33 Triage Initiated lf1 03:40 Stephie Clark,RN is Primary Nurse. lf1 03:40 Jose Armando Elizabeth DO is Attending Physician. cs11 03:40 Patient moved to 4 lf1 03:41 Patient visited by Jose Armando Elizabeth DO. cs11 04:10 The patient / caregiver is instructed regarding the plan of care and ED course. Cardiac mv5 monitor on. Pulse ox on. NIBP on. 04:10 Inserted saline lock: 20 gauge in right antecubital area and blood collected. The mv5 patient tolerated the procedure well. 04:36 Patient visited by Stephie Clark,JOSE CARLOS. mv5 04:54 [facility] Payment Agreement was scanned into [employer] and attached to record. pm4 04:58 Patient visited by Clair Encarnacion PCA. dane 05:05 Discontinued intact, bleeding controlled, pressure dressing applied, No mv5 redness/swelling at site. No procedures done that require assistance. Administered Medications: 04:10 Drug: diphenhydrAMINE 25 mg [diphenhydramine 50 mg/mL injection solution (0.5 mL)] mv5 Route: IVP; Site: right antecubital; 05:08 Follow up: Response: No Adverse Reaction mv5 04:10 Drug: Dexamethasone 15 mg [dexamethasone 4 mg/mL injection solution] Route: IV; Rate: mv5 bolus; Site: right antecubital; 05:07 Follow up: Response: No Adverse Reaction; IV Status: Completed infusion mv5 Order Results: There are currently no results for this order. Outcome: 04:55 Discharge ordered by Provider. cs11 05:05 Discharge Assessment: Patient awake, alert and oriented x 3. No cognitive and/or mv5 functional deficits noted. Patient verbalized understanding of disposition instructions. patient administered narcotics - no. The following High Risk Discharge criteria are identified: None. Discharged to home. Condition: stable. Discharge instructions given to patient, significant other, Demonstrated understanding of Pt was receptive of discharge instructions/ teaching. No special radiology studies were completed. Property sent home with patient. 05:08 Patient left the ED. mv5 Signatures: Jocelin GutierrezRN RN lf1 Clair Encarnacion PCA [employer] OPERATOR Jose Armando Anaya DO DO cs11 Blanche Duran, Reg Reg hs2 Stephane Ortiz, Reg Reg pm4 Stephie Clark,RN RN mv5 MTDD
--- NOTE | 2016-10-13 06:10 | EDDOCDS ---
Nurse's Notes [facility] Name: Estrellita Ferrari Age: 61 yrs Sex: Female : 1955 Arrival Date: 10/11/2016 Time: 03:23 Bed 4 Private MD: Diagnosis: Allergy status to unspecified drugs, medicaments and biological substances status Presentation: 10/11 03:28 Presenting complaint: Patient states: Pt. reports she received Herceptin Chemo lf1 treatment in [place] on September 30, 2016 (3 of 13) of for breast cancer. She reports that she woke up tonight with diarrhea and vomiting, swelling to face arms and diffuse rash to groin, torso and face. Pt. denies shortness of breath. Onset: The symptoms/episode began/occurred suddenly. The patient has a history of a previous allergic reaction. The previous reaction involved swelling. rash and redness. Anaphylaxis evaluation, the patient reports or I have noted the following symptoms which indicate a significant risk of anaphylaxis: no signs or symptoms of anaphylaxis were noted. Adult Sepsis Screening: The patient does not have new or worsening altered mentation. Patient's respiratory rate is less than 22. Systolic blood pressure is greater than 100. Patient has a qSOFA score of 0- Negative Sepsis Screen. Suicide/Homicide risk assessment- the patient denies having any suicidal and/or homicidal ideations and does not present with any other emotional, behavioral or mental health complaints. Status: Patient is not a statistical machine servicer or dependent. Transition of care: patient was not received from another setting of care. 03:28 Acuity: ERICK Level 2 lf1 03:28 Method Of Arrival: Walkin/Carried/Asstd lf1 Triage Assessment: 03:39 General: Appears in no apparent distress, comfortable, Behavior is cooperative. Pain: lf1 Denies pain. HIV screening NA for this visit. The patient is triaged at the bedside. See Assessment in Nurses Notes section of ED record. Neurological: Level of Consciousness is awake, alert. EENT: swelling noted no eyelids. Cardiovascular: Chest pain is denied. Respiratory: Respiratory effort is even, unlabored, Denies shortness of breath. Derm: Rash noted that is red, Swollen area noted on right arm, right hand, left arm and left hand. Historical: - Allergies: Flagyl; PENICILLINS; SULFA (SULFONAMIDES); - Home Meds: 1. atorvastatin 20 mg oral tab 1 tab once daily 2. gabapentin 200mg Oral tab three times a day 3. Glucotrol Oral once daily 4. Invokana oral 1 tab once daily 5. metformin 500 mg Oral tab 4 tab daily 6. Vitamin C 500 mg Oral tab daily 7. Vitamin E 500mg Oral once daily 8. meloxicam 7.5 mg oral tab 1 tab twice a day 9. herpaceptin (Chemo) - PMHx: breast cancer; Cataracts; Diabetes - NIDDM: controlled; patent ductus; High Cholesterol; - PSHx: Cataract Surgery- Bilateral; Appendectomy; Hysterectomy; Mastectomy- Left; - Social history: Smoking status: Patient states former smoker of tobacco. No barriers to communication noted, The patient speaks fluent Divehi, Speaks appropriately for age, Preferred Language: Divehi. - Family history: Not pertinent. - : The pt / caregiver states he / she is not on anticoagulants. Home medication list is obtained from the patient. - Exposure Risk Screening:: None identified. Screenin:10 Screening information is obtained from the patient. Fall risk: No risks identified. mv5 Assistance ADL's: requires no assistance with activities of daily living. Abuse/DV Screen: The patient / caregiver reports he/she is: not in a situation that causes fear, pain or injury. Nutritional screening: No deficits noted. Advance Directives: There is no active DNR order. home support is adequate. Assessment: 04:10 General: Appears in no apparent distress, well nourished, Behavior is appropriate for mv5 age, cooperative, pleasant, Appears. Pain: Denies pain. Neurological: Level of Consciousness is awake, alert, Oriented to person, place, time. Cardiovascular: Capillary refill < 3 seconds Heart tones S1 S2 present Rhythm is sinus rhythm. Respiratory: Airway is patent Respiratory effort is even, unlabored, Respiratory pattern is regular, symmetrical, Breath sounds are clear bilaterally. Derm: Skin is flushed, Rash noted that is itchy, red. 04:36 General: Appears in no apparent distress, Behavior is cooperative, pleasant, Appears. mv5 General: Pt resting with eyes closed, reports some drowsiness from administered meds.. Pain: Denies pain. Neurological: Level of Consciousness is awake, alert, Oriented to person, place, time. Cardiovascular: Rhythm is sinus rhythm No ectopy. Respiratory: Airway is patent Respiratory effort is even, unlabored, Respiratory pattern is regular, symmetrical. Derm: Skin is flushed, mild improvement of reddened rash. 05:05 General: Appears in no apparent distress, Appears. Pain: Denies pain. Neurological: mv5 Level of Consciousness is awake, alert, Oriented to person, place, time. Cardiovascular: Rhythm is sinus rhythm No ectopy. Respiratory: Airway is patent Respiratory effort is even, unlabored, Respiratory pattern is regular, symmetrical. Derm: Rash noted that is improving redness and itching. Vital Signs: 03:28 BP 144 / 67; Pulse 98; Resp 20; Temp 100.0(TE); Pulse Ox 98% on R/A; Weight 58.51 kg lf1 (R); Height 5 ft. 3 in. (160.02 cm); Pain 0/10; 03:58 BP 124 / 53 (auto/); mv5 03:58 Pulse 80 MON; Pulse Ox 100% ; mv5 04:13 BP 116 / 55 (auto/); mv5 04:13 Pulse 80 MON; Pulse Ox 99% ; mv5 04:28 BP 105 / 56 (auto/); mv5 04:28 Pulse 78 MON; Pulse Ox 100% ; mv5 04:58 BP 103 / 58; Pulse 83; Resp 18; Temp 98.6(TE); Pulse Ox 97% on R/A; Pain 0/10; dane 03:28 Body Mass Index 22.85 (58.51 kg, 160.02 cm) [facility] Vitals: 03:28 Log In Time: October 11, 2016 at 03:24. 1 ED Course: 03:24 Patient visited by Blanche Duran Reg. hs2 03:24 Patient moved to Waiting hs2 03:26 Patient moved to Triage 2 lf1 03:33 Triage Initiated lf1 03:40 Stephie Clark,RN is Primary Nurse. lf1 03:40 Jose Armando Elizabeth DO is Attending Physician. cs11 03:40 Patient moved to 4 lf1 03:41 Patient visited by Jose Armando Elizabeth DO. cs11 04:10 The patient / caregiver is instructed regarding the plan of care and ED course. Cardiac mv5 monitor on. Pulse ox on. NIBP on. 04:10 Inserted saline lock: 20 gauge in right antecubital area and blood collected. The mv5 patient tolerated the procedure well. 04:36 Patient visited by Stephie Clark,JOSE CARLOS. mv5 04:54 [facility] Payment Agreement was scanned into [employer] and attached to record. pm4 04:58 Patient visited by Clair Encarnacion PCA. dane 05:05 Discontinued intact, bleeding controlled, pressure dressing applied, No mv5 redness/swelling at site. No procedures done that require assistance. 15:08 T-Sheet-- Draft Copy was scanned into [employer] and attached to record. gb Administered Medications: 04:10 Drug: diphenhydrAMINE 25 mg [diphenhydramine 50 mg/mL injection solution (0.5 mL)] mv5 Route: IVP; Site: right antecubital; 05:08 Follow up: Response: No Adverse Reaction mv5 04:10 Drug: Dexamethasone 15 mg [dexamethasone 4 mg/mL injection solution] Route: IV; Rate: mv5 bolus; Site: right antecubital; 05:07 Follow up: Response: No Adverse Reaction; IV Status: Completed infusion mv5 Order Results: There are currently no results for this order. Outcome: 04:55 Discharge ordered by Provider. cs11 05:05 Discharge Assessment: Patient awake, alert and oriented x 3. No cognitive and/or mv5 functional deficits noted. Patient verbalized understanding of disposition instructions. patient administered narcotics - no. The following High Risk Discharge criteria are identified: None. Discharged to home. Condition: stable. Discharge instructions given to patient, significant other, Demonstrated understanding of Pt was receptive of discharge instructions/ teaching. No special radiology studies were completed. Property sent home with patient. 05:08 Patient left the ED. mv5 Signatures: Aspen Garcia, Reg Reg gb Jocelin Gutierrez,RN RN lf1 Clair Encarnacion PCA [employer]PER[employer] Jose Armando Anaya DO DO cs11 Blanche Duran, Reg Reg hs2 Stephane Ortiz, Reg Reg pm4 Stephie Clark,JOSE CARLOS RN mv5 Chart Complete MTDD
--- NOTE | 2016-10-13 06:10 | EDDOCDS ---
Physician Documentation [facility] Name: Estrellita Ferrari Age: 61 yrs Sex: Female : 1955 Arrival Date: 10/11/2016 Time: 03:23 Bed 4 Private MD: Disposition: 10/11/16 04:55 Discharged to Home/Self Care. Impression: Allergy status to unspecified drugs, medicaments and biological substances status. - Condition is Stable. - Prescriptions for Prednisone 20 mg Oral Tablet - take 3 tablet by ORAL route once daily for 5 days; 15 tablet. - Medication Reconciliation, Local Pharmacy Hours form. - Follow up: Private Physician; When: Call to arrange an appointment; Reason: Recheck today's complaints. - Problem is an ongoing problem. - Symptoms have improved. Historical: - Allergies: Flagyl; PENICILLINS; SULFA (SULFONAMIDES); - Home Meds: 1. atorvastatin 20 mg oral tab 1 tab once daily 2. gabapentin 200mg Oral tab three times a day 3. Glucotrol Oral once daily 4. Invokana oral 1 tab once daily 5. metformin 500 mg Oral tab 4 tab daily 6. Vitamin C 500 mg Oral tab daily 7. Vitamin E 500mg Oral once daily 8. meloxicam 7.5 mg oral tab 1 tab twice a day 9. herpaceptin (Chemo) - PMHx: breast cancer; Cataracts; Diabetes - NIDDM: controlled; patent ductus; High Cholesterol; - PSHx: Cataract Surgery- Bilateral; Appendectomy; Hysterectomy; Mastectomy- Left; - Social history: Smoking status: Patient states former smoker of tobacco. No barriers to communication noted, The patient speaks fluent [place] Islander, Speaks appropriately for age, Preferred Language: [place]er. - Family history: Not pertinent. - : The pt / caregiver states he / she is not on anticoagulants. Home medication list is obtained from the patient. - Exposure Risk Screening:: None identified. Vital Signs: 10/11 03:28 BP 144 / 67; Pulse 98; Resp 20; Temp 100.0(TE); Pulse Ox 98% on R/A; Weight 58.51 kg / lf1 128.99 lbs (R); Height 5 ft. 3 in. (160.02 cm); Pain 0/10; 03:58 BP 124 / 53 (auto/); mv5 03:58 Pulse 80 MON; Pulse Ox 100% ; mv5 04:13 BP 116 / 55 (auto/); mv5 04:13 Pulse 80 MON; Pulse Ox 99% ; mv5 04:28 BP 105 / 56 (auto/); mv5 04:28 Pulse 78 MON; Pulse Ox 100% ; mv5 04:58 BP 103 / 58; Pulse 83; Resp 18; Temp 98.6(TE); Pulse Ox 97% on R/A; Pain 0/10; dane 03:28 Body Mass Index 22.85 (58.51 kg, 160.02 cm) lf1 MDM: 03:43 IV Saline Lock ordered. cs11 03:43 diphenhydrAMINE 25 mg IVP once ordered. cs11 03:43 Dexamethasone 15 mg IV at bolus once ordered. cs11 04:48 Financial registration complete. pm4 04:54 [facility] Payment Agreement was scanned into [employer] and attached to record. pm4 15:08 T-Sheet-- Draft Copy was scanned into [employer] and attached to record. gb Administered Medications: 04:10 Drug: diphenhydrAMINE 25 mg [diphenhydramine 50 mg/mL injection solution (0.5 mL)] mv5 Route: IVP; Site: right antecubital; 05:08 Follow up: Response: No Adverse Reaction mv5 04:10 Drug: Dexamethasone 15 mg [dexamethasone 4 mg/mL injection solution] Route: IV; Rate: mv5 bolus; Site: right antecubital; 05:07 Follow up: Response: No Adverse Reaction; IV Status: Completed infusion mv5 Signatures: Aspen Garcia, Reg Reg gb Jocelin Gutierrez,RN RN lf1 Jose Armando Elizabeth, DO cs11 Stephane Ortiz, Reg Reg pm4 Stephie Clark,RN RN mv5 The chart was reviewed and I authenticate all verbal orders and agree with the evaluation and treatment provided.Attachments: 04:54 [facility] Payment Agreement pm4 15:08 T-Sheet-- Draft Copy gb Chart Complete MTDD
--- NOTE | 2016-10-13 06:10 | EDDOCDS ---
Physician Documentation [facility] Name: Estrellita Ferrari Age: 61 yrs Sex: Female : 1955 Arrival Date: 10/11/2016 Time: 03:23 Bed 4 Private MD: Disposition: 10/11/16 04:55 Discharged to Home/Self Care. Impression: Allergy status to unspecified drugs, medicaments and biological substances status. - Condition is Stable. - Prescriptions for Prednisone 20 mg Oral Tablet - take 3 tablet by ORAL route once daily for 5 days; 15 tablet. - Medication Reconciliation, Local Pharmacy Hours form. - Follow up: Private Physician; When: Call to arrange an appointment; Reason: Recheck today's complaints. - Problem is an ongoing problem. - Symptoms have improved. Historical: - Allergies: Flagyl; PENICILLINS; SULFA (SULFONAMIDES); - Home Meds: 1. atorvastatin 20 mg oral tab 1 tab once daily 2. gabapentin 200mg Oral tab three times a day 3. Glucotrol Oral once daily 4. Invokana oral 1 tab once daily 5. metformin 500 mg Oral tab 4 tab daily 6. Vitamin C 500 mg Oral tab daily 7. Vitamin E 500mg Oral once daily 8. meloxicam 7.5 mg oral tab 1 tab twice a day 9. herpaceptin (Chemo) - PMHx: breast cancer; Cataracts; Diabetes - NIDDM: controlled; patent ductus; High Cholesterol; - PSHx: Cataract Surgery- Bilateral; Appendectomy; Hysterectomy; Mastectomy- Left; - Social history: Smoking status: Patient states former smoker of tobacco. No barriers to communication noted, The patient speaks fluent Grenadian, Speaks appropriately for age, Preferred Language: Grenadian. - Family history: Not pertinent. - : The pt / caregiver states he / she is not on anticoagulants. Home medication list is obtained from the patient. - Exposure Risk Screening:: None identified. Vital Signs: 10/11 03:28 BP 144 / 67; Pulse 98; Resp 20; Temp 100.0(TE); Pulse Ox 98% on R/A; Weight 58.51 kg / lf1 128.99 lbs (R); Height 5 ft. 3 in. (160.02 cm); Pain 0/10; 03:58 BP 124 / 53 (auto/); mv5 03:58 Pulse 80 MON; Pulse Ox 100% ; mv5 04:13 BP 116 / 55 (auto/); mv5 04:13 Pulse 80 MON; Pulse Ox 99% ; mv5 04:28 BP 105 / 56 (auto/); mv5 04:28 Pulse 78 MON; Pulse Ox 100% ; mv5 04:58 BP 103 / 58; Pulse 83; Resp 18; Temp 98.6(TE); Pulse Ox 97% on R/A; Pain 0/10; dane 03:28 Body Mass Index 22.85 (58.51 kg, 160.02 cm) lf1 MDM: 03:43 IV Saline Lock ordered. cs11 03:43 diphenhydrAMINE 25 mg IVP once ordered. cs11 03:43 Dexamethasone 15 mg IV at bolus once ordered. cs11 04:48 Financial registration complete. pm4 04:54 [facility] Payment Agreement was scanned into [employer] and attached to record. pm4 15:08 T-Sheet-- Draft Copy was scanned into [employer] and attached to record. gb Administered Medications: 04:10 Drug: diphenhydrAMINE 25 mg [diphenhydramine 50 mg/mL injection solution (0.5 mL)] mv5 Route: IVP; Site: right antecubital; 05:08 Follow up: Response: No Adverse Reaction mv5 04:10 Drug: Dexamethasone 15 mg [dexamethasone 4 mg/mL injection solution] Route: IV; Rate: mv5 bolus; Site: right antecubital; 05:07 Follow up: Response: No Adverse Reaction; IV Status: Completed infusion mv5 Signatures: Aspen Garcia, Reg Reg gb Jocelin Gutiererz,RN RN lf1 Jose Armando Elizabeth, DO cs11 Stephane Ortiz, Reg Reg pm4 Stephie Clark,RN RN mv5 The chart was reviewed and I authenticate all verbal orders and agree with the evaluation and treatment provided.Attachments: 04:54 [facility] Payment Agreement pm4 15:08 T-Sheet-- Draft Copy gb Chart Complete MTDD
== END 2016-10-11 05:08 | disposition home or self-care (01) ==
LOC: M ED 03:23
DX: T78.40XA Allergy, unspecified, initial encounter (principal); X58.XXXA Exposure to other specified factors, initial encounter; Y92.89 Other specified places as the place of occurrence of the external cause; Y93.89 Activity, other specified; Y99.8 Other external cause status; E11.9 Type 2 diabetes mellitus without complications; Q25.0 Patent ductus arteriosus; E78.00 Pure hypercholesterolemia, unspecified; H26.9 Unspecified cataract; C50.919 Malignant neoplasm of unspecified site of unspecified female breast; Z87.891 Personal history of nicotine dependence; Z88.0 Allergy status to penicillin; Z88.2 Allergy status to sulfonamides; Z88.8 Allergy status to other drugs, medicaments and biological substances; Z79.899 Other long term (current) drug therapy
CPT/HCPCS: 36415; 96365; 96375; 99284; J1100; J1200

== ENCOUNTER → 2016-10-19 | Outpatient (CLI) | payer MEDICAID ==
--- NOTE | 2016-10-21 12:11 | RADONC ---
RADIATION ONCOLOGY FOLLOWUP NOTE CHART NUMBER: [id number] DATE: 10/19/2016 DIAGNOSIS: Left breast cancer, stage III A, [id number]. ECOG performance status zero. FOLLOWUP NOTE: Ms. Ferrari is a very pleasant, 60-year-old white female with the diagnosis of a stage III A, [id number] moderately differentiated invasive ductal carcinoma of the left breast who is presenting to us today for routine followup visit 1 month post completion of external beam radiation therapy. The patient presents today reporting that she is doing quite well with no complaints at this time related to her radiation therapy or disease. She reports that she did have some type of allergic reaction to her Ceftin. She will be attempting to continue with her Ceftin treatment at this point, and this is being managed by her medical oncologist. REVIEW OF SYSTEMS: The patient's review of systems is noncontributory. Denies nausea, vomiting, fevers, chills, night sweats, diplopia, headaches, anxiety or depression, anorexia, weight loss, visual disturbances, chest pain, urinary or bowel difficulties, bone pain, or neurological problems. PHYSICAL EXAMINATION: The patient is a well-developed, well-nourished 60-year-old white female in no acute distress. HEENT exam is normocephalic, atraumatic. Extraocular movements are intact. There is no palpable cervical, supraclavicular, infraclavicular, axillary, or inguinal lymphadenopathy present. Lungs are clear to auscultation and percussion. Heart has a regular rate and rhythm. Abdomen is benign with no hepatosplenomegaly, masses, or tenderness. Breast examination reveals a right breast, which is free of masses and discharge. Her left chest wall shows no evidence of nodularity, ulceration or recurrent diseased no masses or discharge bilaterally. Skeletal examination reveals no tenderness to pressure or percussion of the bony skeleton. Extremities reveal some left upper extremity edema. There is no edema present in the other extremities. Neurologic exam is grossly intact, as is the remainder of the physical examination. ASSESSMENT: The patient is clinically doing well at this point. She is continuing to be followed and managed by her medical oncologist and will see me again in 6 months for further followup. cc: *Alla Andujar MD *Charlee Glass MD
== END ==
LOC: M ONCR 15:26
PROVIDERS: ATTEND Radiology Radiation Oncology
DX: C50.212 Malignant neoplasm of upper-inner quadrant of left female breast (principal)

== ENCOUNTER → 2016-11-09 | Day surgery (SDC) | payer MEDICAID ==
[~2016-11-09] VITALS: Ht 160 cm; Wt 59.0 kg
[~2016-11-09] MED LIST changes: +ACETAMINOPHEN 325 MG TAB PO PRN; +BENA25TA9 PO; +BSS with VANC/TOB/EPI for EYE CASES IR ONE; +CYCLOPENTOLATE 2% OPHTH SOLN As Ordered ONE; +CYCLOPENTOLATE 2% OPHTH SOLN OD ONE; +FAMO1TAB25 PO; +HEALON DUET (HEALON 10MG/ML 0.55ML & HEALON ENDOCOAT 30MG/ML 0.85ML) As Ordered ONE; +HERC440I2 IV; +KETOROLAC 0.5% OPHTH SOLN OD ONE; +LIDOCAINE 1% SDV 5 ML VIAL As Ordered ONE; +LIDOCAINE 4% INJ 5 ML AMP As Ordered ONE; +LIDOCAINE 4% INJ 5 ML AMP OU ONE; +MELO7.5T6 PO; +MIDAZOLAM INJ 2 MG/2 ML VIAL (J2250) As Ordered ONE; +MOXIFLOXACIN IN BSS 0.25MG/0.25ML INTRACAMERAL INJ (OR EYE ONLY)(J2280) As Ordered ONE; +OFLOXACIN 0.3 % (OCUFLOX) OPTH SOL 5ML As Ordered ONE; +OFLOXACIN 0.3 % (OCUFLOX) OPTH SOL 5ML OD ONE; +PHENYLEPHRINE 2.5% OPHTH SOL 2ML As Ordered ONE; +PHENYLEPHRINE 2.5% OPHTH SOL 2ML OD ONE; +POVIDONE-IODINE 5% OPHTH PREP SOL 30ML As Ordered ONE; +PRED20TA PO; +PROPARACAINE 0.5% OPHTH SOL 15ML OD PRN; +TRIAMCINOLONE PRES FR 40 MG/ML 1ML(TRIESENCE)(OR EYE ONLY)(J3300 PER 1MG) As Ordered ONE; +TRIMETHOBENZAMIDE 300 MG CAP PO PRN; +TROPICAMIDE 1% OPHTH SOLN 2 ML As Ordered ONE; +TROPICAMIDE 1% OPHTH SOLN 2 ML OD ONE; +TURM500C3 PO; +fentaNYL 100 MCG/2 ML INJECTION (J3010) As Ordered ONE
[2016-11-09 15:00] VITALS: BP 105/55
== END | disposition home or self-care (01) ==
LOC: M SDC 11:23
PROVIDERS: ATTEND Ophthalmology
DX: H26.9 Unspecified cataract (principal); E11.65 Type 2 diabetes mellitus with hyperglycemia; E78.2 Mixed hyperlipidemia; C50.912 Malignant neoplasm of unspecified site of left female breast; T88.59XD Other complications of anesthesia, subsequent encounter; R94.5 Abnormal results of liver function studies; R19.7 Diarrhea, unspecified; M12.9 Arthropathy, unspecified; I89.0 Lymphedema, not elsewhere classified; E11.40 Type 2 diabetes mellitus with diabetic neuropathy, unspecified; Z88.0 Allergy status to penicillin; Z88.2 Allergy status to sulfonamides; Z88.8 Allergy status to other drugs, medicaments and biological substances; Z90.710 Acquired absence of both cervix and uterus; Z92.21 Personal history of antineoplastic chemotherapy; Z92.3 Personal history of irradiation; Z78.0 Asymptomatic menopausal state
CPT/HCPCS: 66984; J2250; J2280; J3010; J3300

== ENCOUNTER → 2016-11-21 | Outpatient (CLI) | payer MEDICAID ==
[~2016-11-21] MED LIST changes: -ACETAMINOPHEN 325 MG TAB PO PRN; -BSS with VANC/TOB/EPI for EYE CASES IR ONE; -CYCLOPENTOLATE 2% OPHTH SOLN As Ordered ONE; -CYCLOPENTOLATE 2% OPHTH SOLN OD ONE; -HEALON DUET (HEALON 10MG/ML 0.55ML & HEALON ENDOCOAT 30MG/ML 0.85ML) As Ordered ONE; -KETOROLAC 0.5% OPHTH SOLN OD ONE; -LIDOCAINE 1% SDV 5 ML VIAL As Ordered ONE; -LIDOCAINE 4% INJ 5 ML AMP As Ordered ONE; -LIDOCAINE 4% INJ 5 ML AMP OU ONE; -MIDAZOLAM INJ 2 MG/2 ML VIAL (J2250) As Ordered ONE; -MOXIFLOXACIN IN BSS 0.25MG/0.25ML INTRACAMERAL INJ (OR EYE ONLY)(J2280) As Ordered ONE; -OFLOXACIN 0.3 % (OCUFLOX) OPTH SOL 5ML As Ordered ONE; -OFLOXACIN 0.3 % (OCUFLOX) OPTH SOL 5ML OD ONE; -PHENYLEPHRINE 2.5% OPHTH SOL 2ML As Ordered ONE; -PHENYLEPHRINE 2.5% OPHTH SOL 2ML OD ONE; -POVIDONE-IODINE 5% OPHTH PREP SOL 30ML As Ordered ONE; -PROPARACAINE 0.5% OPHTH SOL 15ML OD PRN; -TRIAMCINOLONE PRES FR 40 MG/ML 1ML(TRIESENCE)(OR EYE ONLY)(J3300 PER 1MG) As Ordered ONE; -TRIMETHOBENZAMIDE 300 MG CAP PO PRN; -TROPICAMIDE 1% OPHTH SOLN 2 ML As Ordered ONE; -TROPICAMIDE 1% OPHTH SOLN 2 ML OD ONE; -fentaNYL 100 MCG/2 ML INJECTION (J3010) As Ordered ONE
--- NOTE | 2016-11-23 23:54 | ECWPNPC ---
PATIENT NAME: DREW MENJIVAR : 1955 GENDER: FEMALE VISIT DATE: 11/21/2016 DISCHARGE DATE: 11/21/16 1625 VISIT LOCKED DATE TIME: PHYSICIAN: SHAYLA DAN RESOURCE: SHAYLA DAN REASON FOR APPOINTMENT 1. BACK-MEDICAID HISTORY OF PRESENT ILLNESS HISTORY OF PRESENT ILLNESS: PAIN THE PATIENT DESCRIBES THE PAIN... 61 YEAR OLD FEMALE PATIENT WITH HISTORY OF THORACIC AND LUMBAR PAIN. PATIENT DESCRIBES THE PAIN . PATIENT REPORTS THAT SHE HAS HAD THIS PAIN FOR MANY YEARS. PATIENT REPORTS THAT SHE WAS DIAGNOSIS WITH BREAST CANCER IN DECEMBER OF 2015, HAD SURGERY IN JUNE OF 2016, AND PATIENT IS CURRENT UNDER CHEMO AT THIS TIME. PATIENT STATES SHE IS STAGE 3 BREAST CANCER. PATIENT REPORTS THAT THE PAIN HER IN MID AND LOW BACK BECAME WORST WHEN SHE UNDER WENT CHEMO. PATIENT REPORTS THAT SHE BARELY SLEEPS AT NIGHT. PATIENT REPORTS THAT MELOXICAM WORKS OKAY FOR HER BUT THE PAIN IS STILL THERE. PATIENT REPORTS THAT SHE TAKES GABAPENTIN FOR RADIATING PAIN DOWN HER LEGS, BUT AT THIS TIME SHE DOES NOT HAVE ANY RADIATING PAIN. , PATIENT DENIES UNEXPLAINABLE WEIGHT LOSS, FEVER, CHILLS, NEW CHANGES ON HER URINARY OR BOWEL CONTROL. FALL RISK SCREENING: SCREENING :NO FALLS IN THE PAST YEAR CURRENT MEDICATIONS TAKING VITAMIN C 500 MG TABLET 1 TAB(S) ORALLY DAILY TAKING VITAMIN E 400 UNIT CAPSULE 1 CAP(S) ORALLY DAILY TAKING GLUCOPHAGE 500 MG TABLET 4 TABLETS ORALLY ONCE A DAY TAKING GLUCOTROL 5 MG TABLET 1 TABLET ORALLY ONCE A DAY TAKING LIPITOR 10 MG TABLET 1 TABLET ORALLY ONCE A DAY TAKING CALCIUM 1000 + D 1000-800 MG-UNIT TABLET 1 TABLET ORALLY ONCE A DAY TAKING INVOKANA 100 MG TABLET 1 TABLET ORALLY ONCE A DAY TAKING GABAPENTIN 100 MG CAPSULE 2 ORALLY TID TAKING ATORVASTATIN CALCIUM 10 MG TABLET 1 TABLET ORALLY ONCE A DAY TAKING TURMERIC 500 MG CAPSULE ORALLY TAKING MELOXICAM 7.5 MG TABLET 1 TABLET ORALLY BID TAKING PREDNISOLONE NOT-TAKING ESTRACE 0.5 MG TABLET 1 TABLET ORALLY DAILY NOT-TAKING CINNAMON OTC CAPSULE 1 CAP(S) ORALLY DAILY MEDICATION LIST REVIEWED AND RECONCILED WITH THE PATIENT PAST MEDICAL HISTORY NIDDM HYPERLIPIDEMIA BREAST CANCER ALLERGIES FLAGYL: SWELLING: ALLERGY FOSAMAX: SENSATION OF THROAT SWELLING: ALLERGY PENICILLIN (FOR ALLERGIES USE ONLY): SWELLING: ALLERGY SULFA (FOR ALLERGY USE ONLY): SWELLING: ALLERGY SURGICAL HISTORY CARDIAC 1956 LEFT MASTECTOMY 2016 LEFT BREAST IMPLANT 1979EFT BREAST IMPLANT REMOVED HYSTERECTOMY 1979 INFUSA PORT RIGHT 2016 FAMILY HISTORY NO FAMILY HISTORY DOCUMENTED. SOCIAL HISTORY GENERAL: TOBACCO USE ARE YOU A:NONSMOKER LEARNING BARRIERS / SPECIAL NEEDS ORIENTED TO PLAN OF CARE: PATIENT, PAIN MANAGEMENT PATIENT, ORIENTED TO PLAN OF CARE: PATIENT, PAIN MANAGEMENT PATIENT. NEW PATIENT PAIN DIARY TODAY'S VISITNOTES FROM 0-10, WHAT LEVEL IS YOUR PAIN TODAY?0 PAIN CLINIC PFS, CLERGY, PUBLIC HEALTH REFERRALS PFS REFERRAL NEEDED?NO CLERGY REFERRAL NEEDED?NO PUBLIC HEALTH REFERRAL NEEDED?NO WAS THE PROVIDER NOTIFIED OF ANY PERTINENT INFO?NO PFS REFERRAL NEEDED?NO CLERGY REFERRAL NEEDED?NO PUBLIC HEALTH REFERRAL NEEDED?NO WAS THE PROVIDER NOTIFIED OF ANY PERTINENT INFO?NO HOSPITALIZATION/MAJOR DIAGNOSTIC PROCEDURE NO HOSPITALIZATION HISTORY. REVIEW OF SYSTEMS CONSTITUTIONAL: ANY CHANGE IN YOUR MEDICAL CONDITION? NO . CHILLS NO . FEVER NO . INFECTION: DO YOU HAVE NEW INFECTIONS? NO . DO YOU HAVE HISTORY OF MRSA? NO . MUSCULOSKELETAL: ANY NEW PATTERNS OF PAIN OR NUMBNESS? NO . GASTROENTEROLOGY: ANY NEW CHANGE IN BOWEL CONTROL? NO . GENITOURINARY: ANY NEW CHANGE IN BLADDER CONTROL? NO . IS THERE A CHANCE YOU COULD BE ? NO . HEMATOLOGY/LYMPH: DO YOU TAKE ANY BLOOD THINNERS? (FOR EXAMPLE- COUMADIN, PLAVIX, AGGRENOX, PLATEL, PRADAXA, OR XARELTO) NO . WHEN WAS YOUR LAST DOSE? DATE: TIME: . NEUROLOGY: HAVE YOU FALLEN IN THE PAST 6 MONTHS? NO . ANY NEW EXTREMITY NUMBNESS OR WEAKNESS? NO . CARDIOLOGY: DO YOU HAVE A PACEMAKER OR DEFIBRILLATOR? NO . RESPIRATORY: HAVE YOU BEEN SICK IN THE PAST WEEK? NO . FEVER NO . FLU LIKE SYMPTOMS? NO . COUGH NO . INTEGUMENTARY: DO YOU HAVE ANY RASHES OR OPEN SORES? NO . ALLERGIC/IMMUNO: ARE YOU ALLERGIC TO SHELLFISH OR IV DYE? NO . ANY NEW ALLERGIES? NO . PSYCHIATRIC: DO YOU HAVE THOUGHTS OF HURTING YOURSELF OR SOMEONE ELSE? NO . ARE YOU ABUSED, NEGLECTED, OR IN AN UNSAFE ENVIRONMENT? NO . ENDOCRINOLOGY: ARE YOU DIABETIC? YES . OTHER: DO YOU NEED ANY PRESCRIPTIONS? NO . IF YES, PLEASE LIST: ____ . ANY NEW PROBLEMS WITH YOUR MEDICATIONS? NO . WHEN DID YOU LAST EAT? ____ . WHEN DID YOU LAST DRINK? ____ . WHAT DID YOU LAST DRINK? ____ . NAME OF PERSON DRIVING YOU HOME? ____ . DO YOU HAVE ANY OTHER QUESTIONS OR CONCERNS NO . REVIEWED BY: PROVIDER: SHAYLA DAN MD . VITAL SIGNS WT 129.8 LBS, HT 63 1/2, BMI 22.63 INDEX, BP 149/66 MM HG, HR 88 /MIN, RR 18 /MIN, TEMP 97.2 F, OXYGEN SAT % 97, NA INITIALS HS. EXAMINATION : PATIENT IS ALERT O X 3 AND COOPERATIVE. PATIENT AMBULATES WITH A NORMAL GAIT. PATIENT IS ABLE TO FLEX HER BACK TO 50 DEGREES AND EXTEND HER BACK TO 15 DEGREES. PATIENT IS ABLE TO ABDUCT HER UPPER EXTREMITIES PAST HER SHOULDERS. PATIENT HAS TENDERNESS IN THE THORACIC AND LUMBAR PARASPINAL MUSCLE GROUP WITH BANDS OF TISSUES, RESTRICTION OF MOVEMENTS, AND PRESENCE OF TRIGGER POINTS. MRI OF THE LUMBAR SPINE DONE ON 08-23-2016 SHOWS DISC BULGES AT L3-L5 AND FACET ARTHROPATHY CHANGES. MRI OF THE THORACIC SPINE DONE ON 08-23-2016 SHOWS ANTERIOR OSTEOPHYTES AND DEGENERATIVE CHANGES. 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 MENJIVAR'S PAIN MANAGEMENT CASE. I WAS WITH THE PATIENT MORE THAN 40 MINUTES IN TODAY'S ENCOUNTER, MORE THAN HALF THE TIME WAS DEDICATED TO DISCUSSING THE PATIENT ALTERNATIVES, COUNSELING, AND DISCUSSING HER CASE. AT THIS TIME I WILL HAVE THE PATIENT START ON TIZANIDINE AND CYMBALTA. AFTER EXAMINING THE PATIENT AND REVIEWING THE MRIS, THE PATIENT IS A GOOD CANDIDATE FOR A TPI. I DISCUSSED WITH THE PATIENT THAT TPI IS THE LEAST EVASIVE PROCEDURE. PATIENT STATED THAT SHE HAS DIFFICULTIES WITH STEROIDS THAT IT CAUSES HER BLOOD PRESSURE TO GO UP. I DISCUSSED WITH THE PATIENT THAT I CAN DO TPI WITHOUT STEROIDS AND ANOTHER PROCEDURE THAT DOES NOT USE STEROIDS IS A RADIOFREQUENCY. BUT THAT PROCEDURE IS MORE EVASIVE COMPARED TO THE TPI. WE DISCUSSED THE RISK, BENEFITS, AND ALTERNATIVES AND THE PATIENT WOULD LIKE TO PROCEED WITH TPI WITHOUT STEROIDS. PATIENT WILL BE BOOKED PENDING AUTH. INSTRUCTIONS WERE GIVEN, QUESTIONS WERE ANSWERED, PATIENT REPORTS UNDERSTANDING AND AGREES WITH THE PLAN. I, LIAM LACY, DOCUMENTED THE ABOVE INFORMATION ACTING A SCRIBE FOR DR. DAN. I HAVE REVIEWED THE ABOVE DOCUMENT, WRITTEN BY LIAM LACY SCRIBMerlene AND I VERIFY THAT IT IS ACCURATE. SPONDYLOSIS WITHOUT MYELOPATHY OR RADICULOPATHY, LUMBAR REGION START TIZANIDINE HCL TABLET, 2 MG, 1 TABLET NEEDED, ORALLY FOR SPASMS AND PAIN, BEFORE BEDTIME MAY REPEAT IN 4 HRS MDD2, 30 DAY(S), 60, REFILLS 1 START CYMBALTA CAPSULE DELAYED RELEASE PARTICLES, 30 MG, 1 CAPSULE, ORALLY WITH FOOD, TWICE A DAY FOR PAIN, 30 DAY(S), 60, REFILLS 1 PROCEDURE CODES FA211 ESTABILISHED PATIENT [facility] FACILITY CHARGE G8730 PAIN ASSESS POS TOOL F/U PLAN DOC G8427 DOC MEDS VERIFIED W/PT OR RE DISPOSITION & COMMUNICATION FOLLOW UP TPI WITHOUT STEROIDS ELECTRONICALLY SIGNED BY SHAYLA DAN MD ON 11/23/2016 AT 08:34 PM EDT DISCLAIMER : THIS IS A VISIT SUMMARY EXTRACTED FROM THE [employer] CHART. IT IS NOT A COPY OF THE [employer] PROGRESS NOTE. MTDLuz Maria
== END ==
LOC: M PAIN 14:00
PROVIDERS: ATTEND Anesthesiology
DX: M54.5 Low back pain (principal); M79.1 Myalgia; M54.6 Pain in thoracic spine; M47.814 Spondylosis without myelopathy or radiculopathy, thoracic region; M47.816 Spondylosis without myelopathy or radiculopathy, lumbar region; G89.29 Other chronic pain; Z79.899 Other long term (current) drug therapy; E78.5 Hyperlipidemia, unspecified; E11.9 Type 2 diabetes mellitus without complications; C50.912 Malignant neoplasm of unspecified site of left female breast

== ENCOUNTER → 2016-12-16 | Outpatient (CLI) | payer MEDICAID ==
--- NOTE | 2016-12-26 00:15 | ECWPNPC ---
PATIENT NAME: DREW MENJIVAR : 1955 GENDER: FEMALE VISIT DATE: 12/16/2016 DISCHARGE DATE: 12/16/161717 VISIT LOCKED DATE TIME: PHYSICIAN: SHAYLA DAN RESOURCE: SHAYLA DAN REASON FOR APPOINTMENT 1. LOW BACK PAIN HISTORY OF PRESENT ILLNESS HISTORY OF PRESENT ILLNESS: PAIN THE PATIENT DESCRIBES THE PAIN... 61 YEAR OLD FEMALE PATIENT WITH HISTORY OF CHRONIC LOW BACK PAIN. PATIENT DESCRIBES THE PAIN ACHING, BURNING, WITH THE PAIN COMING AND GOING WITH A PAIN SCORE OF 3.5/10. PATIENT IS CURRENTLY USING GABAPENTIN, MELOXICAM, AND CYMBALTA WHICH SHE STATES KEEPS HER MOBILE AND FUNCTIONAL. PATIENT STATES THAT ANY TYPE OF MOVEMENT INCREASES THE PAIN IN HER LOWER BACK AND AT THIS TIME REST AND INTERVENTIONS AID IN PAIN RELIEF. PATIENT DENIES UNEXPLAINABLE WEIGHT LOSS, FEVER, CHILLS, NEW CHANGES ON HER URINARY OR BOWEL CONTROL. FALL RISK SCREENING: SCREENING :NO FALLS IN THE PAST YEAR CURRENT MEDICATIONS TAKING VITAMIN C 500 MG TABLET 1 TAB(S) ORALLY DAILY TAKING VITAMIN E 400 UNIT CAPSULE 1 CAP(S) ORALLY DAILY TAKING GLUCOPHAGE 500 MG TABLET 4 TABLETS ORALLY ONCE A DAY TAKING GLUCOTROL 5 MG TABLET 1 TABLET ORALLY ONCE A DAY TAKING LIPITOR 10 MG TABLET 1 TABLET ORALLY ONCE A DAY TAKING CALCIUM 1000 + D 1000-800 MG-UNIT TABLET 1 TABLET ORALLY ONCE A DAY TAKING INVOKANA 300 MG TABLET 1 TABLET ORALLY ONCE A DAY TAKING GABAPENTIN 100 MG CAPSULE 2 ORALLY TID TAKING ATORVASTATIN CALCIUM 10 MG TABLET 1 TABLET ORALLY ONCE A DAY TAKING TURMERIC 500 MG CAPSULE ORALLY DAILY TAKING MELOXICAM 7.5 MG TABLET 1 TABLET ORALLY BID TAKING PREDNISOLONE TAKING CYMBALTA 30 MG CAPSULE DELAYED RELEASE PARTICLES 1 CAPSULE ORALLY WITH FOOD TWICE A DAY FOR PAIN, NOTES: NEVER GOT APPROVED TAKING MELATONIN 5 MG TABLET 1 TABLET AT BEDTIME NEEDED WITH FOOD ORALLY ONCE A DAY DISCONTINUED TIZANIDINE HCL 2 MG TABLET 1 TABLET NEEDED ORALLY FOR SPASMS AND PAIN BEFORE BEDTIME MAY REPEAT IN 4 HRS MDD2 DISCONTINUED ESTRACE 0.5 MG TABLET 1 TABLET ORALLY DAILY DISCONTINUED CINNAMON OTC CAPSULE 1 CAP(S) ORALLY DAILY MEDICATION LIST REVIEWED AND RECONCILED WITH THE PATIENT PAST MEDICAL HISTORY NIDDM HYPERLIPIDEMIA BREAST CANCER ALLERGIES FLAGYL: SWELLING: ALLERGY FOSAMAX: SENSATION OF THROAT SWELLING: ALLERGY PENICILLIN (FOR ALLERGIES USE ONLY): SWELLING: ALLERGY SULFA (FOR ALLERGY USE ONLY): SWELLING: ALLERGY SURGICAL HISTORY CARDIAC 1955 LEFT MASTECTOMY 2016 LEFT BREAST IMPLANT 1979EFT BREAST IMPLANT REMOVED HYSTERECTOMY 1978 INFUSA PORT RIGHT 2016 FAMILY HISTORY NO FAMILY HISTORY DOCUMENTED. SOCIAL HISTORY GENERAL: PAIN CLINIC PFS, CLERGY, PUBLIC HEALTH REFERRALS CLERGY REFERRAL NEEDED?NO WAS THE PROVIDER NOTIFIED OF ANY PERTINENT INFO?NO PFS REFERRAL NEEDED?NO PUBLIC HEALTH REFERRAL NEEDED?NO PATIENT: ____. HOSPITALIZATION/MAJOR DIAGNOSTIC PROCEDURE NO HOSPITALIZATION HISTORY. REVIEW OF SYSTEMS CONSTITUTIONAL: ANY CHANGE IN YOUR MEDICAL CONDITION? NO . CHILLS NO . FEVER NO . INFECTION: DO YOU HAVE NEW INFECTIONS? NO . DO YOU HAVE HISTORY OF MRSA? NO . MUSCULOSKELETAL: ANY NEW PATTERNS OF PAIN OR NUMBNESS? NO . GASTROENTEROLOGY: ANY NEW CHANGE IN BOWEL CONTROL? NO . GENITOURINARY: ANY NEW CHANGE IN BLADDER CONTROL? NO . IS THERE A CHANCE YOU COULD BE ? NO . HEMATOLOGY/LYMPH: DO YOU TAKE ANY BLOOD THINNERS? (FOR EXAMPLE- COUMADIN, PLAVIX, AGGRENOX, PLATEL, PRADAXA, OR XARELTO) NO . WHEN WAS YOUR LAST DOSE? DATE: TIME: . NEUROLOGY: HAVE YOU FALLEN IN THE PAST 6 MONTHS? NO . ANY NEW EXTREMITY NUMBNESS OR WEAKNESS? NO . CARDIOLOGY: DO YOU HAVE A PACEMAKER OR DEFIBRILLATOR? NO . RESPIRATORY: HAVE YOU BEEN SICK IN THE PAST WEEK? NO . FEVER NO . FLU LIKE SYMPTOMS? NO . COUGH NO . INTEGUMENTARY: DO YOU HAVE ANY RASHES OR OPEN SORES? NO . ALLERGIC/IMMUNO: ARE YOU ALLERGIC TO SHELLFISH OR IV DYE? NO . ANY NEW ALLERGIES? NO . PSYCHIATRIC: DO YOU HAVE THOUGHTS OF HURTING YOURSELF OR SOMEONE ELSE? NO . ARE YOU ABUSED, NEGLECTED, OR IN AN UNSAFE ENVIRONMENT? NO . ENDOCRINOLOGY: ARE YOU DIABETIC? YES . OTHER: DO YOU NEED ANY PRESCRIPTIONS? NO . IF YES, PLEASE LIST: ____ . ANY NEW PROBLEMS WITH YOUR MEDICATIONS? YES, TIZANIDINE CAUSED TOO DEEP OF TEM SLEEP. STOPPED TAKING IT. NEVER GOT CYMBALTA. . WHEN DID YOU LAST EAT? ____ . WHEN DID YOU LAST DRINK? ____ . WHAT DID YOU LAST DRINK? ____ . NAME OF PERSON DRIVING YOU HOME? ____ . DO YOU HAVE ANY OTHER QUESTIONS OR CONCERNS NO . REVIEWED BY: PROVIDER: SHAYLA DAN MD . VITAL SIGNS WT 132.0 LBS, HT 63 1/2, BMI 23.01 INDEX, BP 122/59 MM HG, HR 87 /MIN, RR 18 /MIN, TEMP 97.4 F, OXYGEN SAT % 96%, NA INITIALS AW 1448, REVIEWED BY: CM. EXAMINATION : PATIENT IS ALERT O X 3 AND COOPERATIVE. BANDS OF TISSUE, RESTRICTION OF MOVEMENT, AND PRESENCE OF TRIGGER POINTS IN THE LOWER BACK AREA. TENDERNESS IN THE LOWER BACK AND PARASPINAL MUSCLE GROUP. MRI DONE ON 08/23/16 SHOWS DISC BULGES AT L3-L4 AND L4-L5, FACET HYPERTROPHY, AND A FATTY INFILTRATION OF THE FILUM TERMINALE. 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 MENJIVAR'S PAIN MANAGEMENT CASE. AT THIS TIME THE PATIENT WILL CONTINUE WITH THE SAME MEDICATION REGIME BEFORE. I WOULD LIKE THE PATIENT TO START CYMBALTA, PATIENT WAS ADVISED TO STOP THE MEDICATION IS SHE HAS ANY ADVERSE SIDE EFFECTS. DUE TO THE SPASTICITY AND BANDS OF TISSUE IN THE LOWER BACK I WOULD LIKE TO MOVE FORWARD WITH TRIGGER POINT INJECTIONS. WE DISCUSSED THE RISKS, BENEFITS, AND ALTNERATIVES OF THE INJECTION AND THE PATIENT WOULD LIKE TO PROCEED AT THIS TIME. INSTRUCTIONS WERE GIVEN, QUESTIONS WERE ANSWERED, PATIENT REPORTS UNDERSTANDING AND AGREES WITH THE PLAN. I, HARRIETT MYERS, DOCUMENTED THE ABOVE INFORMATION ACTING A SCRIBE FOR DR. DAN. I HAVE REVIEWED THE ABOVE DOCUMENT, WRITTEN BY HARRIETT ALFREDO AND I VERIFY THAT IT IS ACCURATE. SPONDYLOSIS WITHOUT MYELOPATHY OR RADICULOPATHY, LUMBAR REGION REFILL CYMBALTA CAPSULE DELAYED RELEASE PARTICLES, 30 MG, 1 CAPSULE, ORALLY WITH FOOD, TWICE A DAY FOR PAIN, 30 DAY(S), 60, REFILLS 1, NOTES: NEVER GOT APPROVED PROCEDURE CODES FA211 ESTABILISHED PATIENT [facility] FACILITY CHARGE G8427 DOC MEDS VERIFIED W/PT OR RE G8730 PAIN ASSESS POS TOOL F/U PLAN DOC DISPOSITION & COMMUNICATION FOLLOW UP TPI AFTER APPROVAL ELECTRONICALLY SIGNED BY SHAYLA DAN MD ON 12/25/2016 AT 04:41 PM EDT DISCLAIMER : THIS IS A VISIT SUMMARY EXTRACTED FROM THE [employer] CHART. IT IS NOT A COPY OF THE [employer] PROGRESS NOTE. DEANDRE
== END ==
LOC: M PAIN 14:40
PROVIDERS: ATTEND Anesthesiology
DX: M79.1 Myalgia (principal); M47.816 Spondylosis without myelopathy or radiculopathy, lumbar region; M51.16 Intervertebral disc disorders with radiculopathy, lumbar region; M54.5 Low back pain; G89.29 Other chronic pain; Z79.891 Long term (current) use of opiate analgesic; Z79.84 Long term (current) use of oral hypoglycemic drugs; Z79.899 Other long term (current) drug therapy; E11.9 Type 2 diabetes mellitus without complications; E78.5 Hyperlipidemia, unspecified; Z88.0 Allergy status to penicillin; Z88.2 Allergy status to sulfonamides; Z88.8 Allergy status to other drugs, medicaments and biological substances

== ENCOUNTER → 2016-12-30 | Outpatient (CLI) | payer MEDICAID ==
[~2016-12-30] MED LIST changes: +BUPIVACAINE HCL 0.25% 10 ML VIAL As Ordered ONE; +BUPIVACAINE HCL 0.25% 30 ML VIAL As Ordered ONE
--- NOTE | 2017-01-08 23:51 | ECWPNPC ---
PATIENT NAME: DREW MENJIVAR : 1955 GENDER: FEMALE VISIT DATE: 12/30/2016 DISCHARGE DATE: 12/30/16 1030 VISIT LOCKED DATE TIME: PHYSICIAN: SHAYLA DAN RESOURCE: SHAYLA DAN REASON FOR APPOINTMENT 1. TPI HISTORY OF PRESENT ILLNESS HISTORY OF PRESENT ILLNESS: PAIN THE PATIENT DESCRIBES THE PAIN... FALL RISK SCREENING: SCREENING :NO FALLS IN THE PAST YEAR CURRENT MEDICATIONS TAKING VITAMIN C 500 MG TABLET 1 TAB(S) ORALLY DAILY, NOTES: 630 PM TAKING VITAMIN E 400 UNIT CAPSULE 1 CAP(S) ORALLY DAILY, NOTES: 2 NIGHTS AGO TAKING GLUCOPHAGE 500 MG TABLET 4 TABLETS ORALLY ONCE A DAY, NOTES: 2 NIGHTS AGO TAKING GLUCOTROL 5 MG TABLET 1 TABLET ORALLY ONCE A DAY, NOTES: YESTERDAY AM TAKING LIPITOR 10 MG TABLET 1 TABLET ORALLY ONCE A DAY, NOTES: YESTERDAY AM TAKING CALCIUM 1000 + D 1000-800 MG-UNIT TABLET 1 TABLET ORALLY ONCE A DAY, NOTES: YESTERDAY AM TAKING INVOKANA 300 MG TABLET 1 TABLET ORALLY ONCE A DAY, NOTES: YESTERDAY AM TAKING GABAPENTIN 100 MG CAPSULE 2 ORALLY TID, NOTES: NOON YESTERDAY TAKING ATORVASTATIN CALCIUM 10 MG TABLET 1 TABLET ORALLY ONCE A DAY, NOTES: YESTERDAY AM TAKING MELOXICAM 7.5 MG TABLET 1 TABLET ORALLY BID, NOTES: YESTERDAY AM TAKING MELATONIN 5 MG TABLET 1 TABLET AT BEDTIME NEEDED WITH FOOD ORALLY ONCE A DAY, NOTES: 2-3 NIGHTS AGO NOT-TAKING TURMERIC 500 MG CAPSULE ORALLY DAILY NOT-TAKING PREDNISOLONE NOT-TAKING CYMBALTA 30 MG CAPSULE DELAYED RELEASE PARTICLES 1 CAPSULE ORALLY WITH FOOD TWICE A DAY FOR PAIN, NOTES: NEVER GOT APPROVED MEDICATION LIST REVIEWED AND RECONCILED WITH THE PATIENT PAST MEDICAL HISTORY NIDDM HYPERLIPIDEMIA BREAST CANCER ALLERGIES FLAGYL: SWELLING: ALLERGY FOSAMAX: SENSATION OF THROAT SWELLING: ALLERGY PENICILLIN (FOR ALLERGIES USE ONLY): SWELLING: ALLERGY SULFA (FOR ALLERGY USE ONLY): SWELLING: ALLERGY REVIEW OF SYSTEMS CONSTITUTIONAL: ANY CHANGE IN YOUR MEDICAL CONDITION? NO . CHILLS NO . FEVER NO . INFECTION: DO YOU HAVE NEW INFECTIONS? NO . DO YOU HAVE HISTORY OF MRSA? NO . MUSCULOSKELETAL: ANY NEW PATTERNS OF PAIN OR NUMBNESS? NO . GASTROENTEROLOGY: ANY NEW CHANGE IN BOWEL CONTROL? NO . GENITOURINARY: ANY NEW CHANGE IN BLADDER CONTROL? NO . IS THERE A CHANCE YOU COULD BE ? NO . HEMATOLOGY/LYMPH: DO YOU TAKE ANY BLOOD THINNERS? (FOR EXAMPLE- COUMADIN, PLAVIX, AGGRENOX, PLATEL, PRADAXA, OR XARELTO) NO . WHEN WAS YOUR LAST DOSE? DATE: TIME: . NEUROLOGY: HAVE YOU FALLEN IN THE PAST 6 MONTHS? NO . ANY NEW EXTREMITY NUMBNESS OR WEAKNESS? NO . CARDIOLOGY: DO YOU HAVE A PACEMAKER OR DEFIBRILLATOR? NO . RESPIRATORY: HAVE YOU BEEN SICK IN THE PAST WEEK? NO . FEVER NO . FLU LIKE SYMPTOMS? NO . COUGH NO . INTEGUMENTARY: DO YOU HAVE ANY RASHES OR OPEN SORES? NO . ALLERGIC/IMMUNO: ARE YOU ALLERGIC TO SHELLFISH OR IV DYE? NO . ANY NEW ALLERGIES? NO . PSYCHIATRIC: DO YOU HAVE THOUGHTS OF HURTING YOURSELF OR SOMEONE ELSE? NO . ARE YOU ABUSED, NEGLECTED, OR IN AN UNSAFE ENVIRONMENT? NO . ENDOCRINOLOGY: ARE YOU DIABETIC? YES, BLOOD SUGAR 158 AT 0715 . OTHER: DO YOU NEED ANY PRESCRIPTIONS? NO . IF YES, PLEASE LIST: ____ . ANY NEW PROBLEMS WITH YOUR MEDICATIONS? NO . WHEN DID YOU LAST EAT? 1030PM . WHEN DID YOU LAST DRINK? 11PM . WHAT DID YOU LAST DRINK? WATER . NAME OF PERSON DRIVING YOU HOME? MOTHER . DO YOU HAVE ANY OTHER QUESTIONS OR CONCERNS NO . REVIEWED BY: PROVIDER: . VITAL SIGNS WT 132 LBS, HT 63 1/2, BMI 23.01 INDEX, BP 144/64 MM HG, HR 76 /MIN, RR 16 /MIN, TEMP 97:7, OXYGEN SAT % 97%, NA INITIALS SC 08:56, REVIEWED BY: NL. ASSESSMENTS MYALGIA - M79.1 (PRIMARY) PROCEDURES PN TRIGGER POINT INJECTION NO STEROIDS PRE PROCEDURE DIAGNOSIS 1. MYALGIA 2. PAIN AT BILATERAL THORACIC AREA AND BILATERAL LOWER BACK AREA POST PROCEDURE DIAGNOSIS 1. MYALGIA 2. PAIN AT BILATERAL THORACIC AREA AND BILATERAL LOWER BACK AREA PROCEDURE TRIGGER POINT INJECTION AT BILATERAL THORACIC AREA AND BILATERAL LOWER BACK AREA SURGEON DR. SHAYLA DAN WATCH REPAIRER NONE ANESTHESIA LOCAL PRE PROCEDURE NOTE 61 YEAR-OLD PATIENT WITH HISTORY OF CHRONIC PAIN AT RIGHT AND LEFT THORACIC AREA AND RIGHT AND LEFT LOWER BACK AREA. I EVALUATED THE PATIENT AND REVIEWED THE CHART. THERE IS EVIDENCE OF BANDS OF TISSUE WITH RESTRICTION OF MOVEMENT AND PRESENCE OF TRIGGER POINT AT THE AFFECTED AREA. I WENT OVER THE RISKS, ALTERNATIVES, AND BENEFITS ASSOCIATED WITH THIS PROCEDURE. THE PATIENT WOULD LIKE TO PROCEED AND GAVE CONSENT TO PERFORM THE PROCEDURE. THE PATIENT DENIES UNEXPLAINABLE WEIGHT LOSS, FEVER, CHILLS, OR NEW CHANGES IN URINARY OR BOWEL CONTROL DESCRIPTION OF PROCEDURE THE PATIENT WAS BROUGHT TO THE PROCEDURE ROOM AND PLACED IN THE SITTING PRONE POSITION. THE AREA WAS CLEANED WITH ALCOHOL. THE PROCEDURE WAS DONE USING [employer] STERILE TECHNIQUES. I CHECKED LATERALITY AND THE LEVEL WHERE THE PROCEDURE WAS GOING TO BE PERFORMED WITH THE PATIENT AND THE SUPPORTING STAFF AT THE MOMENT OF THE TIME OUT IN THE PROCEDURE ROOM. USING A 25-GAUGE NEEDLE, TRIGGER POINTS WERE INJECTED AT THE RIGHT AND LEFT THORACIC AREA AND RIGHT AND LEFT LOWER BACK AREA WITH A TOTAL OF 40 ML OF BUPIVACAINE 0.25%. AGREED WITH THE PATIENT THE PROCEDURE WAS DONE WITHOUT STEROIDS. THERE WAS NO EVIDENCE OF BLOOD, PARESTHESIA OR CEREBROSPINAL FLUID DURING THE PROCEDURE. THE PATIENT WAS SENT TO THE RECOVERY ROOM. THE PATIENT WAS MOVING THE EXTREMITIES AND DOING WELL. THERE WAS NO COMPLICATION DURING THE PROCEDURE POST PROCEDURE NOTE THE PATIENT WILL BE SEEN IN A FOLLOW UP IN THE NEXT FEW WEEKS. INSTRUCTIONS WERE GIVEN, QUESTIONS WERE ANSWERED, AND THE PATIENT EXPRESSED UNDERSTANDING AND AGREED WITH THE PLAN. I, HARRIETT MYERS, DOCUMENTED THE ABOVE INFORMATION ACTING A SCRIBE FOR DR. DAN. I HAVE REVIEWED THE ABOVE DOCUMENT, WRITTEN BY HARRIETT ALFREDO AND I VERIFY THAT IT IS ACCURATE PROCEDURE CODES 98807 INJECT TRIGGER POINTS 3/> DISPOSITION & COMMUNICATION FOLLOW UP 3 WEEKS ELECTRONICALLY SIGNED BY SHAYLA DAN MD ON 01/08/2017 AT 05:52 PM EDT DISCLAIMER : THIS IS A VISIT SUMMARY EXTRACTED FROM THE [employer] CHART. IT IS NOT A COPY OF THE [employer] PROGRESS NOTE. DEANDRE
== END ==
LOC: M PAIN 08:40
PROVIDERS: ATTEND Anesthesiology
DX: M79.1 Myalgia (principal); G89.29 Other chronic pain; Z79.899 Other long term (current) drug therapy; Z88.8 Allergy status to other drugs, medicaments and biological substances; Z88.0 Allergy status to penicillin; Z88.2 Allergy status to sulfonamides; E11.9 Type 2 diabetes mellitus without complications; E78.5 Hyperlipidemia, unspecified

== ENCOUNTER → 2017-01-10 | Outpatient (CLI) | payer MEDICAID ==
[~2017-01-10] MED LIST changes: -BUPIVACAINE HCL 0.25% 10 ML VIAL As Ordered ONE; -BUPIVACAINE HCL 0.25% 30 ML VIAL As Ordered ONE
--- NOTE | 2017-01-11 10:54 | ECHO ---
DATE OF PROCEDURE: 01/10/2017 Age: 61. Gender: Female. Height 63 inches, weight 132 pounds, body surface area 1.62 meters squared. OUTPATIENT REFERRING PHYSICIAN: Alla Andujar INDICATION: Shortness of breath. Breast cancer, receiving a potentially cardiotoxic chemotherapy. MEASUREMENTS: 2D measurements: RV - 3.1 cm LV - 3.6 cm Septum - 1.0 cm Posterior wall - 1.0 cm Aortic root - 2.5 cm LA - 3.2 cm LVEF - 60% Doppler measurements: AV - 1.7 meters per second LVOT - 0.82 meters per second LVOT diameter - 1.6 cm MV - E - 107 A - 98 EA ratio - 1.2 Early mitral deceleration time - 169 milliseconds E prime - 7.5 A prime - 6 E/E prime ratio - 14.2 PV - 0.75 meters per second Pulmonary artery acceleration time - 127 milliseconds PASP - 22 mmHg IVC - 1.7 cm COMMENTS: Normal sinus rhythm without interventricular conduction disturbance. Normal cardiac chamber sizes and wall thickness. On real-time imaging from the parasternal and apical projections, wall motion was symmetrical and normal. Normal-appearing mitral valvular apparatus and leaflet excursion with no posterior systolic buckling. Three equal-size aortic cusps with slight asymmetrical cusp thickening with reduced separation of the commissure between the left and the noncoronary cusp. Normal aortic root size. No apparent intracardiac mass or pericardial effusion. Color-flow Doppler study taken from the parasternal and apical projection showed trace aortic, trace mitral, and trace tricuspid insufficiency. Guided continuous wave Doppler of her aortic valve showed a normal peak systolic velocity against LV outflow tract obstruction. Pulsed and continuous wave Doppler of her LV inflow tract taken from the apical four-chamber projection showed normal diastolic filling velocities against mitral stenosis. The filling pattern was also normal against LV diastolic dysfunction. Current estimated mean left atrial pressure was still within normal limits. Pulsed and continuous wave Doppler of her pulmonary trunk showed a normal peak systolic velocity against RV outflow tract obstruction. Her pulmonary artery acceleration time was normal against an elevated pulmonary vascular resistance. We attempted to further estimate her right ventricular systolic pressure using guided continuous wave Doppler of her tricuspid valve but could not get a clear spectral envelope of her insufficiency. Normal IVC size and collapse against an elevated central venous pressure. CONCLUSIONS: Normal left ventricular size, wall thickness, and wall motion. Normal left atrial size and Doppler assessment of LV diastolic function and estimated mean left atrial pressure. Normal right heart chamber sizes and contraction with normal estimated pulmonary arterial pressure. Mild asymmetrically thickened aortic valve without stenosis and only trace insufficiency. Comparing today's study with that of 09/14/2016, there did not appear to be a significant change.
== END ==
LOC: M CARPUL 08:15
PROVIDERS: ATTEND Internal Medicine Hematology & Oncology
DX: R06.02 Shortness of breath (principal); Z79.899 Other long term (current) drug therapy; C50.212 Malignant neoplasm of upper-inner quadrant of left female breast; G62.9 Polyneuropathy, unspecified

== ENCOUNTER → 2017-01-11 | Outpatient (CLI) | payer MEDICAID ==
--- NOTE | 2017-01-12 09:51 | REP ---
PET/CT: HISTORY: Restaging breast carcinoma. 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 The patient is also status post radiation therapy. Elevated tumor markers. COMPARISONS: PET/CT studies are from June 22, 2016 and March 02, 2016. TECHNIQUE: 179 minutes following the intravenous injection of a 8.0 mCi dose of F-18 FDG, three-dimensional PET scintigraphy is acquired from the skull base to the proximal thighs. Triplanar noncontrast CT scanning is acquired through the same anatomic range for attenuation correction, and image registration with scan parameters optimized to minimize radiation exposure to the patient. PET scintigraphy and CT datasets were fused and displayed on a workstation with multiplanar and projection display capability. PET/CT FINDINGS: There is a mild pattern of non-hypermetabolic uptake along the anterolateral chest wall on the left through the mastectomy site as well as in some pleuroparenchymal fibrosis in the anterolateral left lung consistent with postradiation change. There is no other abnormal hypermetabolic uptake. No abnormal skeletal uptake is seen. No axillary mass lesion or abnormal axillary uptake is seen. No internal mammary karyn uptake is appreciated. There is a right-sided Ejjikd-N-Xufz catheter with its tip in the superior vena cava. No abnormal hypermetabolic uptake is seen in the abdomen or pelvis. No abnormal skeletal hypermetabolic uptake is seen. IMPRESSION: Postradiation changes left anterior chest wall and anterolateral lung on the left. No abnormal hypermetabolic uptake is seen. Signed by Arthur Contreras MD 01/12/2017 12:54 P
== END ==
LOC: M PLARAD 16:13
PROVIDERS: ATTEND Internal Medicine Hematology & Oncology
DX: C50.212 Malignant neoplasm of upper-inner quadrant of left female breast (principal); G62.9 Polyneuropathy, unspecified; Z88.1 Allergy status to other antibiotic agents; Z88.0 Allergy status to penicillin; Z88.2 Allergy status to sulfonamides
CPT/HCPCS: 78815; A9552

== ENCOUNTER → 2017-02-13 | Outpatient (CLI) | payer MEDICAID ==
[~2017-02-13] MED LIST changes: +BENA25TA10 PO; -BENA25TA9 PO; +GLIP1TAB49 PO; -GLIP5TAB15 PO; +LEVA1TAB2 PO; -LEVA500T PO; -MELO7.5T6 PO; +MELO7.5T7 PO; -MINO100C PO; +MINO100C4 PO; -VITA400C2 PO; +VITA400C7 PO
--- NOTE | 2017-02-24 00:51 | ECWPNPC ---
PATIENT NAME: DREW MENJIVAR : 1955 GENDER: FEMALE VISIT DATE: 02/13/2017 DISCHARGE DATE: 02/13/17740 VISIT LOCKED DATE TIME: PHYSICIAN: SHAYLA DAN RESOURCE: SHAYLA DAN REASON FOR APPOINTMENT 1. POST PROCEDURE HISTORY OF PRESENT ILLNESS HISTORY OF PRESENT ILLNESS: PAIN THE PATIENT DESCRIBES THE PAIN... THE PATIENT DESCRIBES THE PAIN... 61 YEAR OLD FEMALE PATIENT WITH HISTORY OF CHRONIC LOW BACK PAIN. PATIENT DESCRIBES THE PAIN ACHING, BURNING, WITH THE PAIN COMING AND GOING WITH A PAIN SCORE OF 5/10. PATIENT IS CURRENTLY USING GABAPENTIN, MELOXICAM, AND CYMBALTA WHICH SHE STATES KEEPS HER MOBILE AND FUNCTIONAL. PATIENT STATES THAT ANY TYPE OF MOVEMENT INCREASES THE PAIN IN HER LOWER BACK AND AT THIS TIME REST AND INTERVENTIONS AID IN PAIN RELIEF. PATIENT DENIES UNEXPLAINABLE WEIGHT LOSS, FEVER, CHILLS, NEW CHANGES ON HER URINARY OR BOWEL CONTROL. FALL RISK SCREENING: SCREENING :NO FALLS IN THE PAST YEAR :NO FALLS IN THE PAST YEAR SCREENING :NO FALLS IN THE PAST YEAR :NO FALLS IN THE PAST YEAR CURRENT MEDICATIONS TAKING VITAMIN C 500 MG TABLET 1 TAB(S) ORALLY DAILY, NOTES: 630 PM TAKING VITAMIN E 400 UNIT CAPSULE 1 CAP(S) ORALLY DAILY, NOTES: 2 NIGHTS AGO TAKING GLUCOPHAGE 500 MG TABLET 4 TABLETS ORALLY ONCE A DAY, NOTES: 2 NIGHTS AGO TAKING GLUCOTROL 5 MG TABLET 1 TABLET ORALLY ONCE A DAY, NOTES: YESTERDAY AM TAKING CALCIUM 1000 + D 1000-800 MG-UNIT TABLET 1 TABLET ORALLY ONCE A DAY, NOTES: YESTERDAY AM TAKING INVOKANA 300 MG TABLET 1 TABLET ORALLY ONCE A DAY, NOTES: YESTERDAY AM TAKING GABAPENTIN 300 MG CAPSULE 1 CAPSULE ORALLY TID, NOTES: NOON YESTERDAY TAKING ATORVASTATIN CALCIUM 20 MG TABLET 1 TABLET ORALLY ONCE A DAY, NOTES: YESTERDAY AM TAKING MELOXICAM 7.5 MG TABLET 1 TABLET ORALLY BID, NOTES: YESTERDAY AM TAKING MELATONIN 5 MG TABLET 1 TABLET AT BEDTIME NEEDED WITH FOOD ORALLY ONCE A DAY, NOTES: 2-3 NIGHTS AGO TAKING MULTIVITAMIN ADULT - TABLET 1 ORALLY DAILY TAKING BIOTIN 5000 5 MG CAPSULE 1 CAPSULE ORALLY ONCE A DAY TAKING CRANBERRY FRUIT 405 MG CAPSULE 2 TAB ORALLY BID NOT-TAKING TURMERIC 500 MG CAPSULE ORALLY DAILY NOT-TAKING PREDNISOLONE NOT-TAKING CYMBALTA 30 MG CAPSULE DELAYED RELEASE PARTICLES 1 CAPSULE ORALLY WITH FOOD TWICE A DAY FOR PAIN, NOTES: NEVER GOT APPROVED MEDICATION LIST REVIEWED AND RECONCILED WITH THE PATIENT PAST MEDICAL HISTORY NIDDM WITH 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 HYPERLIPIDEMIA BREAST CANCER LEFT 2016 ER POS CHEMO AND RADIATION LYMPHEDEMA LEFT ARM POST MASTECTOMY DDD SPINE SEES PAIN CLINIC ALLERGIES FLAGYL: SWELLING: ALLERGY FOSAMAX: SENSATION OF THROAT SWELLING: ALLERGY PENICILLIN (FOR ALLERGIES USE ONLY): SWELLING: ALLERGY SULFA (FOR ALLERGY USE ONLY): SWELLING: ALLERGY SURGICAL HISTORY CARDIAC 1956 LEFT MASTECTOMY 2016 LEFT BREAST IMPLANT 1979EFT BREAST IMPLANT REMOVED HYSTERECTOMY 1978 INFUSA PORT RIGHT 2016 FAMILY HISTORY FATHER: CORONARY HEART DISEASE MOTHER: NO KNOWN MEDICAL PROBLEMS SIBLINGS: SKIN CANCER SISTER,BROTHER LIVER CANCER MATERNAL AUNT: OVARIAN CANCER 1 SON(S) - HEALTHY. BROTHER OF LIVER CIRRHOSIS AND CANCER. BROTHER WITH DIABETES. NO BREAST OR COLON CANCER IN FAMILY. SOCIAL HISTORY GENERAL: TOBACCO USE HOW LONG HAS IT BEEN SINCE YOU LAST SMOKED?> 10 YEARS ARE YOU A:FORMER SMOKER ALCOHOL SCREENING DID YOU HAVE A DRINK CONTAINING ALCOHOL IN THE PAST YEAR?NO POINTS0 INTERPRETATIONNEGATIVE CAFFEINE VERY LITTLE,SODA OCCASIONALLY. 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 DIET: EATS-KEEPS DIABETES CONTROLLED. EXERCISE: WORKS HARD ON FEET ALL DAY. LIFTS AND MOVES HEAVY ITEMS REGULARLY.. MARITAL STATUS: .. OTHERS AT HOME: LIFE PARTNER. PETS: 3 CATS. GNOSTICIST [id number] GNOSTICIST LANGUAGE LANGUAGES SPOKEN:MALTESE LEARNING BARRIERS / SPECIAL NEEDS CHANGE FROM LAST VISIT?NO BARRIERS TO LEARNING?NO HEARING IMPAIRED?NO VISION IMPAIRED?YES :CORRECTIVE LENSES COGNITIVELY IMPAIRED?NO READINESS TO LEARN?YES LEARNING PREFERENCES?NO LEARNING CAPABILITIES PRESENT?YES EMOTIONAL BARRIERS?NO SPECIAL DEVICES?NO ENGINEERING RESEARCH MANAGER NEEDED?NO DOMESTIC VIOLENCE NONE. HOSPITALIZATION/MAJOR DIAGNOSTIC PROCEDURE NO HOSPITALIZATION HISTORY. REVIEW OF SYSTEMS REVIEWED BY: PROVIDER: , SHAYLA DAN MD . CONSTITUTIONAL: ANY CHANGE IN YOUR MEDICAL CONDITION? NO . CHILLS NO, . FEVER NO, . INFECTION: DO YOU HAVE NEW INFECTIONS? NO, . DO YOU HAVE HISTORY OF MRSA? NO, . MUSCULOSKELETAL: ANY NEW PATTERNS OF PAIN OR NUMBNESS? YES PT REPORTS THAT PAIN IS NOW PRESENT IN BOTH HIPS FOR THE PAST COUPLE OF WEEKS. NO PRECIPITATING EVENTS. PT STATES SHE RAN OUT OF HER MELOXICAM, TOOK SOME ALEVE WHICH HELPS SOME. . GASTROENTEROLOGY: ANY NEW CHANGE IN BOWEL CONTROL? NO . GENITOURINARY: ANY NEW CHANGE IN BLADDER CONTROL? NO, . IS THERE A CHANCE YOU COULD BE ? NO, . HEMATOLOGY/LYMPH: DO YOU TAKE ANY BLOOD THINNERS? (FOR EXAMPLE- COUMADIN, PLAVIX, AGGRENOX, PLATEL, PRADAXA, OR XARELTO) NO, . WHEN WAS YOUR LAST DOSE? DATE: TIME: . NEUROLOGY: HAVE YOU FALLEN IN THE PAST 6 MONTHS? NO, . ANY NEW EXTREMITY NUMBNESS OR WEAKNESS? NO, . CARDIOLOGY: DO YOU HAVE A PACEMAKER OR DEFIBRILLATOR? NO, . RESPIRATORY: HAVE YOU BEEN SICK IN THE PAST WEEK? NO, . FEVER NO, . FLU LIKE SYMPTOMS? NO . COUGH NO . INTEGUMENTARY: DO YOU HAVE ANY RASHES OR OPEN SORES? NO . ALLERGIC/IMMUNO: ARE YOU ALLERGIC TO SHELLFISH OR IV DYE? NO . ANY NEW ALLERGIES? NO . PSYCHIATRIC: DO YOU HAVE THOUGHTS OF HURTING YOURSELF OR SOMEONE ELSE? NO, . ARE YOU ABUSED, NEGLECTED, OR IN AN UNSAFE ENVIRONMENT? NO . ENDOCRINOLOGY: ARE YOU DIABETIC? YES . OTHER: DO YOU NEED ANY PRESCRIPTIONS? YES MELOXICAM . IF YES, PLEASE LIST: ____, ____ . ANY NEW PROBLEMS WITH YOUR MEDICATIONS? NO, NO . WHEN DID YOU LAST EAT? ____, ____ . WHEN DID YOU LAST DRINK? ____, ____ . WHAT DID YOU LAST DRINK? ____, ____ . NAME OF PERSON DRIVING YOU HOME? ____, ____ . DO YOU HAVE ANY OTHER QUESTIONS OR CONCERNS NO, NO . VITAL SIGNS WT 135.2 LBS, HT 63 1/2, BMI 23.57 INDEX, BP 133/65 MM HG, HR 98 /MIN, RR 18 /MIN, TEMP 97.5 F, OXYGEN SAT % 96%, SAFE IN ENV? (Y/N) YES, NA INITIALS SC 15:27, REVIEWED BY: YO. EXAMINATION : PATIENT IS ALERT O X 3 AND COOPERATIVE. BANDS OF TISSUE, RESTRICTION OF MOVEMENT, AND PRESENCE OF TRIGGER POINTS IN THE LOWER BACK AREA. TENDERNESS IN THE LOWER BACK AND PARASPINAL MUSCLE GROUP. MRI DONE ON 08/23/16 SHOWS DISC BULGES AT L3-L4 AND L4-L5, FACET HYPERTROPHY, AND A FATTY INFILTRATION OF THE FILUM TERMINALE. ASSESSMENTS MYALGIA - M79.1 (PRIMARY) SPONDYLOSIS WITHOUT MYELOPATHY OR RADICULOPATHY, LUMBAR REGION - M47.816 SPONDYLOSIS WITHOUT MYELOPATHY OR RADICULOPATHY, LUMBOSACRAL REGION - M47.817 TREATMENT MYALGIA NOTES: WE DISCUSSED SEVERAL ISSUES WITH MRS. MENJIVAR'S PAIN MANAGEMENT CASE. AT THIS TIME THE PATIENT WILL USE IBUPROFEN NEEDED. PATIENT WAS ADVISED TO USE THIS MEDICATION WITH FOOD AND WAS ADVISED TO STOP IF SHE HAS ANY ADVERSE SIDE EFFECTS. MRS. MENJIVAR WAS ADVISED TO TELL ALL OF HER DOCTORS ABOUT USING IBUPROFEN BEFORE STARTING. WE DISCUSSED MOVING FORWARD WITH DIAGNOSTIC TESTS TO CONSIDER RADIOFREQUENCY. AT THIS TIME WE WILL NOT HOLD ANY INTERVENTIONS AT THE PATIENT IS ACTIVELY DOING CHEMOTHERAPY. PATIENT WILL RETURN TO THE CLINIC IN 2 MONTHS AFTER SHE HAS FINISHED HER CHEMOTHERAPY. INSTRUCTIONS WERE GIVEN, QUESTIONS WERE ANSWERED, PATIENT REPORTS UNDERSTANDING AND AGREES WITH THE PLAN. I, HARRIETT MYERS, DOCUMENTED THE ABOVE INFORMATION ACTING A SCRIBE FOR DR. DAN. I HAVE REVIEWED THE ABOVE DOCUMENT, WRITTEN BY HARRIETT ALFREDO AND I VERIFY THAT IT IS ACCURATE. OTHERS START IBUPROFEN TABLET, 800 MG, 1 TABLET WITH FOOD OR MILK, ORALLY, EVERY 6 HOURS NEEDED FOR PAIN MDD3, 30 DAY(S), 50, REFILLS 2 PROCEDURE CODES FA211 ESTABILISHED PATIENT [facility] FACILITY CHARGE G8427 DOC MEDS VERIFIED W/PT OR RE G7530 PAIN ASSESS POS TOOL F/U PLAN DOC DISPOSITION & COMMUNICATION FOLLOW UP 3 WEEKS ELECTRONICALLY SIGNED BY SHAYLA DAN MD ON 02/23/2017 AT 12:20 PM EDT DISCLAIMER : THIS IS A VISIT SUMMARY EXTRACTED FROM THE [employer] CHART. IT IS NOT A COPY OF THE [employer] PROGRESS NOTE. MTDD
== END ==
LOC: M PAIN 15:20
PROVIDERS: ATTEND Anesthesiology
DX: M54.5 Low back pain (principal); G89.29 Other chronic pain; M47.816 Spondylosis without myelopathy or radiculopathy, lumbar region; M47.817 Spondylosis without myelopathy or radiculopathy, lumbosacral region; Z79.84 Long term (current) use of oral hypoglycemic drugs; Z79.899 Other long term (current) drug therapy; Z87.891 Personal history of nicotine dependence; Z88.1 Allergy status to other antibiotic agents; Z88.0 Allergy status to penicillin; Z88.2 Allergy status to sulfonamides; Z88.8 Allergy status to other drugs, medicaments and biological substances

== ENCOUNTER → 2017-03-13 | Outpatient (CLI) | payer MEDICAID ==
--- NOTE | 2017-03-13 14:10 | REP ---
REASON: History of breast carcinoma. Assess for metastatic disease. COMPARISON: None. After the intervenous administration of 21.6 millicuries of technetium 99m MDP, a total body bone scan was obtained. Degenerative type uptake pattern is seen in the shoulders, elbows, hips, knees, hands, wrists, and feet. There is a focal area of increased radionuclide accumulation seen in the cervical spine approximately at the C5 level. No other areas of increased radionuclide accumulation are seen in the axial or appendicular skeleton. IMPRESSION: 1. Degenerative type uptake pattern as described above. 2. Focal increased radionuclide accumulation in the cervical spine of uncertain etiology. Since the patient has a history of breast carcinoma, I would suggest followup with pre and post gadolinium enhanced MRI. Signed by Willi Lagunas DO 03/13/2017 03:47 P
== END ==
LOC: M RAD 09:44
PROVIDERS: ATTEND Internal Medicine Hematology & Oncology
DX: C50.919 Malignant neoplasm of unspecified site of unspecified female breast (principal)

== ENCOUNTER → 2017-04-11 | Outpatient (CLI) | payer MEDICAID ==
[2017-04-11 09:01] LABS: BASO # 0.1 K/mm3 (0.0-0.2); BASO % 0.9 % (0.0-1.0); EOS # 0.2 K/mm3 (0.0-0.50); EOS % 2.8 % (0.0-3.0); MEAN CORPUSCULAR HEMOGLOBIN 31.3 pg (27.0-33.0); MEAN CORPUSCULAR HGB CONC 36.1 g/dl (32.0-36.5); MEAN CORPUSCULAR VOLUME 86.6 fl (80.0-96.0); MONO # 0.5 K/mm3 (0.0-0.8); MONO % 7.7 % (0.0-5.0); NEUTROPHILS # 3.6 K/mm3 (1.8-7.7); NEUTROPHILS % 56.4 % (36.0-66.0); RED CELL DISTRIBUTION WIDTH 14.1 % (11.5-14.5); WHITE BLOOD COUNT 6.3 K/mm3 (4.0-10.0)
[2017-04-11 09:24] LABS: ALBUMIN/GLOBULIN RATIO 1.43 (1.00-1.93); ALKALINE PHOSPHATASE 139 U/L (45-117); ALT/SGPT 22 U/L (12-78); ANION GAP 11 MEQ/L (8-16); AST/SGOT 36 U/L (15-37); BILIRUBIN,TOTAL 1.4 MG/DL (0.2-1.0); BLOOD UREA NITROGEN 12 MG/DL (7-18); CALCIUM LEVEL 9.4 MG/DL (8.8-10.2); CARBON DIOXIDE LEVEL 30 MEQ/L (21-32); CHLORIDE LEVEL 97 MEQ/L (98-107); CREATININE FOR GFR 0.74 MG/DL (0.55-1.02); GLOMERULAR FILTRATION RATE > 60.0 (>45); GLUCOSE, FASTING 215 MG/DL (80-110); SODIUM LEVEL 138 MEQ/L (136-145); TOTAL PROTEIN 6.8 GM/DL (6.4-8.2)
== END ==
LOC: M LAB 08:28
PROVIDERS: ATTEND Internal Medicine Hematology & Oncology
DX: G62.9 Polyneuropathy, unspecified (principal)

== ENCOUNTER → 2017-04-17 | Outpatient (CLI) | payer MEDICAID ==
--- NOTE | 2017-04-17 13:58 | REP ---
CERVICAL SPINE MRI STUDY WITHOUT AND WITH IV GADOLINIUM: HISTORY: Abnormal bone scan. History breast carcinoma. Comparison bone scan is from March 13, 2017. TECHNIQUE: Sagittal and axial T1 and T2-weighted scans are acquired in the usual fashion with and without fat saturation. Sequences include spin echo, turbo spin echo, and STIR imaging sequences. MRI FINDINGS: There is straightening of the normal cervical lordosis. Cervical vertebral body heights are preserved. Alignment is otherwise normal. No bony destructive lesion is seen. There are degenerative spondylosis changes in the cervical spine most pronounced at C4-5, C5-6 and C6-7. Disc space narrowing, anterior and posterior osteophytic ridging are seen at these levels. This is felt to account for the increased uptake in the cervical spine on the recent bone scan. There is no evidence to suggest skeletal metastatic disease. The cervical cord is normal in coarse, caliber and signal intensity on T1 and T2-weighted scans. Craniocervical junction is unremarkable. Axial and sagittal images demonstrate posterior osteophytic ridging and mild uncovertebral spurring bilaterally at C4-5. At C5-6, there are similar changes with more prominent uncovertebral spurring on the left than the right. At C6-7, there is bilateral uncovertebral spurring, again left more prominently than right. Postcontrast enhanced images show no abnormal contrast enhancement. IMPRESSION: Degenerative spondylosis changes. No evidence to suggest bony metastatic disease. Degenerative disc changes are noted in the mid cervical spine from C4-5 through C6/C7. Signed by Arthur Contreras MD 04/17/2017 02:13 P
== END ==
LOC: M RAD 12:29
PROVIDERS: ATTEND Internal Medicine Hematology & Oncology
DX: G62.9 Polyneuropathy, unspecified (principal); C50.212 Malignant neoplasm of upper-inner quadrant of left female breast
CPT/HCPCS: 72156; A9576

== ENCOUNTER → 2017-04-21 | Outpatient (CLI) | payer MEDICAID ==
--- NOTE | 2017-05-08 23:59 | ECWPNPC ---
PATIENT NAME: DREW MENJIVAR : 1955 GENDER: FEMALE VISIT DATE: 04/21/2017 DISCHARGE DATE: 04/21/17 1302 VISIT LOCKED DATE TIME: PHYSICIAN: SHAYLA DAN RESOURCE: SHAYLA DAN REASON FOR APPOINTMENT 1. BACK HISTORY OF PRESENT ILLNESS HISTORY OF PRESENT ILLNESS: PAIN THE PATIENT DESCRIBES THE PAIN... 61 YEAR OLD FEMALE PATIENT WITH HISTORY OF THORACIC AND LUMBAR PAIN. PATIENT DESCRIBES THE PAIN IF SOMEONE IS STANDING ON HER BACK. PATIENT HAS A PAIN SCORE OF 6.5/10 AT TODAY'S VISIT. PATIENT IS CURRENTLY USING GABAPENTIN AND IBUPROFEN WHICH SHE STATES THAT THE MEDICATIONS KEEP HER BOTH MOBILE AND FUNCTIONAL. MRS. MENJIVAR ALSO REPORTS THAT ANY TYPE OF MOVEMENT INCREASES HER PAIN IN HER LOWER BACK AND AT THIS TIME; REST AND INTERVENTIONS AID IN HER PAIN RELIEF. PATIENT DENIES UNEXPLAINABLE WEIGHT LOSS, FEVER, CHILLS, NEW CHANGES ON HER URINARY OR BOWEL CONTROL. FALL RISK SCREENING: SCREENING :NO FALLS IN THE PAST YEAR CURRENT MEDICATIONS TAKING IBUPROFEN 800 MG TABLET 1 TABLET WITH FOOD OR MILK ORALLY EVERY 6 HOURS NEEDED FOR PAIN MDD3 TAKING VITAMIN C 500 MG TABLET 1 TAB(S) ORALLY DAILY, NOTES: 630 PM TAKING VITAMIN E 400 UNIT CAPSULE 1 CAP(S) ORALLY DAILY, NOTES: 2 NIGHTS AGO TAKING GLUCOPHAGE 500 MG TABLET 4 TABLETS ORALLY ONCE A DAY, NOTES: 2 NIGHTS AGO TAKING GLUCOTROL 5 MG TABLET 1 TABLET ORALLY ONCE A DAY, NOTES: YESTERDAY AM TAKING CALCIUM 1000 + D 1000-800 MG-UNIT TABLET 1 TABLET ORALLY ONCE A DAY, NOTES: YESTERDAY AM TAKING INVOKANA 300 MG TABLET 1 TABLET ORALLY ONCE A DAY, NOTES: YESTERDAY AM TAKING GABAPENTIN 400 MG CAPSULE 1 CAPSULE ORALLY TID, NOTES: NOON YESTERDAY TAKING ATORVASTATIN CALCIUM 20 MG TABLET 1 TABLET ORALLY ONCE A DAY, NOTES: YESTERDAY AM TAKING MELATONIN 5 MG TABLET 1 TABLET AT BEDTIME NEEDED WITH FOOD ORALLY ONCE A DAY, NOTES: 2-3 NIGHTS AGO TAKING HAIR SKIN & NAILS GUMMIES 1250-7.5-7.5 MCG-MG-UNT TABLET CHEWABLE ORALLY TAKING CRANBERRY FRUIT 405 MG CAPSULE 2 TAB ORALLY BID NOT-TAKING MELOXICAM 7.5 MG TABLET 1 TABLET ORALLY BID, NOTES: YESTERDAY AM NOT-TAKING MULTIVITAMIN ADULT - TABLET 1 ORALLY DAILY NOT-TAKING BIOTIN 5000 5 MG CAPSULE 1 CAPSULE ORALLY ONCE A DAY NOT-TAKING TURMERIC 500 MG CAPSULE ORALLY DAILY NOT-TAKING PREDNISOLONE NOT-TAKING CYMBALTA 30 MG CAPSULE DELAYED RELEASE PARTICLES 1 CAPSULE ORALLY WITH FOOD TWICE A DAY FOR PAIN, NOTES: NEVER GOT APPROVED MEDICATION LIST REVIEWED AND RECONCILED WITH THE PATIENT PAST MEDICAL HISTORY NIDDM WITH 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 CONSTITUTIONAL: ANY CHANGE IN YOUR MEDICAL CONDITION? NO . CHILLS NO . FEVER NO . INFECTION: DO YOU HAVE NEW INFECTIONS? NO . DO YOU HAVE HISTORY OF MRSA? NO . MUSCULOSKELETAL: ANY NEW PATTERNS OF PAIN OR NUMBNESS? YES PT REPORTS A PAIN/PRESSURE RIGHT UNDER HER BUTTOCKS ANY TIME SHE WALKS OR BENDS. THIS STARTED A COUPLE OF WEEKS AGO. NO PRECIPITATING EVENTS THAT PT CAN RECALL. . GASTROENTEROLOGY: ANY NEW CHANGE IN BOWEL CONTROL? NO . GENITOURINARY: ANY NEW CHANGE IN BLADDER CONTROL? NO . IS THERE A CHANCE YOU COULD BE ? NO . HEMATOLOGY/LYMPH: DO YOU TAKE ANY BLOOD THINNERS? (FOR EXAMPLE- COUMADIN, PLAVIX, AGGRENOX, PLATEL, PRADAXA, OR XARELTO) NO . WHEN WAS YOUR LAST DOSE? DATE: TIME: . NEUROLOGY: HAVE YOU FALLEN IN THE PAST 6 MONTHS? NO . ANY NEW EXTREMITY NUMBNESS OR WEAKNESS? NO . CARDIOLOGY: DO YOU HAVE A PACEMAKER OR DEFIBRILLATOR? NO . RESPIRATORY: HAVE YOU BEEN SICK IN THE PAST WEEK? NO . FEVER NO . FLU LIKE SYMPTOMS? NO . COUGH NO . INTEGUMENTARY: DO YOU HAVE ANY RASHES OR OPEN SORES? NO . ALLERGIC/IMMUNO: ARE YOU ALLERGIC TO SHELLFISH OR IV DYE? NO . ANY NEW ALLERGIES? NO . PSYCHIATRIC: DO YOU HAVE THOUGHTS OF HURTING YOURSELF OR SOMEONE ELSE? NO . ARE YOU ABUSED, NEGLECTED, OR IN AN UNSAFE ENVIRONMENT? NO . ENDOCRINOLOGY: ARE YOU DIABETIC? YES . OTHER: DO YOU NEED ANY PRESCRIPTIONS? YES . IF YES, PLEASE LIST: ____IBUPROFEN . ANY NEW PROBLEMS WITH YOUR MEDICATIONS? NO . WHEN DID YOU LAST EAT? ____ . WHEN DID YOU LAST DRINK? ____ . WHAT DID YOU LAST DRINK? ____ . NAME OF PERSON DRIVING YOU HOME? ____ . DO YOU HAVE ANY OTHER QUESTIONS OR CONCERNS NO . VITAL SIGNS WT 136 LBS, HT 63 1/2, BMI 23.71 INDEX, BP 133/59 MM HG, HR 89 /MIN, RR 18 /MIN, TEMP 97.6 F, OXYGEN SAT % 95%, SAFE IN ENV? (Y/N) YES, REVIEWED BY: YO. EXAMINATION : PATIENT IS ALERT O X 3 AND COOPERATIVE. PATIENT AMBULATES WITH A NORMAL GAIT. PATIENT IS ABLE TO ABDUCT HER UPPER EXTREMITIES PAST HER SHOULDERS. PATIENT HAS TENDERNESS IN THE THORACIC AND LUMBAR PARASPINAL MUSCLE GROUP WITH BANDS OF TISSUES, RESTRICTION OF MOVEMENTS, AND PRESENCE OF TRIGGER POINTS. MRI OF THE LUMBAR SPINE DONE ON 08-23-2016 SHOWS DISC BULGES AT L3-L5 AND FACET ARTHROPATHY CHANGES. MRI OF THE THORACIC SPINE DONE ON 08-23-2016 SHOWS ANTERIOR OSTEOPHYTES AND DEGENERATIVE CHANGES. 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 MENJIVAR'S PAIN MANAGEMENT CASE. AT THIS TIME THE PATIENT WILL CONTINUE WITH THE SAME MEDICATION REGIME BEFORE. PATIENT IS USING GABAPENTIN FOR THE NEUROPATHIC PAIN AND USING IBUPROFEN NEEDED FOR PAIN. WE ARE WAITING FOR CLEARANCE FROM HER DOCTOR TO GO AHEAD AND MOVE FORWARD WITH A DIAGNOSTIC TEST TO EVENTUALLY RECEIVE A RADIOFREQUENCY. PATIENT WILL FOLLOWUP WITH ME IN 1 MONTH TO DISCUSS HER CASE. INSTRUCTIONS WERE GIVEN, QUESTIONS WERE ANSWERED, AND THE PATIENT EXPRESSED UNDERSTANDING AND AGREED WITH THE PLAN. I, IZZY JIMENEZ, DOCUMENTED THE ABOVE INFORMATION ACTING A SCRIBE FOR DR. DAN. I HAVE REVIEWED THE ABOVE DOCUMENT, WRITTEN BY IZZY JIMENEZ SCRIBMerlene AND I VERIFY THAT IT IS ACCURATE. PROCEDURE CODES FA211 ESTABILISHED PATIENT FORMERLY [facility] CHARGE 39073 OFFICE/OUTPATIENT VISIT EST G8427 DOC MEDS VERIFIED W/PT OR RE G8730 PAIN ASSESS POS TOOL F/U PLAN DOC DISPOSITION & COMMUNICATION FOLLOW UP 4 WEEKS ELECTRONICALLY SIGNED BY SHAYLA DAN MD ON 05/08/2017 AT 08:56 PM EDT DISCLAIMER : THIS IS A VISIT SUMMARY EXTRACTED FROM THE [employer] CHART. IT IS NOT A COPY OF THE [employer] PROGRESS NOTE. AGGIED
== END ==
LOC: M PAIN 11:45
PROVIDERS: ATTEND Anesthesiology
DX: M79.1 Myalgia (principal); M54.6 Pain in thoracic spine; M47.814 Spondylosis without myelopathy or radiculopathy, thoracic region; M47.816 Spondylosis without myelopathy or radiculopathy, lumbar region; E11.9 Type 2 diabetes mellitus without complications; E78.5 Hyperlipidemia, unspecified; Z79.84 Long term (current) use of oral hypoglycemic drugs; Z79.899 Other long term (current) drug therapy; Z88.0 Allergy status to penicillin; Z88.1 Allergy status to other antibiotic agents; Z88.2 Allergy status to sulfonamides; Z88.5 Allergy status to narcotic agent; Z85.3 Personal history of malignant neoplasm of breast

== ENCOUNTER → 2017-04-26 | Outpatient (CLI) | payer MEDICAID ==
--- NOTE | 2017-04-27 13:31 | RADONC ---
RADIATION ONCOLOGY FOLLOWUP NOTE DATE: 04/26/2017 CHART NUMBER: [id number] DIAGNOSIS: Left breast cancer. STAGE: IIIA, [id number] ECOG PERFORMANCE STATUS: 0 FOLLOWUP NOTE: Ms. Ferrari is a very pleasant 60-year-old white female with the diagnosis of a stage IIIA, [id number] moderately differentiated invasive ductal carcinoma of the left breast who is presenting to us today for routine followup visit 7 months post completion of external beam radiation therapy. The patient presents today reporting that she is doing quite well with no complaints at this time related to her radiation therapy or disease other than some slight lymphedema of the left upper extremity. The patient has her final Herceptin treatment scheduled tomorrow. The patient's review of systems is positive for some slight lymphedema but is otherwise noncontributory. She denies nausea, vomiting, fevers, chills, night sweats, diplopia, headaches, anxiety or depression, anorexia, weight loss, visual disturbances, chest pain, urinary or bowel difficulties, bone pain, or neurological problems. PHYSICAL EXAMINATION: The patient is a well-developed, well-nourished female in no acute distress. HEENT exam is normocephalic, atraumatic. Extraocular movements are intact. There is no palpable cervical, supraclavicular, infraclavicular, axillary, or inguinal lymphadenopathy present. Lungs are clear to auscultation and percussion. Heart has a regular rate and rhythm. Abdomen is benign with no hepatosplenomegaly, masses, or tenderness. The right breast is free of masses or discharge. Her left chest wall shows some radiation tanning present. There is no evidence of nodularity, ulceration or evidence of recurrent disease. Skeletal examination reveals no tenderness to pressure or percussion of the bony skeleton. Extremities reveal no clubbing, cyanosis, or edema. Neurologic exam is grossly intact, as is the remainder of the physical examination. ASSESSMENT: The patient is clinically JETHRO at this time and will be seen by us again in 6 months for further followup. She will also continue her followup and management with her medical oncologist and other physicians as well. cc: MD Charlee Ruvalcaba MD
== END ==
LOC: M ONCR 15:04
PROVIDERS: ATTEND Radiology Radiation Oncology
DX: C50.212 Malignant neoplasm of upper-inner quadrant of left female breast (principal)

== ENCOUNTER → 2017-05-01 | Outpatient (CLI) | payer MEDICAID ==
--- NOTE | 2017-05-02 15:02 | ECHO ---
DATE OF STUDY: 05/01/2017 REFERRING PHYSICIAN: Dr. Alla Ying INDICATION: Chemotherapy drugs that may affect the heart. HEIGHT: 160 cm. WEIGHT: 68.3 kilograms. 2D MEASUREMENTS: Left atrium: 3.2 cm Aortic root: 2.7 cm Ventricular septum: 0.85 cm Posterior wall: 0.85 cm Left ventricle diastole: 3.7 cm Left ventricle systole: 1.0 cm Inferior vena cava: 1.7 cm DOPPLER MEASUREMENTS: Aortic valve velocity: 163 cm/s Very mild mitral regurgitation. Mitral E velocity: 92.3 cm/s Mitral A velocity: 89.8 cm/s Mitral deceleration time 197 milliseconds Pulmonary artery systolic pressure: 21 mmHg by pulmonary acceleration time method MITRAL ANNULAR TISSUE DOPPLER: E prime lateral: 10.7 cm/s DESCRIPTION: Rhythm was sinus. Image quality was fair. This was a 2D, M-mode, color flow Doppler, and pulse wave Doppler examination and included mitral annular tissue Doppler. CONCLUSIONS: 1. Normal left ventricle internal dimensions and wall thickness. Normal regional left ventricle (LV) wall motion and wall thickening. Normal LV systolic functioning. Left ventricular ejection fraction (LVEF) 60% by visual estimate. Normal LV diastolic dysfunction. 2. No pericardial effusion. 3. Mild aortic valve sclerosis of a three-cusp aortic valve. 4. Otherwise normal appearing echo cardiogram Doppler.
== END ==
LOC: M CARPUL 08:10
PROVIDERS: ATTEND Internal Medicine Hematology & Oncology
DX: C50.919 Malignant neoplasm of unspecified site of unspecified female breast (principal)

== ENCOUNTER → 2017-05-26 | Outpatient (CLI) | payer MEDICAID ==
--- NOTE | 2017-06-08 02:06 | ECWPNPC ---
PATIENT NAME: DREW MENJIVAR : 1955 GENDER: FEMALE VISIT DATE: 05/26/2017 DISCHARGE DATE: 05/26/17 1338 VISIT LOCKED DATE TIME: PHYSICIAN: SHAYLA DAN RESOURCE: SHAYLA DAN REASON FOR APPOINTMENT 1. NECK PAIN HISTORY OF PRESENT ILLNESS HISTORY OF PRESENT ILLNESS: PAIN THE PATIENT DESCRIBES THE PAIN... 61 YEAR OLD FEMALE PATIENT WITH HISTORY OF THORACIC AND LUMBAR PAIN. PATIENT DESCRIBES THE PAIN IF SOMEONE IS STANDING ON HER BACK. PATIENT HAS A PAIN SCORE OF 6.5/10 AT TODAY'S VISIT. PATIENT IS CURRENTLY USING GABAPENTIN AND IBUPROFEN WHICH SHE STATES THAT THE MEDICATIONS KEEP HER BOTH MOBILE AND FUNCTIONAL. MRS. MENJIVAR ALSO REPORTS THAT ANY TYPE OF MOVEMENT INCREASES HER PAIN IN HER LOWER BACK AND AT THIS TIME; REST AND INTERVENTIONS AID IN HER PAIN RELIEF. MRS. MENJIVAR REPORTS BEING DONE WITH CHEMOTHERAPY AT THIS TIME. PATIENT DENIES UNEXPLAINABLE WEIGHT LOSS, FEVER, CHILLS, NEW CHANGES ON HER URINARY OR BOWEL CONTROL. FALL RISK SCREENING: SCREENING :NO FALLS IN THE PAST YEAR CURRENT MEDICATIONS TAKING IBUPROFEN 800 MG TABLET 1 TABLET WITH FOOD OR MILK ORALLY EVERY 6 HOURS NEEDED FOR PAIN MDD3 TAKING VITAMIN C 500 MG TABLET 1 TAB(S) ORALLY DAILY TAKING VITAMIN E 400 UNIT CAPSULE 1 CAP(S) ORALLY DAILY TAKING GLUCOPHAGE 500 MG TABLET 4 TABLETS ORALLY ONCE A DAY TAKING GLUCOTROL 5 MG TABLET 1 TABLET ORALLY ONCE A DAY TAKING CALCIUM 1000 + D 1000-800 MG-UNIT TABLET 1 TABLET ORALLY ONCE A DAY TAKING INVOKANA 300 MG TABLET 1 TABLET ORALLY ONCE A DAY TAKING GABAPENTIN 400 MG CAPSULE 1 CAPSULE ORALLY TID TAKING ATORVASTATIN CALCIUM 20 MG TABLET 1 TABLET ORALLY ONCE A DAY TAKING MELATONIN 5 MG TABLET 1 TABLET AT BEDTIME NEEDED WITH FOOD ORALLY ONCE A DAY TAKING HAIR SKIN & NAILS GUMMIES 1250-7.5-7.5 MCG-MG-UNT TABLET CHEWABLE ORALLY TAKING CRANBERRY FRUIT 405 MG CAPSULE 2 TAB ORALLY BID NOT-TAKING MELOXICAM 7.5 MG TABLET 1 TABLET ORALLY BID, NOTES: YESTERDAY AM NOT-TAKING MULTIVITAMIN ADULT - TABLET 1 ORALLY DAILY NOT-TAKING BIOTIN 5000 5 MG CAPSULE 1 CAPSULE ORALLY ONCE A DAY NOT-TAKING TURMERIC 500 MG CAPSULE ORALLY DAILY NOT-TAKING PREDNISOLONE NOT-TAKING CYMBALTA 30 MG CAPSULE DELAYED RELEASE PARTICLES 1 CAPSULE ORALLY WITH FOOD TWICE A DAY FOR PAIN, NOTES: NEVER GOT APPROVED MEDICATION LIST REVIEWED AND RECONCILED WITH THE PATIENT PAST MEDICAL HISTORY NIDDM WITH 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 HYPERLIPIDEMIA BREAST CANCER LEFT 2016 ER POS CHEMO AND RADIATION LYMPHEDEMA LEFT ARM POST MASTECTOMY DDD SPINE SEES PAIN CLINIC ALLERGIES FLAGYL: SWELLING: ALLERGY FOSAMAX: SENSATION OF THROAT SWELLING: ALLERGY PENICILLIN (FOR ALLERGIES USE ONLY): SWELLING: ALLERGY SULFA (FOR ALLERGY USE ONLY): SWELLING: ALLERGY SURGICAL HISTORY CARDIAC 195 LEFT MASTECTOMY 2016 LEFT BREAST IMPLANT 1979EFT BREAST IMPLANT REMOVED HYSTERECTOMY 1979 INFUSA PORT RIGHT 2016 SOCIAL HISTORY GENERAL: TOBACCO USE ARE YOU A:: FORMER SMOKER , HOW LONG HAS IT BEEN SINCE YOU LAST SMOKED?: > 10 YEARS. ALCOHOL SCREENING DID YOU HAVE A DRINK CONTAINING ALCOHOL IN THE PAST YEAR?NO POINTS0 INTERPRETATIONNEGATIVE CAFFEINE VERY LITTLE,SODA OCCASIONALLY. 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 DIET: EATS-KEEPS DIABETES CONTROLLED. EXERCISE: WORKS HARD ON FEET ALL DAY. LIFTS AND MOVES HEAVY ITEMS REGULARLY.. MARITAL STATUS: .. OTHERS AT HOME: LIFE PARTNER. PETS: 3 CATS. 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 REVIEW OF SYSTEMS REVIEWED BY: PROVIDER: SHAYLA DAN MD . CONSTITUTIONAL: ANY CHANGE IN YOUR MEDICAL CONDITION? YES, PT STATES SHE FINISHED CHEMOTHERAPY 3-4 WEEKS AGO . CHILLS NO . FEVER NO . INFECTION: DO YOU HAVE NEW INFECTIONS? NO . DO YOU HAVE HISTORY OF MRSA? NO . MUSCULOSKELETAL: ANY NEW PATTERNS OF PAIN OR NUMBNESS? YES, BILAT LBP SPREADING FORAWARD AROUND HIPS . GASTROENTEROLOGY: ANY NEW CHANGE IN BOWEL CONTROL? NO . GENITOURINARY: ANY NEW CHANGE IN BLADDER CONTROL? NO . IS THERE A CHANCE YOU COULD BE ? NO . HEMATOLOGY/LYMPH: DO YOU TAKE ANY BLOOD THINNERS? (FOR EXAMPLE- COUMADIN, PLAVIX, AGGRENOX, PLATEL, PRADAXA, OR XARELTO) NO . WHEN WAS YOUR LAST DOSE? DATE: TIME: . NEUROLOGY: HAVE YOU FALLEN IN THE PAST 6 MONTHS? NO . ANY NEW EXTREMITY NUMBNESS OR WEAKNESS? NO . CARDIOLOGY: DO YOU HAVE A PACEMAKER OR DEFIBRILLATOR? NO . RESPIRATORY: HAVE YOU BEEN SICK IN THE PAST WEEK? NO . FEVER NO . FLU LIKE SYMPTOMS? NO . COUGH NO . INTEGUMENTARY: DO YOU HAVE ANY RASHES OR OPEN SORES? NO . ALLERGIC/IMMUNO: ARE YOU ALLERGIC TO SHELLFISH OR IV DYE? NO . ANY NEW ALLERGIES? NO . PSYCHIATRIC: DO YOU HAVE THOUGHTS OF HURTING YOURSELF OR SOMEONE ELSE? NO . ARE YOU ABUSED, NEGLECTED, OR IN AN UNSAFE ENVIRONMENT? NO . ENDOCRINOLOGY: ARE YOU DIABETIC? YES . OTHER: DO YOU NEED ANY PRESCRIPTIONS? YES, IBUPROFEN . IF YES, PLEASE LIST: ____ . ANY NEW PROBLEMS WITH YOUR MEDICATIONS? NO . WHEN DID YOU LAST EAT? ____ . WHEN DID YOU LAST DRINK? ____ . WHAT DID YOU LAST DRINK? ____ . NAME OF PERSON DRIVING YOU HOME? ____ . DO YOU HAVE ANY OTHER QUESTIONS OR CONCERNS NO . VITAL SIGNS WT 135 LBS, HT 63 1/2, BMI 23.54 INDEX, BP 131/90 MM HG, HR 80 /MIN, RR 16 /MIN, TEMP 97.6 F, OXYGEN SAT % 99, REVIEWED BY: EM. EXAMINATION : PATIENT IS ALERT O X 3 AND COOPERATIVE. PATIENT AMBULATES WITH A NORMAL GAIT. PATIENT IS ABLE TO ABDUCT HER UPPER EXTREMITIES PAST HER SHOULDERS. PATIENT HAS TENDERNESS IN THE THORACIC AND LUMBAR PARASPINAL MUSCLE GROUP WITH BANDS OF TISSUES, RESTRICTION OF MOVEMENTS, AND PRESENCE OF TRIGGER POINTS. MRI OF THE LUMBAR SPINE DONE ON 08-23-2016 SHOWS DISC BULGES AT L3-L5 AND FACET ARTHROPATHY CHANGES. MRI OF THE THORACIC SPINE DONE ON 08-23-2016 SHOWS ANTERIOR OSTEOPHYTES AND DEGENERATIVE CHANGES. ASSESSMENTS SPONDYLOSIS OF LUMBAR REGION WITHOUT MYELOPATHY OR RADICULOPATHY - M47.816 (PRIMARY) SPONDYLOSIS OF LUMBOSACRAL REGION WITHOUT MYELOPATHY OR RADICULOPATHY - M47.817 MYALGIA - M79.1 TREATMENT SPONDYLOSIS OF LUMBAR REGION WITHOUT MYELOPATHY OR RADICULOPATHY NOTES: NOTES: WE DISCUSSED SEVERAL ISSUES WITH MRS. MENJIVAR'S PAIN MANAGEMENT CASE. AT THIS TIME THE PATIENT WILL CONTINUE WITH THE SAME MEDICATION REGIME BEFORE. PATIENT IS USING GABAPENTIN FOR THE NEUROPATHIC PAIN AND USING IBUPROFEN NEEDED FOR PAIN. AT THIS TIME WE HAVE RECEIVED CLEARANCE FROM DR. ALDANA TO MOVE FORWARD WITH THE A DIAGNOSTIC FACET BLOCK TO CONSIDER A RADIOFREQUENCY. WE DISCUSSED THE RISKS, BENENFITS, AND RISKS OF THE INJECTION AND THE PATIENT WOULD LIKE TO PROCEED AT THIS TIME. INSTRUCTIONS WERE GIVEN, QUESTIONS WERE ANSWERED, PATIENT REPORTS UNDERSTANDING AND AGREES WITH THE PLAN. IHARRIETT, DOCUMENTED THE ABOVE INFORMATION ACTING A SCRIBE FOR DR. DAN. I HAVE REVIEWED THE ABOVE DOCUMENT, WRITTEN BY HARRIETT ALFREDO AND I VERIFY THAT IT IS ACCURATE. INSTRUCTIONS WERE GIVEN, QUESTIONS WERE ANSWERED, PATIENT REPORTS UNDERSTANDING AND AGREES WITH THE PLAN. IHARRIETT, DOCUMENTED THE ABOVE INFORMATION ACTING A SCRIBE FOR DR. DAN. I HAVE REVIEWED THE ABOVE DOCUMENT, WRITTEN BY HARRIETT ALFREDO AND I VERIFY THAT IT IS ACCURATE. OTHERS REFILL IBUPROFEN TABLET, 800 MG, 1 TABLET WITH FOOD OR MILK, ORALLY, EVERY 6 HOURS NEEDED FOR PAIN MDD3, 30 DAY(S), 50, REFILLS 2 REFILL GABAPENTIN CAPSULE, 400 MG, 1 CAPSULE, ORALLY, TID FOR PAIN, 30 DAYS, 90, REFILLS 2 PROCEDURE CODES FA211 ESTABILISHED PATIENT [facility] CHARGE G8427 DOC MEDS VERIFIED W/PT OR RE G8730 PAIN ASSESS POS TOOL F/U PLAN DOC DISPOSITION & COMMUNICATION FOLLOW UP LFBD #1 AFTER APPROVAL ELECTRONICALLY SIGNED BY SHAYLA DAN MD ON 06/05/2017 AT 01:51 PM EDT DISCLAIMER : THIS IS A VISIT SUMMARY EXTRACTED FROM THE [employer] CHART. IT IS NOT A COPY OF THE [employer] PROGRESS NOTE. MTDD
== END ==
LOC: M PAIN 13:00
PROVIDERS: ATTEND Anesthesiology
DX: M47.816 Spondylosis without myelopathy or radiculopathy, lumbar region (principal); M47.817 Spondylosis without myelopathy or radiculopathy, lumbosacral region; M79.1 Myalgia; M54.2 Cervicalgia; M54.5 Low back pain; M54.6 Pain in thoracic spine; G89.29 Other chronic pain; E11.9 Type 2 diabetes mellitus without complications; Z79.84 Long term (current) use of oral hypoglycemic drugs; Z79.899 Other long term (current) drug therapy; Z87.891 Personal history of nicotine dependence; Z88.8 Allergy status to other drugs, medicaments and biological substances; Z88.0 Allergy status to penicillin; Z88.2 Allergy status to sulfonamides; Z85.3 Personal history of malignant neoplasm of breast

== ENCOUNTER → 2017-08-04 | Outpatient (CLI) | payer MEDICAID ==
--- NOTE | 2017-08-05 06:51 | ECHO ---
DATE OF PROCEDURE: 08/04/2017 DATE OF : 1955 AGE: 62. REFERRING PROVIDER: Dr. Alla Ying PATIENT LOCATION: Outpatient REASON FOR THE ECHOCARDIOGRAM: Chemotherapy drug monitoring. 2-D MEASUREMENTS: IVS: 0.9 cm LV: 3.4 cm LVPW: 0.9 cm LA: 3.3 cm Aorta: 2.3 cm IVC: 1.4 cm DOPPLER MEASUREMENTS: Peak velocity across the aortic valve: 1.9 m/s Peak velocity across the LVOT: 0.8 m/s Mitral E: 0.8, Mitral A: 1.1 with a ratio of 0.8 2-D COMMENTS: 1. Normal left ventricular size, wall thickness, and normal global left ventricular systolic function. The estimated global left ventricular ejection fraction is 60-65%. 2. Normal left atrium. Normal right atrium and right ventricle. 3. The atrial septum appeared to be normal without evidence of defect or shunt. 4. Normal aortic root. 5. Trace pericardial effusion seen, no evidence of cardiac tamponade. 6. Mildly calcified aortic valve, leaflet excursion appeared to be normal. Mildly calcified mitral annulus with normal anterior mitral valve leaflet motion. Normal tricuspid valve. The pulmonic valve and proximal pulmonary artery branches were not well visualized. 7. The inferior vena cava was normal in size, central venous pressure is most likely normal. DOPPLER: It detects trace mitral regurgitation. Abnormal relaxation pattern was noted across the mitral valve leaflets and mitral valve annulus consistent with impaired relaxation. IMPRESSION: 1. Normal global left ventricular systolic function. There were some features of left ventricular diastolic dysfunction manifested by abnormal relaxation. 2. Aortic valve sclerosis with probably trivial aortic stenosis but no aortic regurgitation. Could not rule out a bicuspid aortic valve. Calcification noted on the aortic valve from unclear etiology, patient may benefit from a transesophageal echocardiogram particularly if there is any history of transient ischemic attack (TIA)/cerebrovascular accident (CVA). 3. Mitral annulus calcification with trace mitral regurgitation. 4. Trace pericardial effusion noted, no evidence of cardiac tamponade.
== END ==
LOC: M CARPUL 09:15
PROVIDERS: ATTEND Internal Medicine Hematology & Oncology
DX: C50.212 Malignant neoplasm of upper-inner quadrant of left female breast (principal); G62.9 Polyneuropathy, unspecified

== ENCOUNTER → 2017-08-22 | Day surgery (SDC) | payer MEDICAID ==
[~2017-08-22] VITALS: Ht 161.3 cm; Wt 55.5 kg
[~2017-08-22] MED LIST changes: +INVO300T PO; +LIDOCAINE 2% INJ 100 MG/5 ML SDV (FOR ANES.) As Ordered ONE; +LR 1,000 ML IV ONE; +PROPOFOL 200 MG/20 ML VIAL As Ordered ONE; +SYST1SOL; +VICT18IN SC
--- NOTE | 2017-08-22 16:02 | ROOR ---
Patient Name: Estrellita Ferrari Procedure Date: 08/22/2017 3:13 PM Date of : 1955 Age: 62 Room: [facility] Gender: Female Note Status: Finalized Procedure: Colonoscopy Indications: Screening for colorectal malignant neoplasm, This is the patient's first colonoscopy Providers: Tanvir Wilde MD Referring MD: Charlee Glass MD Requesting Provider: Medicines: Monitored Anesthesia Care Complications: No immediate complications. Procedure: Pre-Anesthesia Assessment: - Prior to the procedure, a History and Physical was performed, and patient medications and allergies were reviewed. The patient is competent. The risks and benefits of the procedure and the sedation options and risks were discussed with the patient. All questions were answered and informed consent was obtained. Patient identification and proposed procedure were verified by the physician, the nurse and the end stapler in the procedure room. Mental Status Examination: alert and oriented. Airway Examination: normal oropharyngeal airway and neck mobility. CV Examination: regular rate and rhythm. Prophylactic Antibiotics: The patient does not require prophylactic antibiotics. Prior Anticoagulants: The patient has taken no previous anticoagulant or antiplatelet agents. ASA Grade Assessment: II - A patient with mild systemic disease. After reviewing the risks and benefits, the patient was deemed in satisfactory condition to undergo the procedure. The anesthesia plan was to use monitored anesthesia care (MAC). Immediately prior to administration of medications, the patient was re-assessed for adequacy to receive sedatives. The heart rate, respiratory rate, oxygen saturations, blood pressure, adequacy of pulmonary ventilation, and response to care were monitored throughout the procedure. The physical status of the patient was re-assessed after the procedure. The Colonoscope was introduced through the anus and advanced to the cecum, identified by appendiceal orifice and ileocecal valve. The colonoscopy was performed without difficulty. The patient tolerated the procedure well. The quality of the bowel preparation was excellent. Findings: The perianal and digital rectal examinations were normal. A 15 mm polyp was found in the cecum. The polyp was sessile. The polyp was removed with a hot snare. Resection and retrieval were complete. The exam was otherwise without abnormality. Impression: - One 15 mm polyp in the cecum, removed with a hot snare. Resected and retrieved. - The examination was otherwise normal. Recommendation: - Discharge patient to home. - Resume previous diet. - Continue present medications. - Await pathology results. - Telephone endoscopist for pathology results in 1 week. Tanivr Wilde MD 08/22/2017 4:01:45 PM Number of Addenda: 0 Note Initiated On: 08/22/2017 3:13 PM Estimated Blood Loss: Estimated blood loss: none.
[2017-08-22 16:29] VITALS: BP 120/63
== END | disposition home or self-care (01) ==
LOC: M OPP 12:28
PROVIDERS: ATTEND Surgery
DX: Z12.11 Encounter for screening for malignant neoplasm of colon (principal); D12.0 Benign neoplasm of cecum; E78.5 Hyperlipidemia, unspecified; Z86.79 Personal history of other diseases of the circulatory system; E11.9 Type 2 diabetes mellitus without complications; R19.7 Diarrhea, unspecified; I89.0 Lymphedema, not elsewhere classified; M19.90 Unspecified osteoarthritis, unspecified site; M51.9 Unspecified thoracic, thoracolumbar and lumbosacral intervertebral disc disorder; G62.9 Polyneuropathy, unspecified; Z78.0 Asymptomatic menopausal state; R06.83 Snoring; Z85.3 Personal history of malignant neoplasm of breast; Z92.3 Personal history of irradiation; Z92.21 Personal history of antineoplastic chemotherapy; Z90.12 Acquired absence of left breast and nipple; Z87.891 Personal history of nicotine dependence; Z88.8 Allergy status to other drugs, medicaments and biological substances; Z88.0 Allergy status to penicillin; Z88.2 Allergy status to sulfonamides; Z79.899 Other long term (current) drug therapy; Z79.84 Long term (current) use of oral hypoglycemic drugs

== ENCOUNTER → 2017-10-11 | Outpatient (CLI) | payer MEDICAID | LOC: M ONCR 15:27 | DX: C50.212 Malignant neoplasm of upper-inner quadrant of left female breast (principal) | CPT/HCPCS: G0463 ==

== ENCOUNTER → 2017-10-24 | Outpatient (CLI) | payer MEDICAID | LOC: M PAIN 15:00 | DX: M47.815 Spondylosis without myelopathy or radiculopathy, thoracolumbar region (principal); M47.816 Spondylosis without myelopathy or radiculopathy, lumbar region; M47.817 Spondylosis without myelopathy or radiculopathy, lumbosacral region; E11.9 Type 2 diabetes mellitus without complications; E78.5 Hyperlipidemia, unspecified; Z79.84 Long term (current) use of oral hypoglycemic drugs; Z79.899 Other long term (current) drug therapy; Z88.0 Allergy status to penicillin; Z88.8 Allergy status to other drugs, medicaments and biological substances; Z87.891 Personal history of nicotine dependence; Z85.3 Personal history of malignant neoplasm of breast | CPT/HCPCS: G0463 ==

== ENCOUNTER → 2017-12-15 | Outpatient (CLI) | payer MEDICAID | LOC: M PAIN 14:00 | DX: G89.29 Other chronic pain (principal); M54.5 Low back pain; M79.1 Myalgia; E11.42 Type 2 diabetes mellitus with diabetic polyneuropathy; E78.5 Hyperlipidemia, unspecified; Z85.3 Personal history of malignant neoplasm of breast; Z92.21 Personal history of antineoplastic chemotherapy; Z92.3 Personal history of irradiation; Z79.84 Long term (current) use of oral hypoglycemic drugs; Z87.891 Personal history of nicotine dependence; Z88.0 Allergy status to penicillin; Z88.2 Allergy status to sulfonamides; Z88.1 Allergy status to other antibiotic agents; Z88.8 Allergy status to other drugs, medicaments and biological substances; Z90.12 Acquired absence of left breast and nipple | CPT/HCPCS: G0463 ==

== ENCOUNTER → 2018-01-19 | Outpatient (CLI) | payer MEDICAID | LOC: M PAIN 14:15 | DX: G89.29 Other chronic pain (principal); M54.5 Low back pain; M79.1 Myalgia; E11.42 Type 2 diabetes mellitus with diabetic polyneuropathy; E78.5 Hyperlipidemia, unspecified; Z85.3 Personal history of malignant neoplasm of breast; Z92.21 Personal history of antineoplastic chemotherapy; Z92.3 Personal history of irradiation; Z87.891 Personal history of nicotine dependence; Z88.1 Allergy status to other antibiotic agents; Z88.0 Allergy status to penicillin; Z88.2 Allergy status to sulfonamides; Z88.8 Allergy status to other drugs, medicaments and biological substances; Z90.12 Acquired absence of left breast and nipple | CPT/HCPCS: G0463 ==

== ENCOUNTER 2018-01-30 13:16 | Outpatient (CLI) | payer MEDICAID ==
[2018-01-30] MEDS: SODIUM CHLORIDE 0.9% INJ 10 ML SYR IV (13:31)
== END 2018-01-30 13:40 | disposition home or self-care (01) ==
LOC: M INFU 13:16
DX: C50.212 Malignant neoplasm of upper-inner quadrant of left female breast (principal); Z90.12 Acquired absence of left breast and nipple; Z88.8 Allergy status to other drugs, medicaments and biological substances; Z88.0 Allergy status to penicillin; Z88.2 Allergy status to sulfonamides; Z79.899 Other long term (current) drug therapy; Z79.84 Long term (current) use of oral hypoglycemic drugs
CPT/HCPCS: 96523

== ENCOUNTER → 2018-02-21 | Outpatient (CLI) | payer OTHER, MEDICAID | LOC: M PAIN 13:15 | DX: M54.5 Low back pain (principal); G89.29 Other chronic pain; M79.1 Myalgia; E87.5 Hyperkalemia; E11.42 Type 2 diabetes mellitus with diabetic polyneuropathy; Z85.3 Personal history of malignant neoplasm of breast; Z79.899 Other long term (current) drug therapy; Z79.84 Long term (current) use of oral hypoglycemic drugs; Z87.891 Personal history of nicotine dependence | CPT/HCPCS: G0463 ==

== ENCOUNTER 2018-03-05 14:05 | Outpatient (RCR) | payer MEDICAID | END 2018-04-03 | disposition home or self-care (01) | LOC: M PT 14:05 | DX: Z51.89 Encounter for other specified aftercare (principal); M79.1 Myalgia; M54.5 Low back pain; G89.29 Other chronic pain | CPT/HCPCS: 97010 ==

== ENCOUNTER → 2018-03-16 | Outpatient (CLI) | payer MEDICAID ==
[~2018-03-16] MED LIST changes: -ASCO500T PO; -ATOR1TAB21 PO; -BENA25TA10 PO; +BUPIVACAINE HCL 0.25% 10 ML VIAL As Ordered; +BUPIVACAINE HCL 0.25% 30 ML VIAL As Ordered; -CALC600T57 PO; -FAMO1TAB25 PO; -GABA-279 PO; -GLIP1TAB49 PO; -HERC440I2 IV; -INVO300T PO; -LEVA1TAB2 PO; -LIDO2.5C15 EXT; -LIDOCAINE 2% INJ 100 MG/5 ML SDV (FOR ANES.) As Ordered ONE; -LOMO2.5T PO; -LORA10TA2 PO; -LORT5TAB PO; -LR 1,000 ML IV ONE; -MELO7.5T7 PO; -METF-415 PO; -METO10TA2 PO; -MINO100C4 PO; -OMEP20CA3 PO; -POTA10CA PO; -PRED20TA PO; -PROPOFOL 200 MG/20 ML VIAL As Ordered ONE; -SYST1SOL; -TURM500C3 PO; -VALT500T PO; -VICT18IN SC; -VITA400C7 PO
== END ==
LOC: M PAIN 08:30
DX: G89.29 Other chronic pain (principal); M79.1 Myalgia; E11.42 Type 2 diabetes mellitus with diabetic polyneuropathy; E78.5 Hyperlipidemia, unspecified; Z85.3 Personal history of malignant neoplasm of breast; Z92.21 Personal history of antineoplastic chemotherapy; Z92.3 Personal history of irradiation; Z87.891 Personal history of nicotine dependence; Z90.12 Acquired absence of left breast and nipple; Z79.899 Other long term (current) drug therapy; Z88.1 Allergy status to other antibiotic agents; Z88.0 Allergy status to penicillin; Z88.2 Allergy status to sulfonamides; Z88.8 Allergy status to other drugs, medicaments and biological substances; Z79.84 Long term (current) use of oral hypoglycemic drugs
CPT/HCPCS: 20552

== ENCOUNTER 2018-03-27 12:52 | Outpatient (CLI) | payer MEDICAID ==
[~2018-03-27 12:52] MED LIST changes: -BUPIVACAINE HCL 0.25% 10 ML VIAL As Ordered; -BUPIVACAINE HCL 0.25% 30 ML VIAL As Ordered; +SODIUM CHLORIDE 0.9% INJ 10 ML SYR IV
[2018-03-27 14:07] LABS: RHEUMATOID FACTOR QUANT < 10.0 IU/ML (<15.0)
[2018-03-27 14:07] LABS: C REACTIVE PROTEIN QUANTITATIV < 0.30 MG/DL (0.00-0.30)
[2018-03-27 14:49] LABS: ERYTHROCYTE SEDIMENTATION RATE 6 mm/hr (0-30)
[2018-03-28 10:18] LABS: SSA SJOGRENS A <0.2 AI (0.0-0.9); SSB SJOGRENS B <0.2 AI (0.0-0.9)
== END 2018-03-27 13:30 | disposition home or self-care (01) ==
LOC: M INFU 12:52
DX: C50.912 Malignant neoplasm of unspecified site of left female breast (principal); E78.00 Pure hypercholesterolemia, unspecified; E11.9 Type 2 diabetes mellitus without complications; Z79.84 Long term (current) use of oral hypoglycemic drugs; Z79.899 Other long term (current) drug therapy; Z88.0 Allergy status to penicillin; Z88.8 Allergy status to other drugs, medicaments and biological substances; Z87.891 Personal history of nicotine dependence
CPT/HCPCS: 96523

== ENCOUNTER → 2018-05-11 | Outpatient (CLI) | payer MEDICAID | LOC: M PAIN 14:30 | DX: M54.5 Low back pain (principal); M79.1 Myalgia; M47.816 Spondylosis without myelopathy or radiculopathy, lumbar region; E11.40 Type 2 diabetes mellitus with diabetic neuropathy, unspecified; E78.5 Hyperlipidemia, unspecified; Z79.84 Long term (current) use of oral hypoglycemic drugs; Z79.899 Other long term (current) drug therapy; Z88.0 Allergy status to penicillin; Z88.2 Allergy status to sulfonamides; Z88.8 Allergy status to other drugs, medicaments and biological substances; Z90.12 Acquired absence of left breast and nipple; Z92.21 Personal history of antineoplastic chemotherapy; Z92.3 Personal history of irradiation; Z85.3 Personal history of malignant neoplasm of breast; Z87.891 Personal history of nicotine dependence | CPT/HCPCS: G0463 ==

== ENCOUNTER 2018-05-28 08:15 | Outpatient (CLI) | payer MEDICAID ==
[2018-05-28] MEDS: SODIUM CHLORIDE 0.9% INJ 10 ML SYR IV (08:39)
== END 2018-05-28 09:00 | disposition home or self-care (01) ==
LOC: M INFU 08:15
DX: C50.212 Malignant neoplasm of upper-inner quadrant of left female breast (principal); Z88.8 Allergy status to other drugs, medicaments and biological substances; Z88.0 Allergy status to penicillin; Z88.2 Allergy status to sulfonamides
CPT/HCPCS: 96523

== ENCOUNTER → 2018-07-23 | Outpatient (REF) | payer MEDICARE, MEDICAID ==
[~2018-07-23] MED LIST changes: +ASCO500T PO; +ATOR1TAB21 PO; +BENA25TA10 PO; +CALC600T57 PO; +FAMO1TAB25 PO; +GABA-1171 PO; +GLIP5TAB20 PO; +HERC440I2 IV; +INVO300T PO; +KLOR10TA76 PO; +LEVA1TAB2 PO; +LIDO2.5C15 EXT; +LOMO2.5T PO; +LORA-243 PO; +LORT5TAB PO; +MELO7.5T7 PO; +METF-415 PO; +METO10TA2 PO; +MINO100C4 PO; +OMEP20CA3 PO; +PRED20TA PO; -SODIUM CHLORIDE 0.9% INJ 10 ML SYR IV; +SYST1SOL; +TURM500C3 PO; +VALT500T PO; +VICT18IN SC; +VITA400C7 PO
[2018-07-23 13:04] LABS: BASO # 0.1 10^3/uL (0.0-0.2); EOS # 0.4 10^3/uL (0.0-0.50); HEMATOCRIT 38.7 % (36.0-47.0); HEMOGLOBIN 13.7 g/dl (12.0-15.5); LYMPH # 2.4 10^3/uL (1.5-4.5); LYMPH % 29.8 % (24.0-44.0); MEAN CORPUSCULAR HGB CONC 35.4 g/dl (32.0-36.5); MEAN CORPUSCULAR VOLUME 90.4 fl (80.0-96.0); MONO # 0.6 10^3/uL (0.0-0.8); MONO % 7.9 % (0.0-5.0); NEUTROPHILS # 4.6 10^3/uL (1.8-7.7); NEUTROPHILS % 55.9 % (36.0-66.0); PLATELET COUNT, AUTOMATED 187 10^3/uL (150-450); RED BLOOD COUNT 4.28 10^6/uL (4.00-5.40); WHITE BLOOD COUNT 8.2 10^3/uL (4.0-10.0)
[2018-07-23 13:17] LABS: ALBUMIN 3.8 GM/DL (3.2-5.2); ALT/SGPT 26 U/L (12-78); BILIRUBIN,TOTAL 1.4 MG/DL (0.2-1.0); BLOOD UREA NITROGEN 17 MG/DL (7-18); CALCIUM LEVEL 8.6 MG/DL (8.8-10.2); CARBON DIOXIDE LEVEL 31 MEQ/L (21-32); CHLORIDE LEVEL 102 MEQ/L (98-107); CHOLESTEROL LEVEL 159 MG/DL (<200); CHOLESTEROL RISK RATIO 3.533 (<5); CREATININE FOR GFR 0.87 MG/DL (0.55-1.30); GLOMERULAR FILTRATION RATE > 60.0 (>45); GLUCOSE, FASTING 207 MG/DL (70-100); HDL CHOLESTEROL 45 MG/DL (>40); LDL CHOLESTEROL 62 MG/DL (<100); NON-HDL-C 114 MG/DL; POTASSIUM SERUM 4.5 MEQ/L (3.5-5.1); SODIUM LEVEL 139 MEQ/L (136-145); TOTAL PROTEIN 6.8 GM/DL (6.4-8.2); TRIGLYCERIDES LEVEL 261 MG/DL (<150)
[2018-07-23 14:06] LABS: HEMOGLOBIN A1c 6.1 %
== END ==
LOC: M LAB REF 12:00
PROVIDERS: ATTEND Nurse Practitioner Family
DX: Z13.9 Encounter for screening, unspecified (principal); E07.9 Disorder of thyroid, unspecified

== ENCOUNTER → 2018-08-01 | Outpatient (CLI) | payer MEDICAID | LOC: M ONCR 12:49 | DX: C50.212 Malignant neoplasm of upper-inner quadrant of left female breast (principal) | CPT/HCPCS: 99211 ==

== ENCOUNTER 2018-09-24 12:20 | Outpatient (RCR) | payer MEDICARE, MEDICAID | END 2018-10-04 | LOC: M PT 12:20 | PROVIDERS: ATTEND Internal Medicine Hematology & Oncology | DX: Z51.89 Encounter for other specified aftercare (principal); G62.9 Polyneuropathy, unspecified; C50.212 Malignant neoplasm of upper-inner quadrant of left female breast ==

== ENCOUNTER 2018-10-31 14:23 | Outpatient (RCR) | payer MEDICARE, MEDICAID | END 2018-11-01 | LOC: M PT 14:23 | PROVIDERS: ATTEND Internal Medicine Hematology & Oncology | DX: Z51.89 Encounter for other specified aftercare (principal); G62.9 Polyneuropathy, unspecified; C50.212 Malignant neoplasm of upper-inner quadrant of left female breast ==

== ENCOUNTER 2018-11-12 13:07 | Outpatient (RCR) | payer MEDICARE, MEDICAID | END 2018-12-02 | LOC: M PT 13:07 | PROVIDERS: ATTEND Internal Medicine Hematology & Oncology | DX: Z51.89 Encounter for other specified aftercare (principal); G62.9 Polyneuropathy, unspecified; C50.212 Malignant neoplasm of upper-inner quadrant of left female breast ==

== ENCOUNTER → 2018-12-12 | Outpatient (REF) | payer MEDICARE, MEDICAID ==
[2018-12-12 17:14] LABS: ALT/SGPT 31 U/L (12-78); BASO # 0.1 10^3/uL (0.0-0.2); BASO % 0.9 % (0.0-1.0); BILIRUBIN,TOTAL 0.8 MG/DL (0.2-1.0); BLOOD UREA NITROGEN 18 MG/DL (7-18); CALCIUM LEVEL 8.9 MG/DL (8.8-10.2); CARBON DIOXIDE LEVEL 27 MEQ/L (21-32); CHLORIDE LEVEL 103 MEQ/L (98-107); CHOLESTEROL LEVEL 245 MG/DL (<200); CHOLESTEROL RISK RATIO 4.711 (<5); CREATININE FOR GFR 0.66 MG/DL (0.55-1.30); EOS # 0.1 10^3/uL (0.0-0.50); EOS % 2.4 % (0.0-3.0); GLOMERULAR FILTRATION RATE > 60.0 (>45); GLUCOSE, FASTING 111 MG/DL (70-100); HDL CHOLESTEROL 52 MG/DL (>40); HEMATOCRIT 39.1 % (36.0-47.0); HEMOGLOBIN 13.3 g/dl (12.0-15.5); LDL CHOLESTEROL 149 MG/DL (<100); LYMPH # 1.9 10^3/uL (1.5-4.5); MEAN CORPUSCULAR HEMOGLOBIN 30.4 pg (27.0-33.0); MEAN CORPUSCULAR VOLUME 89.5 fl (80.0-96.0); MONO # 0.6 10^3/uL (0.0-0.8); NEUTROPHILS # 3.2 10^3/uL (1.8-7.7); NEUTROPHILS % 54.4 % (36.0-66.0); NON-HDL-C 193 MG/DL; PLATELET COUNT, AUTOMATED 184 10^3/uL (150-450); POTASSIUM SERUM 4.2 MEQ/L (3.5-5.1); RED BLOOD COUNT 4.37 10^6/uL (4.00-5.40); SODIUM LEVEL 139 MEQ/L (136-145); TRIGLYCERIDES LEVEL 218 MG/DL (<150); WHITE BLOOD COUNT 5.8 10^3/uL (4.0-10.0)
== END ==
LOC: M LAB REF 16:41
PROVIDERS: ATTEND Nurse Practitioner Family
DX: E11.69 Type 2 diabetes mellitus with other specified complication (principal); Z13.9 Encounter for screening, unspecified

== ENCOUNTER 2018-12-14 13:17 | Outpatient (RCR) | payer MEDICARE, MEDICAID | END 2019-01-01 | LOC: M PT 13:17 | PROVIDERS: ATTEND Internal Medicine Hematology & Oncology | DX: G62.9 Polyneuropathy, unspecified (principal); C50.212 Malignant neoplasm of upper-inner quadrant of left female breast ==

== ENCOUNTER → 2019-06-03 | Outpatient (RCR) | payer MEDICARE ==
[~2019-06-03] MED LIST changes: -OMEP20CA3 PO; +OMEP20CA4 PO
== END ==
LOC: M PT 05-14 08:58
PROVIDERS: ATTEND Internal Medicine Hematology & Oncology
DX: G62.9 Polyneuropathy, unspecified (principal); C50.212 Malignant neoplasm of upper-inner quadrant of left female breast

== ENCOUNTER → 2019-09-09 | Outpatient (REF) | payer MEDICARE ==
[~2019-09-09] MED LIST changes: +OMEP1CAP73 PO; -OMEP20CA4 PO
[2019-09-09 17:58] LABS: BASO # 0.1 10^3/uL (0.0-0.2); BASO % 1.2 % (0.0-1.0); EOS # 0.3 10^3/uL (0.0-0.5); EOS % 5.2 % (0.0-3.0); HEMATOCRIT 37.6 % (36.0-47.0); HEMOGLOBIN 12.8 g/dl (12.0-15.5); LYMPH # 1.5 10^3/uL (1.5-5.0); LYMPH % 26.8 % (24.0-44.0); MEAN CORPUSCULAR HEMOGLOBIN 30.6 pg (27.0-33.0); MONO # 0.5 10^3/uL (0.0-0.8); MONO % 8.9 % (0.0-5.0); NEUTROPHILS # 3.3 10^3/uL (1.5-8.5); NEUTROPHILS % 57.4 % (36.0-66.0); PLATELET COUNT, AUTOMATED 197 10^3/uL (150-450); RED BLOOD COUNT 4.18 10^6/uL (4.00-5.40); WHITE BLOOD COUNT 5.8 10^3/uL (4.0-10.0)
[2019-09-09 18:08] LABS: ALBUMIN 4.1 GM/DL (3.2-5.2); ALT/SGPT 38 U/L (12-78); BILIRUBIN,TOTAL 0.5 MG/DL (0.2-1.0); BLOOD UREA NITROGEN 13 MG/DL (7-18); CALCIUM LEVEL 9.4 MG/DL (8.8-10.2); CARBON DIOXIDE LEVEL 26 MEQ/L (21-32); CHLORIDE LEVEL 104 MEQ/L (98-107); CHOLESTEROL LEVEL 256 MG/DL (<200); CHOLESTEROL RISK RATIO 5.333 (<5); CREATININE FOR GFR 0.81 MG/DL (0.55-1.30); FREE T4 1.03 NG/DL (0.76-1.46); GLOMERULAR FILTRATION RATE > 60.0 (>45); GLUCOSE, FASTING 185 MG/DL (70-100); HDL CHOLESTEROL 48 MG/DL (>40); LDL CHOLESTEROL 163 MG/DL (<100); NON-HDL-C 208 MG/DL; POTASSIUM SERUM 4.4 MEQ/L (3.5-5.1); SODIUM LEVEL 139 MEQ/L (136-145); TOTAL PROTEIN 7.1 GM/DL (6.4-8.2); TRIGLYCERIDES LEVEL 225 MG/DL (<150)
[2019-09-09 18:11] LABS: TOTAL 25(OH) VITAMIN D 34.2 NG/ML (30.0-100.0)
[2019-09-09 18:23] LABS: HEMOGLOBIN A1c 7.6 %
== END ==
LOC: M LAB REF 17:29
PROVIDERS: ATTEND Nurse Practitioner Family
DX: Z13.9 Encounter for screening, unspecified (principal); R03.0 Elevated blood-pressure reading, without diagnosis of hypertension; E11.43 Type 2 diabetes mellitus with diabetic autonomic (poly)neuropathy; E11.69 Type 2 diabetes mellitus with other specified complication; Z79.84 Long term (current) use of oral hypoglycemic drugs; Z79.899 Other long term (current) drug therapy

== ENCOUNTER → 2019-09-27 | Outpatient (CLI) | payer MEDICARE ==
--- NOTE | 2019-09-27 14:45 | REP ---
WHOLE BODY BONE SCAN: HISTORY: Restaging breast carcinoma. COMPARISON STUDY: March 13, 2017 TECHNIQUE: 22.0 mCi of technetium 99m MDP is injected, and standard whole body bone scan imaging is acquired. SCINTIGRAPHIC FINDINGS: There is a normal distribution of skeletal tracer with uptake in bilateral kidneys and in the urinary bladder. There is mild arthritic uptake pattern in the knees and acromioclavicular joints bilaterally. There is increased uptake in the right manubrial-clavicular articulation which is unchanged from the prior study. Mild degenerative facet uptake is seen in the cervical spine, unchanged. There is no new focus of increased uptake to suggest skeletal metastatic disease. IMPRESSION: No evidence of skeletal metastatic disease. Electronically Signed by Arthur Contreras MD 09/27/2019 06:39 P
== END ==
LOC: M RAD 09:29
PROVIDERS: ATTEND Internal Medicine Hematology & Oncology
DX: I89.0 Lymphedema, not elsewhere classified (principal); C50.212 Malignant neoplasm of upper-inner quadrant of left female breast; G62.9 Polyneuropathy, unspecified

== ENCOUNTER → 2019-09-28 | Outpatient (CLI) | payer MEDICARE ==
[2019-09-28 11:37] LABS: BLOOD UREA NITROGEN 16 MG/DL (7-18); GLOMERULAR FILTRATION RATE > 60.0 (>45)
== END ==
LOC: M LAB 10:39
PROVIDERS: ATTEND Internal Medicine Hematology & Oncology
DX: I89.0 Lymphedema, not elsewhere classified (principal); C50.212 Malignant neoplasm of upper-inner quadrant of left female breast; G62.9 Polyneuropathy, unspecified

== ENCOUNTER → 2019-09-30 | Outpatient (CLI) | payer MEDICARE ==
[~2019-09-30] MED LIST changes: +GASTROGRAFIN SOLUTION 30ML (Q9963) As Ordered ONE; +ISOVUE-370 76% 100ML VIAL (Q9967) As Ordered ONE
--- NOTE | 2019-09-30 12:26 | REP ---
CT of the chest with IV contrast: Comparison is 02/12/2016. There has been interim left mastectomy. There is no axillary adenopathy on the right or the left. There is no mediastinal or hilar adenopathy. There are no lung nodules or masses. There are no infiltrates or pleural effusions. The thoracic aorta is unremarkable. Cardiac size is normal. There is no pericardial effusion. There are no lytic, blastic or destructive skeletal changes. Impression: Essentially negative CT study of the chest. There has been interim left mastectomy. Electronically Signed by Kali Martinez MD 09/30/2019 12:18 P
--- NOTE | 2019-09-30 12:33 | REP ---
CT of the abdomen and pelvis with IV contrast, dual phase imaging of the liver: Comparison is 02/12/2016. The studies performed. Contiguous with the chest CT this same date. The visualized lung mora are unremarkable. The hepatic parenchyma is homogeneous on both phases of the study. There are no hepatic masses. There is no biliary duct dilatation. The gallbladder, pancreas and spleen are unremarkable. The adrenals are unremarkable. The kidneys are unremarkable. The abdominal aorta is unremarkable. There is no periaortic adenopathy or mass. Pelvis: There is no adenopathy or ascites. There is an appendectomy and hysterectomy. This is unchanged. The vaginal cuff is unremarkable. The pelvic bowel loops are unremarkable. The bladder is unremarkable. There are no lytic, blastic or destructive skeletal changes. Impression: The hepatic parenchyma is unremarkable. There is no biliary duct dilatation. There is no ascites. No change from the prior study. Electronically Signed by Kali Martinez MD 09/30/2019 12:25 P
== END ==
LOC: M RAD 07:48
PROVIDERS: ATTEND Internal Medicine Hematology & Oncology
DX: I89.0 Lymphedema, not elsewhere classified (principal); C50.212 Malignant neoplasm of upper-inner quadrant of left female breast; G62.9 Polyneuropathy, unspecified; Z90.12 Acquired absence of left breast and nipple
CPT/HCPCS: 71260; 74177; Q9963; Q9967

== ENCOUNTER → 2019-10-16 | Outpatient (REF) | payer MEDICARE ==
[~2019-10-16] MED LIST changes: -GASTROGRAFIN SOLUTION 30ML (Q9963) As Ordered ONE; -ISOVUE-370 76% 100ML VIAL (Q9967) As Ordered ONE
[2019-10-16 12:38] LABS: MALB URINE SIEMENS 14.1 MG/L; MAU/CREAT RATIO 12.3 MCG/MG (0.0-30.0)
== END ==
LOC: M LAB REF 11:29
PROVIDERS: ATTEND Nurse Practitioner Family
DX: E11.65 Type 2 diabetes mellitus with hyperglycemia (principal)

== ENCOUNTER → 2020-01-30 | Outpatient (REF) | payer MEDICARE ==
[2020-01-30 20:10] LABS: BASO # 0.1 10^3/uL (0.0-0.2); BASO % 0.7 % (0.0-1.0); EOS # 0.2 10^3/uL (0.0-0.5); EOS % 2.4 % (0.0-3.0); HEMATOCRIT 38.7 % (36.0-47.0); HEMOGLOBIN 12.6 g/dl (12.0-15.5); LYMPH # 1.9 10^3/uL (1.5-5.0); LYMPH % 24.9 % (24.0-44.0); MEAN CORPUSCULAR HEMOGLOBIN 28.6 pg (27.0-33.0); MEAN CORPUSCULAR HGB CONC 32.6 g/dl (32.0-36.5); MONO # 0.6 10^3/uL (0.0-0.8); MONO % 8.3 % (0.0-5.0); NEUTROPHILS # 4.8 10^3/uL (1.5-8.5); NEUTROPHILS % 63.4 % (36.0-66.0); PLATELET COUNT, AUTOMATED 207 10^3/uL (150-450); WHITE BLOOD COUNT 7.6 10^3/uL (4.0-10.0)
[2020-01-30 20:51] LABS: ALBUMIN 3.8 GM/DL (3.2-5.2); ALT/SGPT 31 U/L (12-78); BLOOD UREA NITROGEN 14 MG/DL (7-18); CALCIUM LEVEL 9.2 MG/DL (8.8-10.2); CARBON DIOXIDE LEVEL 27 MEQ/L (21-32); CHLORIDE LEVEL 103 MEQ/L (98-107); CHOLESTEROL LEVEL 153 MG/DL (<200); CHOLESTEROL RISK RATIO 3.642 (<5); CREATININE FOR GFR 0.75 MG/DL (0.55-1.30); FREE T4 1.13 NG/DL (0.76-1.46); GLOMERULAR FILTRATION RATE > 60.0 (>45); GLUCOSE, FASTING 162 MG/DL (70-100); HDL CHOLESTEROL 42 MG/DL (>40); LDL CHOLESTEROL 70 MG/DL (<100); NON-HDL-C 111 MG/DL; POTASSIUM SERUM 4.7 MEQ/L (3.5-5.1); SODIUM LEVEL 141 MEQ/L (136-145); TOTAL 25(OH) VITAMIN D 47.4 NG/ML (30.0-100.0); TOTAL PROTEIN 6.7 GM/DL (6.4-8.2); TRIGLYCERIDES LEVEL 207 MG/DL (<150)
== END ==
LOC: M LAB REF 17:18
PROVIDERS: ATTEND Nurse Practitioner Family
DX: R03.0 Elevated blood-pressure reading, without diagnosis of hypertension (principal); Z13.9 Encounter for screening, unspecified; J30.1 Allergic rhinitis due to pollen; M51.9 Unspecified thoracic, thoracolumbar and lumbosacral intervertebral disc disorder; E11.69 Type 2 diabetes mellitus with other specified complication; E11.9 Type 2 diabetes mellitus without complications

== ENCOUNTER 2020-02-04 09:08 | Outpatient (RCR) | payer MEDICARE | END 2020-03-03 | LOC: M PT 09:08 | PROVIDERS: ATTEND Internal Medicine Hematology & Oncology | DX: G62.9 Polyneuropathy, unspecified (principal); C50.212 Malignant neoplasm of upper-inner quadrant of left female breast ==

== ENCOUNTER → 2020-02-28 | Outpatient (CLI) | payer MEDICARE ==
[~2020-02-28] MED LIST changes: +PROHANCE 279.3MG/ML 15ML VIAL As Ordered ONE
--- NOTE | 2020-02-28 15:29 | REP ---
MRI thoracic and lumbar spines: An 02/28/2020. Indication: Breast carcinoma. Metastatic workup. Technique: Multiplanar short and long TR sequences of the thoracic and lumbar spines were performed including post gadolinium imaging. Comparison: 08/23/2016. Findings: Vertebral body alignment is anatomic. No pathologic marrow signal or gadolinium enhancement is present. Incidental note is made of a fatty filum terminalis. There are no areas of focal disc herniation or significant spinal canal / neural foraminal narrowing. No abnormal cord signal is detected. Impression: No acute soft tissue injury of the thoracolumbar spine or evidence of thoracolumbar axial skeletal metastases. No areas of significant spinal canal narrowing/cord compression. Electronically Signed by Alfa Rivera DO 02/28/2020 03:20 P
== END ==
LOC: M RAD 12:59
PROVIDERS: ATTEND Internal Medicine Hematology & Oncology
DX: C50.212 Malignant neoplasm of upper-inner quadrant of left female breast (principal); G62.9 Polyneuropathy, unspecified; I89.0 Lymphedema, not elsewhere classified
CPT/HCPCS: 72157; 72158; A9576

== ENCOUNTER → 2020-03-12 | Outpatient (CLI) | payer MEDICARE ==
[~2020-03-12] MED LIST changes: +GASTROGRAFIN SOLUTION 30ML (Q9963) As Ordered ONE; +ISOVUE-370 76% 100ML VIAL As Ordered ONE; -PROHANCE 279.3MG/ML 15ML VIAL As Ordered ONE
[2020-03-12 09:58] LABS: BLOOD UREA NITROGEN 14 MG/DL (7-18); CREATININE FOR GFR 0.72 MG/DL (0.55-1.30); GLOMERULAR FILTRATION RATE > 60.0 (>45)
--- NOTE | 2020-03-12 14:36 | REP ---
REASON: History of carcinoma of the breast. The latest prior for comparison 09/30/2019. CONTRAST: 100 mL of Isovue 370. Mediastinum and pulmonary willa are again seen to be within normal limits. No mass or adenopathy has developed. There are no pleural or pericardial effusions. Evaluation of the osseous structures shows them to be stable and intact. Evaluation of the lung mora shows no new abnormal nodule, masses, or opacities. IMPRESSION: Stable CT examination of the chest. There is no evidence of acute disease. Electronically Signed by Willi Lagunas DO 03/12/2020 04:58 P
--- NOTE | 2020-03-12 14:57 | REP ---
REASON: History of breast carcinoma. COMPARISON: 09/30/2019, the latest. CONTRAST: 100 mL Isovue 370. The liver, gallbladder, spleen, pancreas, adrenal glands, and kidneys are again seen to be within normal limits. The abdominal aorta is again seen to be within normal limits. Once again, there are multiple borderline para-aortic lymph nodes. Once again, there is central mesenteric adenopathy status quo. The intra-abdominal and intrapelvic bowel loops are again seen to be within normal limits. No free fluid or free air is seen in the abdomen or pelvis. Bone window technique throughout the examination shows the osseous structures to be stable and intact. IMPRESSION: Stable borderline para-aortic lymph nodes and stable central mesenteric adenopathy. There are no acute changes from the prior exam. Electronically Signed by Willi Lagunas DO 03/12/2020 04:58 P
== END ==
LOC: M RAD 08:54
PROVIDERS: ATTEND Internal Medicine Hematology & Oncology
DX: I89.0 Lymphedema, not elsewhere classified (principal); C50.212 Malignant neoplasm of upper-inner quadrant of left female breast; G62.9 Polyneuropathy, unspecified
CPT/HCPCS: 36415; 71260; 74177; 82565; 84520; Q9963; Q9967

== ENCOUNTER 2020-04-28 09:55 | Outpatient (RCR) | payer MEDICARE ==
[~2020-04-28 09:55] MED LIST changes: -GASTROGRAFIN SOLUTION 30ML (Q9963) As Ordered ONE; -ISOVUE-370 76% 100ML VIAL As Ordered ONE
== END 2020-05-04 | disposition home or self-care (01) ==
LOC: M PT 09:55
PROVIDERS: ATTEND Internal Medicine Hematology & Oncology
DX: I89.0 Lymphedema, not elsewhere classified (principal)

== ENCOUNTER → 2020-05-25 | Outpatient (REF) | payer MEDICARE ==
[2020-05-25 13:22] LABS: BASO % 0.7 % (0.0-1.0); EOS # 0.2 10^3/uL (0.0-0.5); EOS % 3.9 % (0.0-3.0); HEMATOCRIT 39.1 % (36.0-47.0); HEMOGLOBIN 12.8 g/dl (12.0-15.5); LYMPH # 1.6 10^3/uL (1.5-5.0); LYMPH % 30.6 % (24.0-44.0); MEAN CORPUSCULAR HEMOGLOBIN 27.5 pg (27.0-33.0); MEAN CORPUSCULAR HGB CONC 32.7 g/dl (32.0-36.5); MEAN CORPUSCULAR VOLUME 84.1 fl (80.0-96.0); MONO # 0.4 10^3/uL (0.0-0.8); MONO % 7.6 % (0.0-5.0); NEUTROPHILS # 3.1 10^3/uL (1.5-8.5); PLATELET COUNT, AUTOMATED 195 10^3/uL (150-450); RED BLOOD COUNT 4.65 10^6/uL (4.00-5.40); WHITE BLOOD COUNT 5.4 10^3/uL (4.0-10.0)
[2020-05-25 13:29] LABS: ALT/SGPT 36 U/L (12-78); BILIRUBIN,TOTAL 1.3 MG/DL (0.2-1.0); BLOOD UREA NITROGEN 15 MG/DL (7-18); CARBON DIOXIDE LEVEL 30 MEQ/L (21-32); CHLORIDE LEVEL 104 MEQ/L (98-107); GLOMERULAR FILTRATION RATE > 60.0 (>45); GLUCOSE, FASTING 155 MG/DL (70-100); POTASSIUM SERUM 4.3 MEQ/L (3.5-5.1); SODIUM LEVEL 140 MEQ/L (136-145)
[2020-05-25 13:30] LABS: ALBUMIN 4.2 GM/DL (3.2-5.2); CHOLESTEROL LEVEL 169 MG/DL (<200); CHOLESTEROL RISK RATIO 3.072 (<5); HDL CHOLESTEROL 55 MG/DL (>40); LDL CHOLESTEROL 89 MG/DL (<100); NON-HDL-C 114 MG/DL; TOTAL PROTEIN 7.4 GM/DL (6.4-8.2); TRIGLYCERIDES LEVEL 125 MG/DL (<150)
[2020-05-25 13:38] LABS: TOTAL 25(OH) VITAMIN D 51.9 NG/ML (30.0-100.0)
[2020-05-25 16:03] LABS: HEMOGLOBIN A1c 7.1 %
== END ==
LOC: M LAB REF 12:40
PROVIDERS: ATTEND Nurse Practitioner Family
DX: R74.8 Abnormal levels of other serum enzymes (principal); R03.0 Elevated blood-pressure reading, without diagnosis of hypertension; E11.69 Type 2 diabetes mellitus with other specified complication; G62.2 Polyneuropathy due to other toxic agents; Z13.9 Encounter for screening, unspecified; Z79.899 Other long term (current) drug therapy

== ENCOUNTER 2020-10-29 15:16 | Outpatient (RCR) | payer MEDICARE | END 2020-11-01 | LOC: M PT 15:16 | PROVIDERS: ATTEND Internal Medicine Hematology & Oncology | DX: G62.9 Polyneuropathy, unspecified (principal); C50.212 Malignant neoplasm of upper-inner quadrant of left female breast ==

== ENCOUNTER → 2020-11-23 | Outpatient (REF) | payer MEDICARE ==
[2020-11-23 13:12] LABS: BASO # 0.1 10^3/uL (0.0-0.2); BASO % 1.3 % (0.0-1.0); EOS # 0.3 10^3/uL (0.0-0.5); EOS % 4.7 % (0.0-3.0); HEMATOCRIT 37.6 % (36.0-47.0); HEMOGLOBIN 11.6 g/dl (12.0-15.5); LYMPH # 2.1 10^3/uL (1.5-5.0); LYMPH % 31.2 % (24.0-44.0); MEAN CORPUSCULAR HEMOGLOBIN 25.5 pg (27.0-33.0); MEAN CORPUSCULAR HGB CONC 30.9 g/dl (32.0-36.5); MEAN CORPUSCULAR VOLUME 82.6 fl (80.0-96.0); MONO # 0.5 10^3/uL (0.0-0.8); MONO % 7.9 % (2.0-8.0); NEUTROPHILS # 3.8 10^3/uL (1.5-8.5); NEUTROPHILS % 54.6 % (36.0-66.0); PLATELET COUNT, AUTOMATED 202 10^3/uL (150-450); RED BLOOD COUNT 4.55 10^6/uL (4.00-5.40); WHITE BLOOD COUNT 6.9 10^3/uL (4.0-10.0)
[2020-11-23 13:41] LABS: ALT/SGPT 22 U/L (12-78); BILIRUBIN,TOTAL 1.1 MG/DL (0.2-1.0); BLOOD UREA NITROGEN 16 MG/DL (7-18); CALCIUM LEVEL 9.5 MG/DL (8.8-10.2); CARBON DIOXIDE LEVEL 29 MEQ/L (21-32); CHLORIDE LEVEL 103 MEQ/L (98-107); CHOLESTEROL LEVEL 175 MG/DL (<200); CHOLESTEROL RISK RATIO 3.723 (<5); GLOMERULAR FILTRATION RATE > 60.0 (>45); GLUCOSE, FASTING 148 MG/DL (70-100); HDL CHOLESTEROL 47 MG/DL (>40); LDL CHOLESTEROL 101 MG/DL (<100); NON-HDL-C 128 MG/DL; POTASSIUM SERUM 4.6 MEQ/L (3.5-5.1); SODIUM LEVEL 138 MEQ/L (136-145); TOTAL PROTEIN 6.9 GM/DL (6.4-8.2); TRIGLYCERIDES LEVEL 133 MG/DL (<150)
[2020-11-23 13:46] LABS: TOTAL 25(OH) VITAMIN D 54.7 NG/ML (30.0-100.0)
== END ==
LOC: M LAB REF 12:06
PROVIDERS: ATTEND Nurse Practitioner Family
DX: R74.8 Abnormal levels of other serum enzymes (principal); R03.0 Elevated blood-pressure reading, without diagnosis of hypertension; Z13.9 Encounter for screening, unspecified; G62.2 Polyneuropathy due to other toxic agents; E11.69 Type 2 diabetes mellitus with other specified complication; E11.9 Type 2 diabetes mellitus without complications

== ENCOUNTER → 2021-01-11 | Outpatient (REF) | payer MEDICARE ==
[~2021-01-11] MED LIST changes: +LIDO1CRE42 EXT; -LIDO2.5C15 EXT
[2021-01-11 19:18] LABS: MALB URINE SIEMENS 40.4 MG/L; MAU/CREAT RATIO 30.6 MCG/MG (0.0-30.0)
== END ==
LOC: M LAB REF 17:00
PROVIDERS: ATTEND Internal Medicine
DX: E11.65 Type 2 diabetes mellitus with hyperglycemia (principal)

== ENCOUNTER → 2021-03-26 | Outpatient (CLI) | payer MEDICARE ==
[~2021-03-26] MED LIST changes: +FAMO10TA50 PO; -FAMO1TAB25 PO
--- NOTE | 2021-03-26 14:30 | REPMRS ---
Patient History The patient states she had a clinical breast exam in September 2020. Patient is postmenopausal and has history of cancer in the left breast at age 60. Family history of ovarian cancer at age 50 or over in maternal aunt. Took estrogen for 33 years. Patient states no breast complaints today. Patient has signed MRS History Sheet. Digital Woman Screen Mammo: March 26, 2021 - Exam #: [id number] Bilateral CC and MLO view(s) were taken. Technologist: Meron Caraballo Technologist Prior study comparison: February 14, 2020, right breast digital mammo screening bilat, performed at [facility]. January 11, 2019, right breast digital mammo screening bilat, performed at [facility]. January 08, 2018, right breast diagnostic unilateral mammo, performed at [facility]. FINDINGS: There are scattered fibroglandular densities. There has been no change in the appearance of the left breast parenchyma in the interval since the prior examination. No mass, architectural distortion, or microcalcific grouping has developed. No suspicious finding. 3-D tomosynthesis shows no additional findings. Assessment: BI-RADS/ACR category 2 mammogram. Benign Findings. Recommendation Routine screening mammogram of the left breast in 1 year. This patient's [facility] Lifetime Breast Cancer RIsk is estimated at %. This mammogram was interpreted with the aid of an FDA-approved computer-aided dectection system. Electronically Signed By: Josse Contreras MD 03/26/21 [id number]
== END ==
LOC: M WHC 12:33
PROVIDERS: ATTEND Internal Medicine Hematology & Oncology
DX: Z12.31 Encounter for screening mammogram for malignant neoplasm of breast (principal); Z85.3 Personal history of malignant neoplasm of breast; Z90.12 Acquired absence of left breast and nipple; Z78.0 Asymptomatic menopausal state; Z80.41 Family history of malignant neoplasm of ovary

== ENCOUNTER 2021-03-29 09:00 | Outpatient (RCR) | payer MEDICARE | END 2021-04-03 | LOC: M PT 09:00 | PROVIDERS: ATTEND Internal Medicine Hematology & Oncology | DX: I97.2 Postmastectomy lymphedema syndrome (principal) ==

== ENCOUNTER 2021-09-27 09:04 | Outpatient (RCR) | payer MEDICARE ==
[~2021-09-27 09:04] MED LIST changes: -KLOR10TA76 PO; +POTA-136 PO
== END 2021-10-04 ==
LOC: M PT 09:04
PROVIDERS: ATTEND Internal Medicine Hematology & Oncology
DX: G62.9 Polyneuropathy, unspecified (principal); C50.212 Malignant neoplasm of upper-inner quadrant of left female breast

== ENCOUNTER 2022-01-05 07:22 | Emergency (ER) | payer MEDICARE ==
[~2022-01-05] VITALS: Ht 160 cm; Wt 56.5 kg
[2022-01-05] MEDS ORDERED: TRUL0.5I (07:36)
[2022-01-05] MEDS ORDERED: OMEP40CA4 (07:36)
[2022-01-05] MEDS ORDERED: COLA100C5 PO (07:36)
[2022-01-05] MEDS ORDERED: FLEET ENEMA PR ONE (10:00)
[2022-01-05 10:29] LABS: BASO # 0.1 10^3/uL (0.0-0.2); BASO % 0.5 % (0.0-1.0); EOS # 0.1 10^3/uL (0.0-0.5); EOS % 1.4 % (0.0-3.0); HEMATOCRIT 41.2 % (36.0-47.0); HEMOGLOBIN 13.4 g/dl (12.0-15.5); LYMPH # 1.9 10^3/uL (1.5-5.0); LYMPH % 18.4 % (24.0-44.0); MEAN CORPUSCULAR HEMOGLOBIN 26.1 pg (27.0-33.0); MEAN CORPUSCULAR HGB CONC 32.5 g/dl (32.0-36.5); MEAN CORPUSCULAR VOLUME 80.3 fl (80.0-96.0); MONO # 0.9 10^3/uL (0.0-0.8); MONO % 8.8 % (2.0-8.0); NEUTROPHILS # 7.3 10^3/uL (1.5-8.5); NEUTROPHILS % 70.6 % (36.0-66.0); PLATELET COUNT, AUTOMATED 218 10^3/uL (150-450); RED BLOOD COUNT 5.13 10^6/uL (4.00-5.40); WHITE BLOOD COUNT 10.3 10^3/uL (4.0-10.0)
[2022-01-05 10:53] LABS: ALBUMIN 3.9 GM/DL (3.2-5.2); ALT/SGPT 14 U/L (12-78); BILIRUBIN,TOTAL 1.7 MG/DL (0.2-1.0); BLOOD UREA NITROGEN 10 MG/DL (7-18); CALCIUM LEVEL 9.7 MG/DL (8.8-10.2); CARBON DIOXIDE LEVEL 28 MEQ/L (21-32); CHLORIDE LEVEL 101 MEQ/L (98-107); GLOMERULAR FILTRATION RATE > 60.0 (>45); GLUCOSE, FASTING 135 MG/DL (70-100); POTASSIUM SERUM 4.2 MEQ/L (3.5-5.1); SODIUM LEVEL 138 MEQ/L (136-145); TOTAL PROTEIN 7.6 GM/DL (6.4-8.2)
[2022-01-05] MEDS: GASTROGRAFIN SOLUTION 30ML PO SCH ×2 (12:35→13:02)
[2022-01-05] MEDS ORDERED: ISOVUE-370 76% 100ML VIAL As Ordered ONE (13:56)
[2022-01-05 15:13] VITALS: BP 121/83
== END 2022-01-05 15:22 | disposition home or self-care (01) ==
LOC: M ED 07:22
DX: R16.1 Splenomegaly, not elsewhere classified (principal); K59.00 Constipation, unspecified; Z85.3 Personal history of malignant neoplasm of breast; Z79.899 Other long term (current) drug therapy; Z79.84 Long term (current) use of oral hypoglycemic drugs; Z88.0 Allergy status to penicillin; Z88.1 Allergy status to other antibiotic agents; Z88.2 Allergy status to sulfonamides; Z88.8 Allergy status to other drugs, medicaments and biological substances; Z87.891 Personal history of nicotine dependence
CPT/HCPCS: 36415; 74176; 74177; 80053; 81001; 85025; 99284; Q9963; Q9967

== ENCOUNTER → 2022-01-14 | Outpatient (CLI) | payer MEDICARE ==
[~2022-01-14] MED LIST changes: +APPL300T4 PO; +COLA100C5 PO; +HAIR1CHW PO; +NITR-67 PO; +OMEGCAP4 PO; +OMEP40CA4; +THIA100TA PO; +TRUL0.5I; +VITA100020 PO; +VITA100093 PO
== END ==
LOC: M LABSMTC 10:17
PROVIDERS: ATTEND Anesthesiology
DX: Z01.812 Encounter for preprocedural laboratory examination (principal); Z20.822 Contact with and (suspected) exposure to COVID-19

== ENCOUNTER 2022-01-19 13:05 | Day surgery (SDC) | payer MEDICARE ==
[~2022-01-19] VITALS: Ht 161.3 cm; Wt 55.1 kg
[~2022-01-19 13:05] MED LIST changes: +NS 1,000 ML IV ONE
[2022-01-19] MEDS ORDERED: propofoL 500 MG/50 ML VIAL As Ordered ONE (13:17)
[2022-01-19] MEDS ORDERED: fentaNYL 100 MCG/2 ML INJECTION As Ordered ONE (13:17)
[2022-01-19 14:50] VITALS: BP 147/63
== END 2022-01-19 15:01 | disposition home or self-care (01) ==
LOC: M OPP 13:05
PROVIDERS: ATTEND Internal Medicine Gastroenterology
DX: K64.0 First degree hemorrhoids (principal); D50.9 Iron deficiency anemia, unspecified; K44.9 Diaphragmatic hernia without obstruction or gangrene; K31.89 Other diseases of stomach and duodenum; Z79.02 Long term (current) use of antithrombotics/antiplatelets; Z79.84 Long term (current) use of oral hypoglycemic drugs; Z79.899 Other long term (current) drug therapy; Z88.0 Allergy status to penicillin; Z88.8 Allergy status to other drugs, medicaments and biological substances; Z92.21 Personal history of antineoplastic chemotherapy; Z87.891 Personal history of nicotine dependence
CPT/HCPCS: 43239; 45378; 88305; J3010

== ENCOUNTER → 2022-02-07 | Outpatient (CLI) | payer MEDICARE ==
[~2022-02-07] MED LIST changes: +HYDR-4571 PO; +MIRA3350 PO; -NS 1,000 ML IV ONE; +SUCR1TAB56 PO
== END ==
LOC: M PLARAD 08:51
PROVIDERS: ATTEND Internal Medicine Hematology & Oncology
DX: C50.212 Malignant neoplasm of upper-inner quadrant of left female breast (principal); G62.9 Polyneuropathy, unspecified; I89.0 Lymphedema, not elsewhere classified; R61 Generalized hyperhidrosis
CPT/HCPCS: 78815; A9552

== ENCOUNTER 2022-02-18 14:08 | Emergency (ER) | payer MEDICARE ==
[~2022-02-18] VITALS: Ht 160 cm; Wt 55.1 kg
[~2022-02-18 14:08] MED LIST changes: -HYDR-4571 PO; -MIRA3350 PO; -SUCR1TAB56 PO
[2022-02-18] MEDS ORDERED: HYDR-4571 PO (14:19)
[2022-02-18] MEDS ORDERED: SUCR1TAB56 PO (14:19)
[2022-02-18] MEDS ORDERED: MORPHINE 4 MG/ML 1ML VIAL/SYRINGE IV ONE (16:30)
[2022-02-18] MEDS ORDERED: NS 500 ML IV ONE (16:30)
[2022-02-18 18:05] LABS: ALBUMIN 3.2 GM/DL (3.2-5.2); ALT/SGPT 17 U/L (12-78); AMYLASE 55 U/L (25-115); BILIRUBIN,DIRECT 0.2 MG/DL (0.0-0.2); BILIRUBIN,TOTAL 0.7 MG/DL (0.2-1.0); BLOOD UREA NITROGEN 11 MG/DL (7-18); CALCIUM LEVEL 9.8 MG/DL (8.8-10.2); CARBON DIOXIDE LEVEL 27 MEQ/L (21-32); CHLORIDE LEVEL 103 MEQ/L (98-107); CREATININE FOR GFR 0.59 MG/DL (0.55-1.30); GLOMERULAR FILTRATION RATE > 60.0 (>45); GLUCOSE, FASTING 130 MG/DL (70-100); LIPASE 293 U/L (73-393); POTASSIUM SERUM 4.4 MEQ/L (3.5-5.1); SODIUM LEVEL 139 MEQ/L (136-145); TOTAL PROTEIN 7.1 GM/DL (6.4-8.2)
[2022-02-18 18:10] LABS: BASO # 0.1 10^3/uL (0.0-0.2); BASO % 0.7 % (0.0-1.0); EOS # 0.2 10^3/uL (0.0-0.5); HEMATOCRIT 34.9 % (36.0-47.0); HEMOGLOBIN 11.6 g/dl (12.0-15.5); LYMPH # 1.6 10^3/uL (1.5-5.0); LYMPH % 20.6 % (24.0-44.0); MEAN CORPUSCULAR HEMOGLOBIN 26.7 pg (27.0-33.0); MEAN CORPUSCULAR HGB CONC 33.2 g/dl (32.0-36.5); MEAN CORPUSCULAR VOLUME 80.4 fl (80.0-96.0); MONO # 0.6 10^3/uL (0.0-0.8); MONO % 7.7 % (2.0-8.0); NEUTROPHILS # 5.2 10^3/uL (1.5-8.5); NEUTROPHILS % 68.6 % (36.0-66.0); PLATELET COUNT, AUTOMATED 317 10^3/uL (150-450); RED BLOOD COUNT 4.34 10^6/uL (4.00-5.40); WHITE BLOOD COUNT 7.6 10^3/uL (4.0-10.0)
[2022-02-18] MEDS ORDERED: MORPHINE 2 MG/ML 1ML VIAL IV ONE (19:00)
[2022-02-18] MEDS ORDERED: FLEET OIL RETENTION ENEMA PR ONE (19:00)
[2022-02-18] MEDS ORDERED: COLA100C5 PO (20:53)
[2022-02-18] MEDS ORDERED: MIRA3350 PO (20:53)
[2022-02-18 21:18] VITALS: BP 139/74
== END 2022-02-18 21:19 | disposition home or self-care (01) ==
LOC: M ED 14:08
DX: K59.00 Constipation, unspecified (principal); R59.1 Generalized enlarged lymph nodes; Z79.899 Other long term (current) drug therapy; Z85.3 Personal history of malignant neoplasm of breast; Z88.0 Allergy status to penicillin; Z88.1 Allergy status to other antibiotic agents; Z88.2 Allergy status to sulfonamides; Z88.8 Allergy status to other drugs, medicaments and biological substances
CPT/HCPCS: 74021; 74176; 80048; 80076; 82150; 83690; 85025; 86850; 86900; 86901; 96361; 96374; 96376; 99284; J2270

== ENCOUNTER → 2022-02-19 | Outpatient (CLI) | payer MEDICARE ==
[~2022-02-19] MED LIST changes: +HYDR-4571 PO; +MIRA3350 PO; +PROHANCE 279.3MG/ML 5ML VIAL As Ordered ONE; +SUCR1TAB56 PO
== END ==
LOC: M RAD 10:05
PROVIDERS: ATTEND Internal Medicine Hematology & Oncology
DX: R61 Generalized hyperhidrosis (principal); I89.0 Lymphedema, not elsewhere classified; C50.212 Malignant neoplasm of upper-inner quadrant of left female breast; G62.9 Polyneuropathy, unspecified
CPT/HCPCS: 70553; A9576

== ENCOUNTER → 2022-02-21 | Outpatient (CLI) | payer MEDICARE ==
[~2022-02-21] MED LIST changes: +ISOVUE-370 76% 100ML VIAL As Ordered ONE; -PROHANCE 279.3MG/ML 5ML VIAL As Ordered ONE
== END ==
LOC: M RAD 15:39
PROVIDERS: ATTEND Internal Medicine Hematology & Oncology
DX: C50.212 Malignant neoplasm of upper-inner quadrant of left female breast (principal); R61 Generalized hyperhidrosis; I89.0 Lymphedema, not elsewhere classified; G62.9 Polyneuropathy, unspecified
CPT/HCPCS: 71260; Q9967

== ENCOUNTER → 2022-03-03 | Outpatient (CLI) | payer MEDICARE ==
[~2022-03-03] MED LIST changes: +CYCL5TAB PO; -ISOVUE-370 76% 100ML VIAL As Ordered ONE; +LIDOCAINE 1% MDV 20ML VIAL As Ordered ONE
[2022-03-03 11:00] VITALS: BP 132/66
== END ==
LOC: M IRPRO 08:02
PROVIDERS: ATTEND Internal Medicine Hematology & Oncology
DX: R61 Generalized hyperhidrosis (principal); I89.0 Lymphedema, not elsewhere classified; C50.212 Malignant neoplasm of upper-inner quadrant of left female breast; G62.9 Polyneuropathy, unspecified

== ENCOUNTER → 2022-03-28 | Outpatient (CLI) | payer MEDICARE ==
[~2022-03-28] MED LIST changes: -LIDOCAINE 1% MDV 20ML VIAL As Ordered ONE
== END ==
LOC: M WHC 10:14
PROVIDERS: ATTEND Internal Medicine Hematology & Oncology
DX: Z12.31 Encounter for screening mammogram for malignant neoplasm of breast (principal); Z85.3 Personal history of malignant neoplasm of breast; Z90.12 Acquired absence of left breast and nipple

== ENCOUNTER 2022-03-29 08:59 | Outpatient (RCR) | payer MEDICARE | END 2022-04-03 | LOC: M PT 08:59 | PROVIDERS: ATTEND Internal Medicine Hematology & Oncology | DX: G62.9 Polyneuropathy, unspecified (principal); C50.212 Malignant neoplasm of upper-inner quadrant of left female breast ==

== ENCOUNTER → 2022-04-25 | Outpatient (CLI) | payer MEDICARE | LOC: M CARPUL 10:12 | PROVIDERS: ATTEND Internal Medicine Hematology & Oncology | DX: Z79.899 Other long term (current) drug therapy (principal); I70.0 Atherosclerosis of aorta ==

== ENCOUNTER → 2022-07-06 | Outpatient (CLI) | payer MEDICARE ==
[~2022-07-06] MED LIST changes: +GASTROGRAFIN SOLUTION 30ML (Q9963) As Ordered ONE; +ISOVUE-370 76% 100ML VIAL As Ordered ONE
== END ==
LOC: M RAD 13:25
PROVIDERS: ATTEND Internal Medicine Hematology & Oncology
DX: C85.10 Unspecified B-cell lymphoma, unspecified site (principal); R61 Generalized hyperhidrosis; I89.0 Lymphedema, not elsewhere classified; C50.212 Malignant neoplasm of upper-inner quadrant of left female breast; G62.9 Polyneuropathy, unspecified
CPT/HCPCS: 71260; 74177; Q9963; Q9967

== ENCOUNTER → 2022-08-08 | Outpatient (CLI) | payer MEDICARE ==
[~2022-08-08] MED LIST changes: -GASTROGRAFIN SOLUTION 30ML (Q9963) As Ordered ONE; -ISOVUE-370 76% 100ML VIAL As Ordered ONE
== END ==
LOC: M PLARAD 11:01
PROVIDERS: ATTEND Internal Medicine Hematology & Oncology
DX: C50.212 Malignant neoplasm of upper-inner quadrant of left female breast (principal); C85.10 Unspecified B-cell lymphoma, unspecified site; R61 Generalized hyperhidrosis; I89.0 Lymphedema, not elsewhere classified
CPT/HCPCS: 78815; A9552

== ENCOUNTER 2022-09-28 12:36 | Outpatient (RCR) | payer MEDICARE | END 2022-10-04 | LOC: M PT 12:36 | PROVIDERS: ATTEND Internal Medicine Hematology & Oncology | DX: G62.9 Polyneuropathy, unspecified (principal); C50.212 Malignant neoplasm of upper-inner quadrant of left female breast ==

== ENCOUNTER → 2022-10-03 | Outpatient (CLI) | payer MEDICARE | LOC: M PLARAD 13:05 | PROVIDERS: ATTEND Internal Medicine Hematology & Oncology | DX: C85.10 Unspecified B-cell lymphoma, unspecified site (principal); C50.212 Malignant neoplasm of upper-inner quadrant of left female breast; I70.0 Atherosclerosis of aorta; I25.10 Atherosclerotic heart disease of native coronary artery without angina pectoris; Z90.12 Acquired absence of left breast and nipple; Z95.828 Presence of other vascular implants and grafts; R16.2 Hepatomegaly with splenomegaly, not elsewhere classified | CPT/HCPCS: 78815; A9552 ==

== ENCOUNTER → 2022-10-13 | Outpatient (CLI) | payer MEDICARE ==
[~2022-10-13] MED LIST changes: +TRUL0.5I SC; +VALA500T5 PO; +VITA-158 PO; +VITA30005 SL
== END ==
LOC: M ONCR 08:45
PROVIDERS: ATTEND General Practice
DX: C83.39 Diffuse large B-cell lymphoma, extranodal and solid organ sites (principal); E11.9 Type 2 diabetes mellitus without complications; E78.5 Hyperlipidemia, unspecified; K21.9 Gastro-esophageal reflux disease without esophagitis; Z79.84 Long term (current) use of oral hypoglycemic drugs; Z79.85 Long-term (current) use of injectable non-insulin antidiabetic drugs; Z79.899 Other long term (current) drug therapy; Z80.0 Family history of malignant neoplasm of digestive organs; Z80.1 Family history of malignant neoplasm of trachea, bronchus and lung; Z80.8 Family history of malignant neoplasm of other organs or systems; Z85.3 Personal history of malignant neoplasm of breast; Z87.74 Personal history of (corrected) congenital malformations of heart and circulatory system; Z87.891 Personal history of nicotine dependence; Z88.0 Allergy status to penicillin; Z88.1 Allergy status to other antibiotic agents; Z88.2 Allergy status to sulfonamides; Z88.8 Allergy status to other drugs, medicaments and biological substances; Z90.12 Acquired absence of left breast and nipple; Z90.710 Acquired absence of both cervix and uterus; Z90.79 Acquired absence of other genital organ(s); Z92.21 Personal history of antineoplastic chemotherapy; Z92.3 Personal history of irradiation

== ENCOUNTER 2022-10-20 10:16 | Outpatient (RCR) | payer MEDICARE | END 2022-11-01 | LOC: M ONCR 10:16 | PROVIDERS: ATTEND General Practice | DX: C83.39 Diffuse large B-cell lymphoma, extranodal and solid organ sites (principal) ==

== ENCOUNTER → 2022-11-02 | Outpatient (CLI) | payer MEDICARE | LOC: M RAD 09:46 | PROVIDERS: ATTEND Internal Medicine Hematology & Oncology | DX: C83.30 Diffuse large B-cell lymphoma, unspecified site (principal); Z85.3 Personal history of malignant neoplasm of breast; I89.0 Lymphedema, not elsewhere classified; E78.00 Pure hypercholesterolemia, unspecified; E11.9 Type 2 diabetes mellitus without complications ==

== ENCOUNTER → 2022-12-02 | Outpatient (RCR) | payer MEDICARE ==
[~2022-12-02] MED LIST changes: +PRED50TA PO
== END ==
LOC: M ONCR 11-02 08:19
PROVIDERS: ATTEND General Practice
DX: C83.39 Diffuse large B-cell lymphoma, extranodal and solid organ sites (principal); C50.212 Malignant neoplasm of upper-inner quadrant of left female breast

== ENCOUNTER → 2023-02-23 | Outpatient (REF) | payer MEDICARE, OTHER ==
[2023-02-23 18:15] LABS: MAU/CREAT RATIO 7.8 MCG/MG (0.0-30.0)
== END ==
LOC: M LAB REF 16:13
PROVIDERS: ATTEND Nurse Practitioner Family
DX: E11.9 Type 2 diabetes mellitus without complications (principal)

== ENCOUNTER → 2023-03-03 | Outpatient (CLI) | payer MEDICARE ==
[~2023-03-03] MED LIST changes: +DULO30CA9 PO
== END ==
LOC: M ONCR 13:14
PROVIDERS: ATTEND General Practice
DX: C83.39 Diffuse large B-cell lymphoma, extranodal and solid organ sites (principal); Z85.3 Personal history of malignant neoplasm of breast; G62.9 Polyneuropathy, unspecified; Z71.2 Person consulting for explanation of examination or test findings; Z79.84 Long term (current) use of oral hypoglycemic drugs; Z79.85 Long-term (current) use of injectable non-insulin antidiabetic drugs; Z79.899 Other long term (current) drug therapy; Z87.891 Personal history of nicotine dependence; Z88.0 Allergy status to penicillin; Z88.1 Allergy status to other antibiotic agents; Z88.2 Allergy status to sulfonamides; Z88.8 Allergy status to other drugs, medicaments and biological substances; Z90.12 Acquired absence of left breast and nipple; Z92.21 Personal history of antineoplastic chemotherapy; Z92.3 Personal history of irradiation

== ENCOUNTER → 2023-03-16 | Outpatient (CLI) | payer MEDICARE ==
[~2023-03-16] MED LIST changes: +GASTROGRAFIN SOLUTION 30ML As Ordered ONE; +ISOVUE-370 76% 100ML VIAL As Ordered ONE; -LIDO1CRE42 EXT; +LIDO30CR18 EXT
== END ==
LOC: M RAD 14:16
PROVIDERS: ATTEND Internal Medicine Hematology & Oncology
DX: C85.10 Unspecified B-cell lymphoma, unspecified site (principal); R61 Generalized hyperhidrosis; I89.0 Lymphedema, not elsewhere classified; C50.212 Malignant neoplasm of upper-inner quadrant of left female breast; G62.9 Polyneuropathy, unspecified; C83.30 Diffuse large B-cell lymphoma, unspecified site; E11.9 Type 2 diabetes mellitus without complications; G62.0 Drug-induced polyneuropathy; M19.90 Unspecified osteoarthritis, unspecified site; M54.9 Dorsalgia, unspecified
CPT/HCPCS: 71260; 74177; Q9963; Q9967

== ENCOUNTER → 2023-03-31 | Outpatient (CLI) | payer MEDICARE ==
[~2023-03-31] MED LIST changes: -GASTROGRAFIN SOLUTION 30ML As Ordered ONE; -ISOVUE-370 76% 100ML VIAL As Ordered ONE
== END ==
LOC: M WHC 09:17
PROVIDERS: ATTEND Internal Medicine Hematology & Oncology
DX: Z12.31 Encounter for screening mammogram for malignant neoplasm of breast (principal); Z85.3 Personal history of malignant neoplasm of breast; Z90.12 Acquired absence of left breast and nipple

== ENCOUNTER 2023-04-18 09:41 | Outpatient (RCR) | payer MEDICARE | END 2023-05-04 | LOC: M PT 09:41 | PROVIDERS: ATTEND Internal Medicine Hematology & Oncology | DX: G62.9 Polyneuropathy, unspecified (principal); C50.212 Malignant neoplasm of upper-inner quadrant of left female breast ==

== ENCOUNTER → 2023-08-08 | Outpatient (CLI) | payer MEDICARE ==
[~2023-08-08] MED LIST changes: +ISOVUE-370 76% 100ML VIAL As Ordered ONE
== END ==
LOC: M RAD 09:40
PROVIDERS: ATTEND Nurse Practitioner Family
DX: C83.30 Diffuse large B-cell lymphoma, unspecified site (principal); K76.0 Fatty (change of) liver, not elsewhere classified; M79.89 Other specified soft tissue disorders
CPT/HCPCS: 71260; 74177; Q9967

== ENCOUNTER → 2023-09-01 | Outpatient (CLI) | payer MEDICARE ==
[~2023-09-01] MED LIST changes: -ISOVUE-370 76% 100ML VIAL As Ordered ONE
== END ==
LOC: M ONCR 13:18
PROVIDERS: ATTEND General Practice
DX: C83.39 Diffuse large B-cell lymphoma, extranodal and solid organ sites (principal); Z85.3 Personal history of malignant neoplasm of breast; M19.90 Unspecified osteoarthritis, unspecified site; Z71.2 Person consulting for explanation of examination or test findings; Z87.891 Personal history of nicotine dependence; Z88.0 Allergy status to penicillin; Z88.1 Allergy status to other antibiotic agents; Z88.2 Allergy status to sulfonamides; Z88.8 Allergy status to other drugs, medicaments and biological substances; Z79.84 Long term (current) use of oral hypoglycemic drugs; Z79.85 Long-term (current) use of injectable non-insulin antidiabetic drugs; Z79.899 Other long term (current) drug therapy; Z90.12 Acquired absence of left breast and nipple; Z92.21 Personal history of antineoplastic chemotherapy; Z92.3 Personal history of irradiation

== ENCOUNTER → 2023-09-13 | Outpatient (CLI) | payer MEDICARE | LOC: M CARPUL 10:57 | PROVIDERS: ATTEND Nurse Practitioner Family | DX: R01.1 Cardiac murmur, unspecified (principal); I08.3 Combined rheumatic disorders of mitral, aortic and tricuspid valves ==

== ENCOUNTER 2023-10-16 09:53 | Outpatient (RCR) | payer MEDICARE ==
[2023-10-16] MEDS ORDERED: CALC1TAB42 PO (12:51)
[2023-10-16] MEDS ORDERED: METF500T13 PO (12:51)
[2023-10-16] MEDS ORDERED: CHOL125C5 PO (12:51)
[2023-10-16] MEDS ORDERED: NEUR400C PO (12:51)
[2023-10-16] MEDS ORDERED: LIDO30CR18 TOP (13:22)
[2023-10-16] MEDS ORDERED: VALA500T5 PO (13:24)
== END 2023-11-02 ==
LOC: M PT 09:53
PROVIDERS: ATTEND Internal Medicine Hematology & Oncology
DX: G62.9 Polyneuropathy, unspecified (principal); C50.212 Malignant neoplasm of upper-inner quadrant of left female breast

== ENCOUNTER → 2024-02-05 | Outpatient (REF) | payer MEDICARE ==
[~2024-02-05] MED LIST changes: +CALC1TAB42 PO; +CHOL125C5 PO; +LIDO30CR18 TOP; +METF500T13 PO; +NEUR400C PO
[2024-02-05 12:46] LABS: CHOLESTEROL RISK RATIO 3.2 (<5); LDL CHOLESTEROL 83.8 MG/DL (<100)
[2024-02-05 12:49] LABS: THYROID STIMULATING HORMONE 1.797 uIU/ML (0.55-4.78); TOTAL 25(OH) VITAMIN D 55.3 NG/ML (20.0-100.0)
[2024-02-05 12:51] LABS: BASO # 0.1 10^3/uL (0.0-0.2); BASO % 0.8 % (0.0-1.0); EOS # 0.4 10^3/uL (0.0-0.5); EOS % 5.4 % (0.0-3.0); HEMATOCRIT 33.9 % (36.0-47.0); LYMPH # 1.1 10^3/uL (1.5-5.0); LYMPH % 17.2 % (24.0-44.0); MEAN CORPUSCULAR HEMOGLOBIN 27.9 pg (27.0-33.0); MEAN CORPUSCULAR HGB CONC 32.4 g/dl (32.0-36.5); MONO # 0.5 10^3/uL (0.0-0.8); NEUTROPHILS # 4.5 10^3/uL (1.5-8.5); NEUTROPHILS % 68.3 % (36.0-66.0); PLATELET COUNT, AUTOMATED 196 10^3/uL (150-450); RED BLOOD COUNT 3.94 10^6/uL (4.00-5.40); WHITE BLOOD COUNT 6.5 10^3/uL (4.0-10.0)
[2024-02-05 13:01] LABS: HEMOGLOBIN A1c 6.2 % (4.0-6.0)
== END ==
LOC: M LAB REF 12:00
PROVIDERS: ATTEND Nurse Practitioner Family
DX: Z13.6 Encounter for screening for cardiovascular disorders (principal); E66.3 Overweight; E55.9 Vitamin D deficiency, unspecified; R53.83 Other fatigue; Z79.899 Other long term (current) drug therapy

== ENCOUNTER → 2024-02-06 | Outpatient (CLI) | payer MEDICARE ==
[~2024-02-06] MED LIST changes: +GASTROGRAFIN SOLUTION 30ML As Ordered ONE; +ISOVUE-370 76% 100ML VIAL As Ordered ONE
== END ==
LOC: M RAD 08:53
PROVIDERS: ATTEND Internal Medicine Hematology & Oncology
DX: C85.90 Non-Hodgkin lymphoma, unspecified, unspecified site (principal)
CPT/HCPCS: 70491; 71260; 74177; Q9963; Q9967

== ENCOUNTER → 2024-04-02 | Outpatient (CLI) | payer MEDICARE ==
[~2024-04-02] MED LIST changes: +BENA25CA4 PO; -GASTROGRAFIN SOLUTION 30ML As Ordered ONE; -ISOVUE-370 76% 100ML VIAL As Ordered ONE; +K-PHTAB2 PO; +K-PHTAB4 PO
== END ==
LOC: M WHC 09:43
PROVIDERS: ATTEND Internal Medicine Hematology & Oncology
DX: Z12.31 Encounter for screening mammogram for malignant neoplasm of breast (principal); Z85.3 Personal history of malignant neoplasm of breast; Z90.12 Acquired absence of left breast and nipple
CPT/HCPCS: 77067; G0279

== ENCOUNTER 2024-04-16 09:40 | Outpatient (RCR) | payer MEDICARE ==
[2024-05-09] MEDS ORDERED: GABA-284 PO (09:35)
[2024-05-15] MEDS ORDERED: [UNRECOGNIZED DRUG - OTHER] TOP (11:29)
[2024-05-15] MEDS ORDERED: [UNRECOGNIZED DRUG - OTHER] (11:31)
[2024-05-15] MEDS ORDERED: [UNRECOGNIZED DRUG - SUPPLY] TOP (11:39)
== END 2024-05-04 ==
LOC: M PT 09:40
PROVIDERS: ATTEND Internal Medicine Hematology & Oncology
DX: G62.9 Polyneuropathy, unspecified (principal); C50.212 Malignant neoplasm of upper-inner quadrant of left female breast

== ENCOUNTER → 2024-07-25 | Outpatient (CLI) | payer MEDICARE ==
[~2024-07-25] MED LIST changes: +CLOP75TA2; -CYCL5TAB PO; +CYCL5TAB4 PO; +ECOT81TA5 PO; +GABA-284 PO; +GASTROGRAFIN SOLUTION 30ML As Ordered ONE; +ISOVUE-370 76% 100ML VIAL As Ordered ONE; +METO1TAB87; +[UNRECOGNIZED DRUG - OTHER]; +[UNRECOGNIZED DRUG - OTHER] TOP; +[UNRECOGNIZED DRUG - SUPPLY] TOP
== END ==
LOC: M RAD 14:27
PROVIDERS: ATTEND Internal Medicine Hematology & Oncology
DX: C83.30 Diffuse large B-cell lymphoma, unspecified site (principal); R91.8 Other nonspecific abnormal finding of lung field
CPT/HCPCS: 71260; 74177; Q9963; Q9967

== ENCOUNTER → 2024-07-31 | Outpatient (CLI) | payer MEDICARE ==
[~2024-07-31] MED LIST changes: -GASTROGRAFIN SOLUTION 30ML As Ordered ONE; -ISOVUE-370 76% 100ML VIAL As Ordered ONE
== END ==
LOC: M PLAIMG 06:33
PROVIDERS: ATTEND Nurse Practitioner Family
DX: M54.16 Radiculopathy, lumbar region (principal)

== ENCOUNTER → 2024-09-11 | Outpatient (CLI) | payer MEDICARE | LOC: M ONCR 09:26 | PROVIDERS: ATTEND General Practice | DX: Z08 Encounter for follow-up examination after completed treatment for malignant neoplasm (principal); Z85.72 Personal history of non-Hodgkin lymphomas; Z85.3 Personal history of malignant neoplasm of breast; Z90.12 Acquired absence of left breast and nipple; Z92.21 Personal history of antineoplastic chemotherapy; Z92.3 Personal history of irradiation; Z88.0 Allergy status to penicillin; Z88.1 Allergy status to other antibiotic agents; Z88.2 Allergy status to sulfonamides; Z88.8 Allergy status to other drugs, medicaments and biological substances; Z79.899 Other long term (current) drug therapy; Z79.620 Long term (current) use of immunosuppressive biologic; Z79.02 Long term (current) use of antithrombotics/antiplatelets; Z79.52 Long term (current) use of systemic steroids; Z79.82 Long term (current) use of aspirin; Z79.84 Long term (current) use of oral hypoglycemic drugs; Z79.85 Long-term (current) use of injectable non-insulin antidiabetic drugs; Z95.828 Presence of other vascular implants and grafts; Z87.891 Personal history of nicotine dependence; Z99.89 Dependence on other enabling machines and devices ==

== ENCOUNTER → 2024-10-16 | Outpatient (CLI) | payer MEDICARE ==
[~2024-10-16] VITALS: Ht 161.3 cm; Wt 55.0 kg
[~2024-10-16] MED LIST changes: +LIDOCAINE 1% MDV 20ML VIAL As Ordered ONE
[2024-10-16 07:19] VITALS: TEMP 97.3
[2024-10-16] MEDS: NS (Normal Saline) 0.9% 1,000 ML IV SCH (07:35)
[2024-10-16 07:57] LABS: HEMATOCRIT 31.5 % (36.0-47.0); HEMOGLOBIN 10.2 g/dl (12.0-15.5); MEAN CORPUSCULAR HEMOGLOBIN 28.2 pg (27.0-33.0); MEAN CORPUSCULAR HGB CONC 32.4 g/dl (32.0-36.5); PLATELET COUNT, AUTOMATED 210 10^3/uL (150-450); RED BLOOD COUNT 3.62 10^6/uL (4.00-5.40); WHITE BLOOD COUNT 8.9 10^3/uL (4.0-10.0)
[2024-10-16] MEDS: ceFAZolin SOD 2 GM in IV 1 EA IV ONE (08:06)
[2024-10-16] MEDS: MIDAZOLAM INJ 2MG/2ML VIAL IV PRN (08:06)
[2024-10-16] MEDS: fentaNYL 100 MCG/2 ML INJECTION IV PRN (08:06)
[2024-10-16] MEDS: LIDOCAINE 1% MDV 20ML VIAL SC ONE (08:06)
[2024-10-16 08:10] LABS: INR 0.93; PROTHROMBIN TIME 12.8 SECONDS (12.5-14.5)
[2024-10-16 08:36] LABS: ALKALINE PHOSPHATASE 128 U/L (35-104); ALT/SGPT 10 U/L (7.0-40); AST/SGOT 32 U/L (<34); BILIRUBIN,TOTAL 0.9 MG/DL (0.3-1.2); BLOOD UREA NITROGEN 24 MG/DL (9-23); CALCIUM LEVEL 9.9 MG/DL (8.3-10.6); CARBON DIOXIDE LEVEL 28 MMOL/L (20-31); CHLORIDE LEVEL 103 MMOL/L (98-107); CREATININE FOR GFR 0.78 MG/DL (0.55-1.30); GLOMERULAR FILTRATION RATE > 60.0 (>39); GLUCOSE, FASTING 143 MG/DL (74-106); POTASSIUM SERUM 4.4 MMOL/L (3.5-5.1); SODIUM LEVEL 141 MMOL/L (136-145); TOTAL PROTEIN 7.2 G/DL (5.7-8.2)
[2024-10-16 08:57] VITALS: BP 116/56; O2SAT 97
== END ==
LOC: M IRPRO 07:04
PROVIDERS: ATTEND General Practice
DX: C50.212 Malignant neoplasm of upper-inner quadrant of left female breast (principal); C83.398 Diffuse large B-cell lymphoma of other extranodal and solid organ sites
CPT/HCPCS: 36590; 80053; 85027; 85610; 99152; J0690; J2250; J3010

== ENCOUNTER → 2024-11-05 | Outpatient (CLI) | payer MEDICARE ==
[~2024-11-05] MED LIST changes: +ISOVUE-370 76% 100ML VIAL ONE; -LIDOCAINE 1% MDV 20ML VIAL As Ordered ONE
== END ==
LOC: M PLAIMG 07:34
PROVIDERS: ATTEND Internal Medicine Hematology & Oncology
DX: D50.9 Iron deficiency anemia, unspecified (principal); D64.9 Anemia, unspecified; C85.10 Unspecified B-cell lymphoma, unspecified site; R61 Generalized hyperhidrosis; I89.0 Lymphedema, not elsewhere classified; C50.212 Malignant neoplasm of upper-inner quadrant of left female breast; G62.9 Polyneuropathy, unspecified; C83.30 Diffuse large B-cell lymphoma, unspecified site; E11.9 Type 2 diabetes mellitus without complications; E78.00 Pure hypercholesterolemia, unspecified; G62.0 Drug-induced polyneuropathy; M19.90 Unspecified osteoarthritis, unspecified site; M54.9 Dorsalgia, unspecified; Z95.1 Presence of aortocoronary bypass graft; Z90.12 Acquired absence of left breast and nipple
CPT/HCPCS: 71260; Q9967

== ENCOUNTER 2024-12-30 09:47 | Day surgery (SDC) | payer MEDICARE ==
[~2024-12-30] VITALS: Ht 160 cm; Wt 56.7 kg
[~2024-12-30 09:47] MED LIST changes: +ATOR40TA75 PO; +GLIP-318 PO; -GLIP5TAB20 PO; -ISOVUE-370 76% 100ML VIAL ONE; +KP V1TAB2 PO; -PRED50TA PO; +PRED50TA57 PO
[2024-12-30] MEDS ORDERED: propofoL 200 MG/20 ML VIAL As Ordered ONE (11:00)
[2024-12-30] MEDS ORDERED: LIDOCAINE 2% 100MG/5ML SDV (FOR ANES.) As Ordered ONE (11:00)
[2024-12-30] MEDS ORDERED: PHENYLephrine 500MCG 5ML (100MCG/ML) SYRINGE As Ordered ONE (11:29)
[2024-12-30 11:33] VITALS: TEMP 96.8
[2024-12-30 12:05] VITALS: BP 136/62; O2SAT 100
== END 2024-12-30 12:13 | disposition home or self-care (01) ==
LOC: M OPP 09:47
PROVIDERS: ATTEND Internal Medicine Gastroenterology
DX: K22.70 Barrett's esophagus without dysplasia (principal); K57.30 Diverticulosis of large intestine without perforation or abscess without bleeding; K64.0 First degree hemorrhoids; D50.9 Iron deficiency anemia, unspecified; Z88.0 Allergy status to penicillin; Z88.2 Allergy status to sulfonamides; Z88.8 Allergy status to other drugs, medicaments and biological substances; Z79.84 Long term (current) use of oral hypoglycemic drugs; Z79.899 Other long term (current) drug therapy; Z95.1 Presence of aortocoronary bypass graft; Z87.891 Personal history of nicotine dependence
CPT/HCPCS: 43239; 45378; 88305; J2371

== ENCOUNTER → 2025-04-03 | Outpatient (CLI) | payer MEDICARE ==
[~2025-04-03] MED LIST changes: +TURM1CAP7 PO; -TURM500C3 PO
== END ==
LOC: M WHC 09:57
PROVIDERS: ATTEND Internal Medicine Hematology & Oncology
DX: Z12.31 Encounter for screening mammogram for malignant neoplasm of breast (principal); R92.323 Mammographic fibroglandular density, bilateral breasts
CPT/HCPCS: 77067; G0279

== ENCOUNTER 2025-04-16 07:56 | Outpatient (RCR) | payer MEDICARE | END 2025-05-04 | LOC: M PT 07:56 | PROVIDERS: ATTEND Internal Medicine Hematology & Oncology | DX: I89.0 Lymphedema, not elsewhere classified (principal) ==

== ENCOUNTER → 2025-08-07 | Outpatient (REF) | payer MEDICARE | LOC: M LAB REF 13:41 | PROVIDERS: ATTEND Nurse Practitioner Family | DX: J06.9 Acute upper respiratory infection, unspecified (principal) ==